=== PATIENT | female | born 1965 | race Caucasian/White ===

== ENCOUNTER 2020-01-11 11:29 | Emergency (ER) | payer OTHER ==
[~2020-01-11] VITALS: Ht 165.1 cm; Wt 107.5 kg
[2020-01-11] MEDS ORDERED: PROPRANOLOL HCL10 MG PO (12:04)
--- NOTE | 2020-01-11 12:14 | Emergency Department Note ---
History of Present Illnes History of Present Illness Chief Complaint: Genitourinary History of Present Illness This is a 54 year old female, the history of cirrhosis, hepatitis C, anxiety, portal vein thrombosis, and portal hypertension, who presents with a four-day history of progressively worsening burning on urination along with urinary frequency. She has not seen blood in the urine, but she has had a scant amount of blood on the tissue when wiping, after voiding. Patient denies any fever, chills, nausea, vomiting, abdominal pain, or vaginal discharge. Patient has had UTIs in the past, with last one being approximately 6 months ago. Historian: Patient Arrival Mode: Car Onset (how long ago): day(s) (4) Location: urinary tract Quality: burning/pain Radiation: Reports non-radiation Severity: moderate Onset quality: gradual Duration (how long): day(s) (4) Timing of current episode: constant Progression: worsening Chronicity: new Context: Denies recent illness, Denies trauma/injury, Denies new medications Relieving factors: none Exacerbating factors: none Associated symptoms: Denies chest pain, Denies cough, Denies fever/chills, Denies nausea/vomiting, Denies shortness of breath Treatments prior to arrival: none Past Medical/Family History Physician Review I have reviewed the patient's past medical and family history. Any updates have been documented here. Past Medical History Recent Fever: No Clinical Suspicion of Infectio: Yes New/Unexplained Change in Ment: No Past Medical History: Hepatitis C, Liver Disease, Anxiety, DVT/PE Other Medical History: Spleenomegally 2nd emily to cirrohsis Cirrohsis 2ndary ex etoh abuse (stopped drinking age 35) and Hepatitis C (now treated) Portal hypertension 2nd to cirrohsis Blood clots in Portal gustavo (measures 1.8cm) and SMV (Pt see's Dr Greta Zambrano in [place] for Hematology) EX-Etoh abuse Past Surgical History: (x4) Other Surgery: Left eye orbit rebuilt 2ndary to trauma Social History Smoking Cessation: Never Smoker Alcohol Use: None Any Illegal Drug Use: No TB Exposure/Symptoms: No Physically hurt or threatened: No Family History Family history of heart diseas: No Other Any Pre-Existing Lines (PICC,: No Is patient up to date on immun: No Review of Systems Review of Systems Constitutional: Denies chills, Denies fever, Denies weakness EENTM: Reports no symptoms Cardiovascular: Denies chest pain, Denies palpitations Respiratory: Denies cough, Denies dyspnea Gastrointestinal: Denies abdominal pain, Denies diarrhea, Denies nausea, Denies vomiting Genitourinary: Reports dysuria, Reports frequency; Denies discharge, Denies hematuria Musculoskeletal: Denies back pain, Denies neck pain Integumentary: Denies change in color, Denies rash Neurological: Denies headache, Denies weakness Psychological: Reports anxiety Review of other systems: All other systems negative Physical Exam Related Data Allergies: Coded Allergies: No Known Allergies (Unverified , 01/11/20) Triage Vital Signs Vital Signs Date Time Temp Pulse Resp B/P (MAP) Pulse Ox O2 Delivery O2 Flow Rate FiO2 01/11/20 11:38 98.4 57 18 119/79 100 Room Air Vital signs reviewed: Yes Physical Exam CONSTITUTIONAL Constitutional: Present well-developed, Present well-nourished; Absent distressed, Absent ill appearing HENT HENT: Present normocephalic, Present atraumatic, Present oropharynx clear/moist, Present nose normal; Absent rhinorrhea HENT L/R: Present left TM normal, Present right TM normal, Present left ext ear normal, Present right ext ear normal EYES Eyes: Reports PERRL, Reports conjunctivae normal NECK Neck: Present ROM normal; Absent cervical adenopathy PULMONARY Pulmonary: Present effort normal, Present breath sounds normal CARDIOVASCULAR Cardiovascular: Present regular rhythm, Present heart sounds normal, Present capillary refill normal, Present normal rate; Absent murmur GASTROINTESTINAL Abdominal: Present soft, Present nontender, Present bowel sounds normal; Absent tender, Absent guarding GENITOURINARY Genitourinary: Present exam deferred SKIN Skin: Present warm, Present dry; Absent rash MUSCULOSKELETAL Musculoskeletal: Present ROM normal; Absent tenderness NEUROLOGICAL Neurological: Present alert, Present oriented x 3, Present no gross motor or sensory deficits PSYCHOLOGICAL Psychological: Present mood/affect normal, Present judgement normal Results Laboratory Laboratory UA - blo - moderate, pro - 100 mg/dl, nit - positive; adolfo - small; Lab results reviewed: Yes Assessment & Plan Medical Decision Making MDM - Increase water intake, especially water. Recommend that you drink at least 8 bottles/water per day. - Follow-up with your PCP next week, to re-check your urine and blood work, due to the antibiotics. - Follow-up sooner, if your symptoms worsen. Assessment & Plan Final Impression: (1) Urinary tract infection (2) Dysuria Depart Disposition: HOME, SELF-CARE Last Vital Signs Date Time Temp Pulse Resp B/P (MAP) Pulse Ox O2 Delivery O2 Flow Rate FiO2 01/11/20 11:38 98.4 57 18 119/79 100 Room Air Home Meds Active Scripts Ciprofloxacin Hcl (CIPRO) 500 Mg Tablet, 500 MG PO BID for urinary tract infection for 7 Days, #14 TAB 0 Refills Prov:JANI NUNO MD 01/11/20 Phenazopyridine Hcl (PHENAZOPYRIDINE HCL) 100 Mg Tablet, 200 MG PO TID for urinary pain for 3 Days, #9 TAB 0 Refills Prov:JANI NUNO MD 01/11/20 Reported Medications Propranolol Hcl (PROPRANOLOL HCL) 10 Mg Tablet, 20 MG PO TID, TAB 01/11/20 JANI NUNO MD Jan 11, 2020 12:14
--- OUTSIDE RECORDS SUMMARY | 2020-01-11 12:34 | XMS REPORT | Clinical Summary ---
Author Author [facility] Organization [facility] Address Unknown Phone Unavailable Care Team Providers Care Emergency Room Clerk Name Role Phone PCP Unavailable Allergies Comments Active Allergy Reactions Severity Noted Date Morphine Nausea Only Medium 06/17/2009 Medications End Date Status Medication Sig Dispensed Refills Start Date Active lactulose (CEPHULAC, Take 1 Packet 90 Each 6 KRISTALOSE) 20 gram oral by mouth 3 3 packetIndications: times daily. Cirrhosis Active omeprazole (PRILOSEC) 20 Take 1 90 capsule 1 1 mg delayed release capsule by 3 capsuleIndications: mouth daily. Cirrhosis Active ergocalciferol (VITAMIN Take 1 16 capsule 1 D2) 50,000 unit capsule by 3 capsuleIndications: mouth weekly. Vitamin D deficiency Active ALPRAZolam (XANAX) 0.5 mg Take 0.5 mg 0 tablet by mouth 2 times daily. Active spironolactone Take 25 mg by 0 (ALDACTONE) 25 mg tablet mouth daily. Active promethazine (PHENERGAN) Take 25 mg by 0 25 mg tablet mouth every 6 hours as needed for Nausea or Vomiting. Active ONDANSETRON (ZOFRAN ODT Take by 0 OR) mouth. Active levothyroxine Take 25 mcg 0 (LEVOTHROID) 25 mcg by mouth tablet daily. Active PROPRANOLOL HCL Take by 0 (PROPRANOLOL OR) mouth. Active fluticasone (FLONASE) 50 Use 2 Sprays 16 g 0 mcg/actuation nasal in each 5 sprayIndications: nostril Bacterial sinusitis daily. Active albuterol (VENTOLIN Inhale 2 3 Month 0 HFA,PROVENTIL HFA,PROAIR Puffs by Supply 6 HFA) 90 mcg/actuation mouth 4 times inhalerIndications: Acute daily as bronchitis, unspecified needed for organism Wheezing or Shortness of Breath. Active cetirizine (ZYRTEC) 10 mg Take 1 tablet 30 tablet 0 tabletIndications: Acute by mouth 6 bronchitis, unspecified daily. organism Active Problems Problem Noted Date Vitamin D deficiency 01/30/2013 Second hand smoke exposure 01/26/2013 Pancytopenia 01/26/2013 Elevated AFP 01/26/2013 Anemia 10/27/2012 Positive DYLAN (antinuclear antibody) 10/27/2012 Stress at home 10/17/2012 Obesity 10/17/2012 Esophageal varices 04/20/2011 Insomnia 04/20/2011 Portosystemic encephalopathy 04/20/2011 Chronic headaches 04/20/2011 Portal hypertension 06/09/2010 Hypersplenism 06/09/2010 Cirrhosis; hep c ; splenomegaly - pancytopenia ;yuki l htn, esophageal 06/09/2010 varices ; AFP elevated Chronic Hepatitis- grade 4 stage 4 06/05/2009 Splenomegaly 06/05/2009 Depression/Anxiety 02/14/2009 Hepatitis C - h/of IV drugs in early 1989, as of 2012- no alcohol , no 09/17/2008 substance abuse ; ex-spouse with h/of h ep c and IV drug abuse Immunizations Name Administration Dates Next Due Influenza Vaccine 01/25/2015 (Deferred: Unava ilable-Patient to return for vaccine later - vaccine sent out b/c of storm warning), 01/26/2013 PPV 23 Pneumococcal 01/26/2013 Polysaccaride Tdap Tetanus, diphtheria, 01/26/2013 acellular pertussis Vaccine Twinrix-HEP A&b 03/11/2010, 11/04/2009, 09/09/200911/2009 Family History Medical History Relation Name Comments Cancer Father Diabetes Father Hypertension Father Arthritis Maternal Grandfather Pulmonary Maternal Grandfather Arthritis Maternal Grandmother Cancer Maternal Grandmother Stroke Maternal Grandmother Cancer Mother Heart Mother Arthritis Paternal Grandfather Hypertension Paternal Grandfather Arthritis Paternal Grandmother Hypertension Paternal Grandmother Relation Name Status Comments Brother Alive x5 Father Alive Maternal Grandfather Maternal Grandmother Mother Paternal Grandfather Paternal Grandmother Sister Alive x3 Social History Date Tobacco Use Types Packs/Day Years Used Never Smoker Smokeless Tobacco: Never Used Tobacco Cessation: Counseling Given: No Drinks/Week oz/Week Comments 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 Last Filed Vital Signs Not on file Plan of Treatment Health Maintenance Due Date Last Done Comments Breast Cancer Scrn 11/12/2009 11/12/2008 (Yearly) Cervical Cancer Scrn (3 08/01/2014 08/02/2011 Yrs) Colorectal Cancer Scrn 2017 Annual (FIT/FOBT) Age 50 to 75 Results Not on fileafter 01/10/2019 Insurance Type Payer Benefit Subscriber ID Effective Phone Address Plan / Dates Group [facility] xxxxxxxxx 2015-P [phone] [address] [address] [place] [address]
--- OUTSIDE RECORDS SUMMARY | 2020-01-11 12:34 | XMS REPORT | Clinical Summary ---
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 Active propranolol (INDERAL) 20 Take 20 mg by 0 04/27 MG tablet mouth. 8 Active spironolactone Take 25 mg by 0 (ALDACTONE) 25 MG tablet mouth. 8 Active cholecalciferol, vitamin Take 50,000 0 04/27 D3, 50,000 unit capsule Units by 8 mouth. Active promethazine (PHENERGAN) Take 25 mg by 0 25 MG tablet mouth every 6 (six) hours as needed for Nausea. Active ondansetron (ZOFRAN) 4 MG Take 4 mg by 0 tablet mouth 2 (two) times daily as needed for Nausea. Active albuterol HFA (VENTOLIN Inhale 1 puff 0 HFA) 90 mcg/actuation by mouth via inhaler inhaler every 6 (six) hours as needed for Wheezing. 08/09/2019 Discontinued NEXIUM 40 mg capsule daily . 0 8 08/09/2019 Discontinued propranolol (INDERAL) 20 Take 20 mg by 0 03/03 MG tablet mouth. 8 08/09/2019 Discontinued spironolactone Take 25 mg by 0 (ALDACTONE) 25 MG tablet mouth. 8 08/30/2019 Discontinued tretinoin (RETIN-A) 0.05 Apply 0 / /201 % cream sparingly to 8 areas of acne every night day for one week, then nightly if skin is not dry. Wear sunscreen. 08/30/2019 Discontinued clotrimazole (ALEVAZOL) 1 Apply 0 08/2 1/201 % Oint topically to 9 feet and between toes twice daily for 2-4 weeks Active Problems Problem Noted Date Abdominal pain, unspecified abdominal location 04/03 Nausea and vomiting, intractability of vomiting not s pecified, unspecified 04/03/2018 vomiting type Thrombocytopenia 04/03/2018 Chronic anticoagulation 04/03/2018 Cirrhosis of liver 05/10/2017 Last Assessment & Plan: Ms Chandra has a known diagnosis of cirr hosis, biopsy proven in 2008. She has had esophageal varices, unclear if banding was ever done. ? PSE. Review of records from [facility] reveal a normal EGD in 2008. Most recent EGD per patient was in 2012 which showe d small esophageal varices. We will do laboratory testing to exclud e other causes for chronic liver disease. Clinically, she appears early for liver transplantation but will await labs to calculate MELD score. If she does have HCC then she may need evaluation for liver transplantation. The plan was discussed with the patient and caregiver. Chronic hepatitis C without hepatic coma 05/10/2017 Last Assessment & Plan: HCV infection, s/p treatment with SOF/R BV and has achieved SVR. Screening for endocrine/metabolic/immunity disorders 05/10/2017 Last Assessment & Plan: Serological tests will be completed to determine the presence of immunity to hepatitis A and B. If found suscepti ble she will be referred to her primary care provider to consider the a dministration of the appropriate vaccines. Screening for malignant neoplasm 05/10/2017 Last Assessment & Plan: Cirrhosis, regardless of etiology, is a risk factor for hepatocellular carcinoma (HCC), with an annual inciden ce of 1.5-7%. We recommend surveillance for HCC with abdominal yasir ging and alphafetoprotein every 6 months. Imaging and serum AFP has been requested. Portal hypertension 05/10/2017 Last Assessment & Plan: She is overdue for EGD, advised to get it done through Dr Nunez and provide us a copy. If an EGD has been d one after 2012 then a copy of the procedure will suffice to make further recommendations. Hepatic encephalopathy 05/10/2017 Encounters Care Team Description Date Type Specialty Abbe Keenan MD Hall, Sophia Marie, NP Cirrhosis of liver without ascites, unsp ecified hepatic cirrhosis type (HCC) (Primary Dx); Screening for malignant neoplasm 01/07/2020 Audio - Hepatology Telemedicine Kayla Danielle MA 01/04/2020 Documentation Hepatology Jeanna Prajapati MD [address] [facility] Room Hoarseness 12/13/2019 Hospital Computed Tomography Encounter Jeanna Prajapati MD [address] [facility] Room Left-sided chest pain 12/13/2019 [facility] Computed Tomography Encounter Jeanna Prajapati MD [address] [facility] Room Abdominal pain, unspecified abdominal lo cation; Portal hypertension (HCC); NAFLD (nonalcoholic fatty liver disease); Portal vein thrombosis; Splenic sequestration 12/13/2019 Hospital Computed Tomography Encounter Jeanna Prajapati MD Phlebolithiasis (Primary Dx) 12/13/2019 Outside Orders Central Scheduling Jeanna Prajapati MD Hoarseness (Primary Dx); Left-sided chest pain 11/09/2019 Outside Orders Central Scheduling Abbe Keenan MD Gaikwad, Tanmayi A., [employer] OUT[employer] ENGINE MECHANIC Cirrhosis of liver without ascites, unsp ecified hepatic cirrhosis type (HCC) (Primary Dx) 10/17/2019 Audio - Hepatology Telemedicine Martha Castillo MA virtual video appt 10/16/2019 Telephone Hepatology Olga Domínguez NP Cirrhosis of liver without ascites, unsp ecified hepatic cirrhosis type (HCC) (Primary Dx); Screening for malignant neoplasm; Abnormal liver diagnostic imaging 10/11/2019 Orders Only Hepatology Kayla Danielle MA Appointment 09/28/2019 Telephone Hepatology Jeanna Prajapati MD Abdominal pain, unspecified abdominal lo cation (Primary Dx); Portal hypertension (HCC); NAFLD (nonalcoholic fatty liver disease); Portal vein thrombosis; Splenic sequestration 08/31/2019 Outside Orders Central Scheduling 08/09/2019 Hospital Pre-Admission Testi ng Encounter 08/09/2019 Travel Jeanna Prajapati MD Tendinopathy of left rotator cuff (Prima ry Dx) 01/10/2019 Outside Orders Central Scheduling Jeanna Prajapati MD 01/10/2019 Outside Orders Central Scheduling after 01/10/2019 Family History Medical History Relation Name Comments Diabetes Father Heart disease Mother Cancer Sister Unremarkable Sister Hyperlipidemia Sister Relation Name Status Comments Father Alive Mother Sister Alive Sister Alive Sister Alive Social History Date Tobacco Use Types Packs/Day Years Used Never Smoker Smokeless Tobacco: Never Used Alcohol Use Drinks/Week oz/Week Comments No Alcohol Habits Answer Date Recorded How often do you have a drink containing alcohol? Never 08/09/2019 How many drinks containing alcohol do you have on No t asked a typical day when you are drinking? How often do you have six or more drinks on one Not asked occasion? Sex Assigned at Date Recorded Not on file Industry Job Start Date Occupation Not on file Not on file Not on file Travel End Travel History Travel Start No recent travel history available. Last Filed Vital Signs Time Taken Vital Sign Reading - Blood Pressure - - Pulse - - Temperature - - Respiratory Rate - - Oxygen Saturation - - Inhaled Oxygen - Concentration 08/09/2019 1:47 PM CDT Weight 103.9 kg (229 lb) 08/09/2019 1:47 PM CDT Height 165.1 cm (5' 5") 08/09/2019 1:47 PM CDT Body Mass Index 38.11 Plan of Treatment Health Maintenance Due Date Last Done Comments COLON CANCER SCREENING 1967 COLONOSCOPY CERVICAL CANCER SCREENING 01/28/1988 PAP ONLY (Age 21-65) LIPID PANEL 01/28/2012 INFLUENZA VACCINE (#1) 2019 BREAST CANCER SCREENING 04/03/2020 04/03/2018 PNEUMOCOCCAL VACCINE 2-64 Completed 01/26/2013 YEARS AT RISK Procedures Comments Procedure Name Priority Date/Time Associated Diag nosis CT NECK SOFT TISSUE WITH Routine 12/13/2019 Hoar seness IV CONTRAST 10:[address] ABDOMEN/PELVIS WITH & STAT 12/13/2019 Abdom inal pain, WITHOUT IV CONTRAST 10:49 AM CDT unspecified abdom inal location Portal hypertension (HCC) NAFLD (nonalcoholic fatty liver disease) Portal vein thrombosis Splenic sequestration POCT-CREATININE Routine 12/13/2019 10:22 AM CDT after 01/10/2019 Results * CT neck soft tissue with IV contrast (12/13/2019 10:59 AM CDT) Specimen Narrative Performed At FINAL REPORT [facility] Examination:CT, SOFT TISSUE NECK, WITH IV CONTRAST History: Hoarseness; throat pain. Dysph agia. Comparison studies: None Technique: Axial images from the skull base to the thoracic inlet Coronal and sagittal reformatted images . Dose modulation, iterative reconstructi on, and/or weight based adjustment of the mA/kV was utilized to reduce the radiation dose to as low as reasonably achievable. Intravenous contrast: 75mL of Isovue 30 0. Findings: Soft tissues: No abnormalities. Aerodigestive tract: No abnormality. Lymph nodes: No radiographically significant adenopa thy. Vessels: Arteries and veins are patent. Thyroid gland: Normal in size and homogeneous. Submandibular glands: Normal in size and homogeneous. Parotid glands: Normal in size and homogeneous. Orbits: No abnormalities. Paranasal sinuses: Chronic right maxill emily sinusitis. Scattered inflammatory mucosal thickening of the bilateral ethmoid air cells. Mild inflammatory mucosal thickening of the bilateral inferior frontal and anterior bilateral sphenoid sinuses. 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 Temporal bones: No abnormalities. Skull base and facial bones:Intact. Cervical spine: No disc bulge or herniation or foramina l or canal stenosis. Visualized lung apices: No abnormalities. IMPRESSION: No abnormality of the pharynx or larynx . Signed: Ashley Eng MD Report Verified Date/Time: 0 10:30:10 Reading Location: [address] [id number] Procedure Note Interface, External Ris In - 12/14/2019 10:32 AM CDT FINAL REPORT Examination:CT, SOFT TISSUE NECK, WITH IV CONTRAST History: Hoarseness; throat pain. Dysphagia. Comparison studies: None Technique: Axial images from the skull base to the thoracic inlet Coronal and sagittal reformatted images. Dose modulation, iterative reconstruction, and/or weight based adjustment of the mA/kV was utilized to reduce the radiation dose to as low as reasonably achievable. Intravenous contrast: 75mL of Isovue 300. Findings: Soft tissues: No abnormalities. Aerodigestive tract: No abnormality. Lymph nodes: No radiographically significant adenopathy. Vessels: Arteries and veins are patent. Thyroid gland: Normal in size and homogeneous. Submandibular glands: Normal in size and homogeneous. Parotid glands: Normal in size and homogeneous. Orbits: No abnormalities. Paranasal sinuses: Chronic right maxillary sinusitis. Scattered inflammatory mucosal thickening of the bilateral ethmoid air cells. Mild inflammatory mucosal thickening of the bilateral inferior frontal and anterior bilateral sphenoid sinuses. 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 Temporal bones: No abnormalities. Skull base and facial bones: Intact. Cervical spine: No disc bulge or herniation or foraminal or canal stenosis. Visualized lung apices: No abnormalities. IMPRESSION: No abnormality of the pharynx or larynx. Signed: Ashley Eng MD Report Verified Date/Time: 12/14/2019 10:30:10 Reading Location: [facility] Reading Room [address] [place] [address] Performing Organization Address City/State/Zipcode Ph one Number [employer] RIS * CT abdomen/pelvis without & with IV contrast (12/13/2019 10:49 AM CDT) Specimen Narrative Performed At FINAL REPORT [facility] CT of the abdomen with and without cont rast, CT of chest and pelvis with contrast Clinical History:Abdominal pain, un specified abdominal location Technique: CT of the abdomen is perform ed without IV contrast, followed by CT of chest, abdomen and pe lvis performed with intravenous contrast administration and without oral contrast administration.This exam was perfor med according to our departmental dose optimization program which includes automated exposure control, adjustment of the mA and/or kV according to patient's size and/or use of iterative reconstructive technique. Comparison Film:None Discussion: There is no supraclavicular, axillary, mediastinal or hilar lymphadenopathy. Visualized thyroid gla nd is unremarkable. Heart is normal in size, no pericardial effusion . Periesophageal varices are noted. There is no mass or consolidation, no p leural effusion. The central airways are patent, no significant bron chiectasis, or bronchial wall thickening. Liver is cirrhotic. No suspicious liver mass is identified. The periumbilical vein is recanalized. No b iliary ductal dilatation, gallbladder is normal. There is nonoccl usive thrombus in the main portal vein and SMV, main portal vein m easures 1.8 cm in diameter. Spleen is markedly enlarged and measure s 21.6 cm sagittally. The pancreas, adrenal glands appear unremar kable. Kidneys demonstrate no hydronephrosis, mass or radiopaque ston e. No evidence of bowel obstruction, or ab normal bowel wall thickening. No pericecal inflammatory change. In the pelvis, the bladder, uterus and adnexa are unremarkable. There is a small umbilical hernia conta ining varices. No ascites. No adenopathy. Bony structures demonstrate early degenerative changes. No suspicious bony lesion is identified . Impression: Cirrhosis and splenomegaly. 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 Signed: Adrian Gamez MD Report Verified Date/Time: 0 11:32:42 Reading Location: [facility] C013X [employer] Reading Room Procedure Note Interface, External Ris In - 12/13/2019 3:[address] FINAL REPORT CT of the abdomen with and without contrast, CT of chest and pelvis with contrast Clinical History: Abdominal pain, unspecified abdominal location Technique: CT of the abdomen is performed without IV contrast, followed by CT of chest, abdomen and pelvis performed with intravenous contrast administration and without oral contrast administration. This exam was performed according to our departmental dose optimization program which includes automated exposure control, adjustment of the mA and/or kV according to patient's size and/or use of iterative reconstructive technique. Comparison Film: None Discussion: There is no supraclavicular, axillary, mediastinal or hilar lymphadenopathy. Visualized thyroid gland is unremarkable. Heart is normal in size, no pericardial effusion. Periesophageal varices are noted. There is no mass or consolidation, no pleural effusion. The central airways are patent, no significant bronchiectasis, or bronchial wall thickening. Liver is cirrhotic. No suspicious liver mass is identified. The periumbilical vein is recanalized. No biliary ductal dilatation, gallbladder is normal. There is nonocclusive thrombus in the main portal vein and SMV, main portal vein measures 1.8 cm in diameter. Spleen is markedly enlarged and measures 21.6 cm sagittally. The pancreas, adrenal glands appear unremarkable. Kidneys demonstrate no hydronephrosis, mass or radiopaque stone. No evidence of bowel obstruction, or abnormal bowel wall thickening. No pericecal inflammatory change. In the pelvis, the bladder, uterus and adnexa are unremarkable. There is a small umbilical hernia containing varices. No ascites. No adenopathy. Bony structures demonstrate early degenerative changes. No suspicious bony lesion is identified. Impression: Cirrhosis and splenomegaly. 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 Signed: Adrian Gamez MD Report Verified Date/Time: 12/13/2019 11:32:42 Reading Location: [facility] B1 C013X Ortho Consult Reading Room Performing Organization Address City/[facility]/Zipcode Ph one Number GE RIS * POC-Creatinine (12/13/2019 10:22 AM CDT) POC-Creatinine 0.6Comment: : TESTED AT [facility] 0.6 - 1.3 mg/dL [place] [id number] [place] [address]: [employer] Furnace Tender/Wash Crew Person ID = [id number] for CLARITA LIRIANO POC-EGFR 105 mL/min/1.73M2 [facility] Specimen Blood Performing Organization Address [facility] Ph one Number [facility] [address] [place] [address] [phone] after 01/10/2019 Insurance Payer Benefit Subscriber ID Type Phone Address Plan / Group BOSS MEDICAID MEDICAID xxxxxxxxx BOSS [id number]
--- OUTSIDE RECORDS SUMMARY | 2020-01-11 12:35 | XMS REPORT | Continuity of Care Document ---
Author Author [facility] t Organization [facility] Address [address] [place] [address] Phone Unavailable Care Team Providers Care Renal Dialysis Technician Name Role Phone Alo DESAI, Jeanna PCP Tita Keenan MD Attphys Sang SKI LIFT MECHANIC, Iliana Espinoza Attphys Kayla Danielle MA Attphys Unavailable Ro Barfield Attphys Talia Ely Attphys Patricia Alicea Attphys Unavailable Justo-Jo-Ann Diaz Attphys Unavailable Nakul Kincaid Attphys Unavailable Nakul Garduno Attphys Unavailable Jeanan Guillaume MD Attphys 1, [address] Room [facility] Attphys Unavailable JEANNA GUILLAUME Attphys Unavailable Taye Acosta Attphys Unavailable Renetta May Attphys Unavailable Brandy Spangler Attphys Martha Castillo MA Attphys Unavailable Justus Tripathi MD Attphys Connie Colon Attphys Unavailable Zoya Louis Attphys Rosalinda DESAI, Hemalatha Attphys Brittney Palmira Attphys Clarita Flores Attphys Unavailable Wells, Stephanie Attphys Unavailable Caraballo, Jennifer Attphys Unavailable Wevicki MedAdherence,, Jaleesa Attphys Unavailabl e Salas, G Paulina Attphys Unavailable Alo DESAI, Jeanna Attphys FELIPA CAROLE BACA Attphys Unavailable ILIANA BURDEN Attphys Unavailable Lico Ro Unavailable Payers Payer Name Policy Type Policy Number Effective Date Expiration Date Govind crum BOSS MEDICAIDMEDICAID [id number] xxxxxxxxx [facility] Problems Condition Name Condition Details Condition Category Status Onset Date Resolution Date Last Treatment Date Treating Clinician Comments Source ADJUSTMENT DISORDER, W/ MIXED ANXIETY AND DEPRESSED MOOD Condition Active 2020-01-03 00:00:00 2020-01-03 09:35:07 Ro Barfield [facility] 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 Condition Active 2019-01-11 00:00:00 2019-01-11 09:14:08 Ro Barfield [facility] SOCIAL ANXIETY DISORDER / SOCIAL PHOBIA Condition Active 2018-12-30 00:00:00 2018-12-30 10:14:40 Ro Barfield [facility] PTSD Condition Active 2018-12-30 00:00:00 2018-12-30 10:1 4:40 L[facility] Abdominal pain, unspecified abdominal location Abdomin al pain, unspecified abdominal location Disease Active 2018-04-03 00:00:00 [facility] Nausea and vomiting, intractability of v omiting not specified, unspecified vomiting type Nausea and vomiting, intractability of v omiting not specified, unspecified vomiting type Disease Active 2018-04-03 00:00:00 [facility] Thrombocytopenia Thrombocytopenia Disease Active 2018-04-03 00:00:00 [facility] Chronic anticoagulation Chronic anticoagulation Disease Active 2018-04-03 00:00:00 [facility] Cirrhosis of liver Cirrhosis of liver Disease Active 2017-05-10 00:00:0 0 Last Assessment & Plan: Ms Chandra has a known diagnosis of cirrhosis, biopsy proven in 2008. She has had esophageal varices, unclear if banding was ever done. ? PSE. Review of [facility] reveal a normal EGD in 2008. Most recent EGD per patient was in 2012 which showed small esophageal varices. We will do laboratory testing to exclude other causes for chronic liver disease. Clinically, she appears early for liver transplantation but will await labs to calculate MELD score. If she does have HCC then she may need evaluation for liver transplantation.The plan was discussed with the patient and caregiver. [facility] Chronic hepatitis C without hepatic coma Chronic hepat itis C without hepatic coma Disease Active 2017-05-10 00:00:00 Last Assessment & Plan: HCV infection, s/p treatment with SOF/RBV and has achieved SVR. [facility] Screening for malignant neoplasm Screening for malignant neoplas m Disease Active 2017-05-10 00:00:00 Last Ass essment & Plan: Cirrhosis, regardless of etiology, is a risk factor for hepatocellular carcinoma (HCC), with an annual incidence of 1.5-7%. We recommend surveillance for HCC with abdominal imaging and alphafetoprotein every 6 months. Imaging and serum AFP has been requested. [facility] Portal hypertension Portal hypertension Disease Active 2017-05-10 00:00 :00 Last Assessment & Plan: She is overdue f or EGD, advised to get it done through Dr Mora and provide us a copy. If an EGD has been done after 2012 then a copy of the procedure will suffice to make further recommendations. [facility] Hepatic encephalopathy Hepatic encephalopathy Disease Active 2017-05-10 00:00:00 [facility] Vitamin D deficiency Vitamin D deficiency Disease Active 00:00:00 [facility] Second hand smoke exposure Second hand smoke exposure Disease Active 2013-01-26 00:00:00 [facility] Pancytopenia Pancytopenia Disease Active 2013-01-26 00:00:00 [facility] Elevated AFP Elevated AFP Disease Active 2013-01-26 00:00:00 [facility] Anemia Anemia Disease Active 2012-10-27 00:00:00 [facility] Positive DYLAN (antinuclear antibody) Positive DYLAN (antinuclear an tibody) Disease Active 2012-10-27 00:00:00 Erin campbell [facility] Stress at home Stress at home Disease Active 2012-10-17 00:00:00 [facility] Obesity Obesity Disease Active 2012-10-17 00:00:00 [facility] Esophageal varices Esophageal varices Disease Active 2011-04-20 00:00:0 0 [facility] Insomnia Insomnia Disease Active 2011-04-20 00:00:00 [facility] 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 2011-04-20 00:00:00 [facility] ealth Chronic headaches Chronic headaches Disease Active 2011-04-20 00:00:00 [facility] Portal hypertension Portal hypertension Disease Active 2010-06-09 00:00 :00 [facility] Hypersplenism Hypersplenism Disease Active 2010-06-09 00:00:00 [facility] Cirrhosis; hep c ; splenomegaly - pancyt openia ;portal htn, esophageal varices ; AFP elevated Cirrhosis; hep c ; splenomegaly - pancyt openia ;portal htn, esophageal varices ; AFP elevated Disease Active 2010-06-09 00:00:00 [facility] Chronic Hepatitis- grade 4 stage 4 Chronic Hepatitis- grade 4 st age 4 Disease Active 2009-06-05 [facility] Splenomegaly Splenomegaly Disease Active 2009-06-05 00:00:00 [facility] Depression/Anxiety Depression/Anxiety Disease Active 2009-02-14 00:00:0 0 [facility] Hepatitis C - h/of IV drugs in early 0, as of 10/2012- no alcohol , no substance abuse ; ex-spouse with h/of hep c and IV drug abuse Hepatitis C - h/of IV drugs in early 1989, as of 10/2012- no alcohol , no substance abuse ; ex-spouse with h/of hep c and IV drug abuse Disease Active 200 12-09-15 00:00:00 [facility] Allergies, Adverse Reactions, Alerts Allergy Name Allergy Type Status Severity Reaction(s) Onset Date Inacti ve Date Treating Clinician Comments Source fentanyl DA Active SV 2018-11-29 00:00:00 [facility] Fentanyl Propensity to adverse reactions Active Itching 2018-11 00:00:00 [facility] No Known Allergies DA Active U 2018-07-24 00:00:00 [facility] No Known Allergies DA Active U 2018-05-22 00:00:00 [facility] No Known Allergies DA Active U 2017-06-02 00:00:00 [facility] Morphine Propensity to adverse reactions to drug Active Nausea Only 2009-06-17 00:00:00 [facility] Morphine Propensity to adverse reactions Active [facility] Family History Family Member Diagnosis Comments Start Date Stop Date Source Natural mother Heart disease [facility] Natural mother Cancer [facility] Natural mother Heart [facility] [place] Natural sister Cancer [facility] Natural sister Unremarkable [facility] Natural sister Hyperlipidemia [facility] Natural father Cancer [facility] [place] Natural father Diabetes [facility] [place] Natural father Hypertension [facility] Maternal grandfather Arthritis [facility] Maternal grandfather Pulmonary [facility] Maternal grandmother Arthritis [facility] Maternal grandmother Cancer [facility] Maternal grandmother Stroke [facility] Paternal grandfather Arthritis [facility] Paternal grandfather [facility] Paternal grandmother Arthritis [facility] Paternal grandmother Hypertension [facility] Social History Social Habit Start Date Stop Date Quantity Comments Source History SDOH Alcohol Std Drinks [facility] History SDOH Alcohol Binge [facility] Sex [facility] drug use, illicit 2020-01-03 09:08:31 2020-01-03 09:08:31 [facility] alcohol use 2020-01-03 09:08:31 2020-01-03 09:08:31 Never [facility] social history E&M 2020-01-03 09:08:31 2020-01-03 09:08:31 [place] [id number] children ( 19, 20, 29, 28 yo) from the marriage Not homeless. lives with her partner for 15 yrHighest education level: high school graduate. worked as MA, on SSD due to PTSD Sex at : Female. Gender of partner(s): Male. Sexually Active: Yes. [facility] social history reviewed E&M 2020-01-03 09:08:31 2020-01-03 09:08 :31 reviewed today [facility] tobacco use (cigarettes, cigar, chew, pipe) 2020-01-03 09:08 :31 2020-01-03 09:08:31 Currently [facility] time of call 2019-12-13 09:59:53 2019-12-13 09:59:53 12/13/2019 9:59 AM [facility] History SDOH Alcohol Frequency 2019-08-09 00:00:00 2019-08-09 00:00:0 0 1 [facility] Weight Management Counseling Provided 2019-03-15 09:43:21 2018-05-16 09:43:21 Follow Up Done [facility] smoking, advice to quit 2018-12-30 09:12:41 2018-12-30 09:12:41 Yes [facility] home/family situation, assessment 2018-12-30 09:12:41 2018-12-30 09:12:41 lives with her partner for 15 yr [facility] sex at 2018-12-30 09:12:41 2018-12-30 09:12:41 Female [facility] patient considered to be homeless 2018-12-30 09:12:41 2018-12-30 09:1 2:41 No [facility] family support 2018-12-30 09:12:41 2018-12-30 09:12:41 [place] [id number] children ( 19, 20, 29, 28 yo) from the marriage [facility] Alcohol intake 2015-12-11 00:00:00 2015-12-11 00:00:00 Current non-drinker of alcohol (finding) [facility] Alcohol Comment 2009-02-14 00:00:00 2009-02-14 00:00:00 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 Ordering Clinician Indication Dosage Frequency Signature (SIG) Comments Components Source (ALPRAZOLAM) 2 MG TABS 2019-12-14 00:00:00 Yes Ro Barfield 1{Tablet} 2xD 1 tab p.o. Twice a Day for anxiety [facility] (ALPRAZOLAM) 2 MG TABS 2019-12-14 00:00:00 2019-12-14 00:00:00 N o Ro Barfield 1{Tablet} 2xD 1 tab Twice a Day As Needed for anxiety [facility] (ALPRAZOLAM) 2 MG TABS 2019-12-11 00:00:00 2019-12-14 00:00:00 N o Ro Barfield 1{Tablet} 2xD 1 tab p.o. Twice a Day [facility] EFFEXOR XR (VENLAFAXINE HCL) 37.5 MG [id number] 2 00:00:00 2019-01-11 00:00:00 No Starr Lico 1 pill Every Morning [facility] (PRAZOSIN HCL) 2 MG CAPS 2018-12-30 00:00:00 2019-01-11 00:00:00 No Starr Lico 1 pill p.o. take at bedtime [facility] (ALPRAZOLAM) 2 MG TABS 2018-12-22 00:00:00 2019-12-11 00:00:00 N addison Barfield TAKE 1 TABLET BY MOUTH TWICE DAILY NEEDED #60, 30 d ays supply, Prescribed by JEANNA GUILLAUME, Filled 12/22/2018 [facility] clotrimazole (ALEVAZOL) 1 % Oint 2018-11-22 00:00:00 2019-08 18:57:57 No Apply topically to feet and between toes twice daily for 2-4 weeks [facility] VITAMIN D (ERGOCALCIFEROL) (ERGOCALCIFEROL) 1.25 MG (44856 U T) CAPS 2018-10-27 00:00:00 Yes TAKE 1 CAPSULE BY MOUTH ONCE EVERY MONTH #1, 28 days supply, Prescribed by JEANNA GUILLAUME, Filled 12/17/2018 [facility] (PROPRANOLOL HCL) 20 MG TABS 2018-08-17 00:00:00 Yes TAKE 1 TABLET BY MOUTH ONCE DAILY #30, 30 days supply, Prescribed by JOLEEN CHICAS, Filled 12/17/2018 [facility] propranolol (INDERAL) 20 MG tablet 2018-03-03 00:00:00 202 00:00:00 No 20mg Take 20 mg by mouth. [facility] spironolactone (ALDACTONE) 25 MG tablet 00:00:00 2019-08-09 00:00:00 No 25mg Take 25 mg by mouth. [facility] tretinoin (RETIN-A) 0.05 % cream 2017-10-20 00:00:00 2019-08 18:57:57 No Apply sparingly to a reas of acne every night day for one week, then nightly if skin is not dry. Wear sunscreen. [facility] promethazine (PHENERGAN) 25 MG tablet 2017-05-10 09:53:50 Y es 25mg Take 25 mg by mouth every 6 (six) hours as needed for Nausea. [facility] ondansetron (ZOFRAN) 4 MG tablet 2017-05-10 09:53:50 Yes 4mg Take 4 mg by mouth 2 (two) times daily as needed for Nausea. [facility] albuterol HFA (VENTOLIN HFA) 90 mcg/actuation inhaler 2017-05-10 09:53:50 Yes 1{puff} Inhale 1 puff b y mouth via inhaler every 6 (six) hours as needed for Wheezing. [facility] ALPRAZolam (XANAX) 0.5 MG tablet 2017-04-27 00:00:00 Yes 3 (three) times daily as needed . [facility] propranolol (INDERAL) 20 MG tablet 2017-04-27 00:00:00 Yes 20mg Take 20 mg by mouth. [facility] spironolactone (ALDACTONE) 25 MG tablet 2017-04-27 00:00:00 Yes 25mg Take 25 mg by mouth. [facility] cholecalciferol, vitamin D3, 50,000 unit capsule 2017-04-27 00:00:00 Yes [id number] Take 50,000 Units by mouth. [facility] NEXIUM 40 mg capsule 2017-04-26 00:00:00 2019-08-09 00:00:00 No QD daily . [facility] albuterol (VENTOLIN HFA,PROVENTIL HFA,PROAIR HFA) 90 mcg/act uation inhaler 2015-12-11 00:00:00 Yes Acute bronchitis, unspecified organism 2{puff} Inhale 2 Puffs by mouth 4 times daily as needed for Wheezing or Shortness of Breath. [facility] cetirizine (ZYRTEC) 10 mg tablet 2015-12-11 00:00:00 Yes Acute bronchitis, unspecified organism 10mg QD Take 1 tablet by mouth daily. [facility] ALPRAZolam (XANAX) 0.5 mg tablet 2015-01-25 13:36:17 Yes .5mg Q.5D Take 0.5 mg by mouth 2 times daily. [facility]th spironolactone (ALDACTONE) 25 mg tablet 2015-01-25 13:36:17 Yes 25mg QD Take 25 mg by mouth daily. [facility] promethazine (PHENERGAN) 25 mg tablet 2015-01-25 13:36:17 Y es 25mg Take 25 mg by mouth every 6 hours as needed for Nausea or Vomiting. [facility] ONDANSETRON (ZOFRAN ODT OR) 2015-01-25 13:36:17 Yes Take by mouth. [facility] levothyroxine (LEVOTHROID) 25 mcg tablet 2015-01-25 13:36:17 Yes 25ug QD Take 25 mcg by mouth daily. [facility] PROPRANOLOL HCL (PROPRANOLOL OR) 2015-01-25 13:36:17 Yes Take by mouth. [facility] fluticasone (FLONASE) 50 mcg/actuation nasal spray 2015-01 00:00:00 Yes Bacterial sinusitis 2{spray} QD Use 2 Sprays in each nostril d aily. [facility] ergocalciferol (VITAMIN D2) 50,000 unit capsule 2013-01-30 0 0:00:00 Yes Vitamin D deficiency [id number] Take 1 capsule by mouth weekly. [facility] lactulose (CEPHULAC, KRISTALOSE) 20 gram oral packet 2 00:00:00 Yes Cirrhosis 20g Take 1 Packet by mouth 3 times daily. [facility] omeprazole (PRILOSEC) 20 mg delayed release capsule 2012-04 00:00:00 Yes Cirrhosis 20mg QD Take 1 capsule by mouth daily. [facility] Immunizations Ordered Immunization Name Filled Immunization Name Date Status Comments Source Tdap Tetanus, diphtheria, acellular pertussis Vaccine 2013-01-26 00:00:00 Completed [facility] PPV 23 Pneumococcal Polysaccaride 2013-01-26 00:00:00 Comp leted [facility] Influenza Vaccine 2013-01-26 00:00:00 Completed [facility] Twinrix-HEP A&b 2010-03-11 00:00:00 Completed [facility] Twinrix-HEP A&b 2009-11-04 00:00:00 Completed [facility] Twinrix-HEP A&b 2009-09-09 00:00:00 Completed [facility] Vital Signs Vital Name Observation Time Observation Value Comments Source Body height 2019-08-09 13:47:00 165.1 cm [facility] Body weight Measured 2019-08-09 13:47:00 103.874 kg [facility] BMI 2019-08-09 13:47:00 38.11 kg/m2 [facility] blood pressure, diastolic 2019-06-07 10:02:49 95 mm[Hg] [facility] blood pressure, systolic 2019-06-07 10:02:49 138 mm[Hg] [facility] pulse rate 2019-06-07 10:02:49 65 /min [facility] weight E&M 2019-06-07 10:02:49 229.25 [lb_av] [facility] weight in kilograms E&M 2019-06-07 10:02:49 104.20 kg [facility] height in centimeters E&M 2019-06-07 10:02:49 165.10 cm [facility] blood pressure, diastolic 2019-04-13 10:10:29 68 mm[Hg] [facility] blood pressure, systolic 2019-04-13 10:10:29 136 mm[Hg] [facility] pulse rate 2019-04-13 10:10:29 63 /min [facility] weight E&M 2019-04-13 10:10:29 235.40 [lb_av] [facility] weight in kilograms E&M 2019-04-13 10:10:29 107 kg [facility] height in centimeters E&M 2019-04-13 10:10:29 165.10 cm [facility] blood pressure, diastolic 2019-03-15 09:43:21 83 mm[Hg] [facility] blood pressure, systolic 2019-03-15 09:43:21 138 mm[Hg] [facility] pulse rate 2019-03-15 09:43:21 61 /min [facility] weight E&M 2019-03-15 09:43:21 233.50 [lb_av] [facility] weight in kilograms E&M 2019-03-15 09:43:21 106.14 kg [facility] height in centimeters E&M 2019-03-15 09:43:21 165.10 cm [facility] blood pressure, diastolic 2019-02-08 08:17:29 82 mm[Hg] [facility] blood pressure, systolic 2019-02-08 08:17:29 133 mm[Hg] [facility] pulse rate 2019-02-08 08:17:29 70 /min [facility] weight E&M 2019-02-08 08:17:29 234.13 [lb_av] [facility] weight in kilograms E&M 2019-02-08 08:17:29 106.42 kg [facility] height in centimeters E&M 2019-02-08 08:17:29 165.10 cm [facility] blood pressure, diastolic 2019-01-11 08:17:01 81 mm[Hg] [facility] blood pressure, systolic 2019-01-11 08:17:01 136 mm[Hg] [facility] pulse rate 2019-01-11 08:17:01 58 /min [facility] weight E&M 2019-01-11 08:17:01 231.25 [lb_av] [facility] weight in kilograms E&M 2019-01-11 08:17:01 105.11 kg [facility] height in centimeters E&M 2019-01-11 08:17:01 165.10 cm [facility] blood pressure, diastolic 2018-12-30 09:12:41 83 mm[Hg] [facility] blood pressure, systolic 2018-12-30 09:12:41 124 mm[Hg] [facility] pulse rate 2018-12-30 09:12:41 64 /min [facility] height in centimeters E&M 2018-12-30 09:12:41 165.10 cm [facility] weight E&M 2018-12-30 09:12:41 231.20 [lb_av] [facility] weight in kilograms E&M 2018-12-30 09:12:41 105.09 kg [facility] Procedures Procedure Date / Time Performed Performing Clinician Sour e CT NECK SOFT TISSUE WITH IV CONTRAST 2019-12-13 10:59:00 Emely rosen [facility] CT ABDOMEN/PELVIS WITH & WITHOUT IV CONTRAST 2019-12-13 10:49:00 Alo [facility] POCT-CREATININE 2019-12-13 10:22:00 Alo, [facility] Urine Drug Screen - In House 2019-02-08 09:04:58 Lico[facility] Diagnostic evaluation with medical - [id number] 2018-12-30 10:03:46 Q jostin [facility] Plan of Care Planned Activity Planned Date Details Comments Source Future Scheduled Test 2020-04-03 00:00:00 Screening for yoon gnant neoplasm of breast (procedure) [code = 604876009] [facility] Future Scheduled Test 2019-12-04 00:00:00 INFLUENZA VACCINE (#1) [code = INFLUENZA VACCINE (#1)] [facility] Future Scheduled Test 2017 00:00:00 Screening for yoon gnant neoplasm of colon (procedure) [code = 698673405] [facility] Scheduled Test 2014-08-01 00:00:00 Screening for yoon gnant neoplasm of cervix (procedure) [code = 630760688] [facility] Scheduled Test 2012-01-28 00:00:00 Lipid panel (proce dure) [code = 35280436] [facility] Future Scheduled Test 2009-11-12 00:00:00 Breast Cancer Scrn (Yearly) [code = Breast Cancer Scrn (Yearly)] [facility] Scheduled Test 1988-01-28 00:00:00 Screening for yoon gnant neoplasm of cervix (procedure) [code = 934341977] [facility] Future Scheduled Test 1967 00:00:00 Screening for yoon gnant neoplasm of colon (procedure) [code = 337653027] [facility] Encounters Start Date/Time End Date/Time Encounter Type Admission Type [facility] Department Encounter ID Source 2019-11-09 08:23:38 Outpatient MHSE MHSE [id number] [facility] 2020-01-03 00:00:00 2020-01-03 00:00:00 Office Visit Ro Barfield [facility] Encounter/[id number] [facility] 2020-01-03 00:00:00 2020-01-03 00:00:00 Office Visit Becca Ely [facility] Encounter/[id number] [facility] 2019-12-17 00:00:00 2019-12-17 00:00:00 Office Visit Patricia Landa Maria Romero, Jose E Zuniga Flores, Carlos E [facility] Encounter/[id number] [facility] 2019-12-14 00:00:00 2019-12-14 00:00:00 Office Visit Ro Lujan Nancy Romero, Jose E [facility] Encounter/[id number] [facility] 2019-12-13 00:00:00 2019-12-13 00:00:00 Office Visit Ro Lujan Nancy Zuniga Flores, Carlos E [facility] Encounter/[id number] [facility] 2019-12-11 00:00:00 2019-12-11 00:00:00 Office Visit Ro Lujan Nancy Campbell, Mary N [facility] Encounter/[id number] [facility] 2019-11-30 00:00:00 2019-11-30 00:00:00 Office Visit Ro Barfield [facility] Encounter/[id number] [facility] 2019-11-05 00:00:00 2019-11-05 00:00:00 Office Visit Ro Lujan Marlin Romero, Jose E [facility] Encounter/[id number] [facility] 2019-11-02 00:00:00 2019-11-02 00:00:00 Office Visit Talia Ramirez Mary N [facility] Encounter/[id number] [facility] 2019-10-19 00:00:00 2019-10-19 00:00:00 Office Visit Ro Barfield [facility] Encounter/[id number] [facility] 2019-09-06 00:00:00 2019-09-06 00:00:00 Office Visit Lico, Ro [facility] Encounter/[id number] [facility] 2019-08-13 00:00:00 2019-08-13 00:00:00 Office Visit Flavio frankel, Patricia Morrow Mary N [id number] [facility]-08-[facility]:00:00 2019-08-09 00:00:00 Office Visit Ro Barfield [facility] Encounter/[id number] [facility] 2019-07-11 00:00:00 2019-07-11 00:00:00 Office Visit Lico, Ro [facility] Encounter/[id number] [facility] 2019-07-11 00:00:00 2019-07-11 00:00:00 Office Visit Ro Barfield [facility] Encounter/[id number] [facility] 2019-06-11 10:02:34 2019-06-11 11:11:41 Office Visit Brendan Gomez [facility] [id number] 2019-06-07 00:00:00 2019-06-07 00:00:00 Office Visit Ro Barfield [facility] Encounter/[id number] [facility] 2019-06-07 00:00:00 2019-06-07 00:00:00 Office Visit Ro Lujan Nancy Guerrero, Jennifer [facility] Encounter/[id number] [facility] 2019-05-11 11:06:39 2019-05-11 12:05:30 Office Visit Zoya Mcfadden [facility] [id number] 2019-05-09 13:23:34 2019-05-09 15:08:11 Office Visit Hemalatha Tellez [facility] [id number] 2019-04-13 00:00:00 2019-04-13 00:00:00 Office Visit Lico Ro [facility] Encounter/[id number] [facility] 2019-04-13 00:00:00 2019-04-13 00:00:00 Office Visit Ro Lujan Maritza [facility] Encounter/[id number] [facility] 2019-03-15 00:00:00 2019-03-15 00:00:00 Office Visit Ro Barfield [facility] Encounter/[id number] [facility] 2019-03-15 00:00:00 2019-03-15 00:00:00 Office Visit Ro Lujan Nancy [facility] Encounter/[id number] [facility] 2019-02-22 00:00:00 2019-02-22 00:00:00 Office Visit Patricia Landa, Clarita Wells, Stephanie Caraballo, Jennifer [facility] Encounter/[id number] [facility] 2019-02-21 00:00:00 2019-02-21 00:00:00 Office Visit Ro Lujan Nancy Wehmeyer [facility],, aJleesa [facility] Encounter/[id number] [facility] 2019-02-20 00:00:00 2019-02-20 00:00:00 Office Visit Ro Barfield [facility] Encounter/[id number] [facility] 2019-02-08 00:00:00 2019-02-08 00:00:00 Office Visit Ro Lujan Nancy [facility] Encounter/[id number] [facility] 2019-02-08 00:00:00 2019-02-08 00:00:00 Office Visit Ro Barfield [facility] Encounter/[id number] [facility] 2019-02-08 00:00:00 2019-02-08 00:00:00 Office Visit Ro Lujan Nancy [facility] Encounter/[id number] [facility] 2019-01-22 00:00:00 2019-01-22 00:00:00 Office Visit Ro Lujan Nancy Torres, Daniela G [facility] Encounter/[id number] [facility] 2019-01-11 00:00:00 2019-01-11 00:00:00 Office Visit Ro Barfield [facility] Encounter/[id number] [facility] 2019-01-11 00:00:00 2019-01-11 00:00:00 Office Visit Ro Barfield [facility] Encounter/[id number] [facility] 2019-01-11 00:00:00 2019-01-11 00:00:00 Office Visit Ro Barfield [facility] Encounter/[id number] [facility] 2019-01-11 00:00:00 2019-01-11 00:00:00 Office Visit Ro Lujan Nancy [facility] Encounter/[id number] [facility] 2018-12-30 00:00:00 2018-12-30 00:00:00 Office Visit Ro Barfield [facility] Encounter/[id number] [facility] 2018-12-30 00:00:00 2018-12-30 00:00:00 Office Visit Ro Lujan Maritza [facility] Encounter/[id number] [facility] 2018-12-22 09:07:16 2018-12-22 09:37:16 Office Visit Jeanna Ma [facility] [id number] 2018-11-22 09:47:06 2018-11-22 10:17:06 Office Visit Jeanna Ma [facility] [id number] 2018-11-06 13:50:59 2018-11-06 14:10:59 Office Visit Hemalatha Tellez [facility] [id number] 2018-10-27 14:49:26 2018-10-27 15:19:26 Office Visit Jeanna Ma [facility] [id number] 2018-07-12 00:00:00 2018-07-12 00:00:00 Office Visit Remedioscharles Jo-Ann Carranza [facility] Encounter/[id number] [facility] [employer] 2017-01-21 00:00:00 2017-01-21 00:00:00 Outpatient [facility] [id number] [facility] 2016-12-17 00:00:00 2016-12-17 00:00:00 Outpatient [facility] [id number] [facility] Results Test Description Test Time Test Comments Results Result Comments Source CT, SOFT TISSUE NECK, WITH IV CONTRAST 2019-12-14 10:30:00 R eferring: Dr. Joleen Chicas FINAL REPORT Exam ination:CT, SOFT TISSUE NECK, WITH IV CONTRAST History: Hoarseness; throat pain. Dysphagia.Comparison studies: None Technique: Axial images from the skull base to the thoracic inletCoronal and sagittal reformatted images.Dose modulation, iterative reconstruction, and/or weight based adjustment of the mA/kV was utilized to reduce the radiation dose to as low as reasonably achievable. Intravenous contrast: 75mL of Isovue 300. Findings: Soft tissues:No abnormalities. Aerodigestive tract: No abnormality. Lymph nodes:No radiographically significant adenopathy. Vessels: Arteries and veins are patent. Thyroid gland: Normal in size and homogeneous. Submandibular glands:Normal in size and homogeneous. Parotid glands:Normal in size and homogeneous. Orbits: No abnormalities.Paranasal sinuses: Chronic right maxillary sinusitis. Scattered inflammatory mucosal thickening of the bilateral ethmoid air cells. Mild inflammatory mucosal thickening of the bilateral inferior frontal and anterior bilateral sphenoid sinuses. 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 Cervical spine: No disc bulge or herniation or foraminal or canal stenosis. Visualized lung apices:No abnormalities. IMPRESSION: No abnormality of the pharynx or larynx. Signed: Ashley Eng Verified Date/Time: 12/14/2019 10:30:10 Reading Location: [employer] Reading Room [address] [place] [address] neck soft tissue with IV contrast 2019-12-14 10:30:00 Interface, External Ris In - 12/14/2019 10:32 AM CDTFINAL REPORT Examination:CT, SOFT TISSUE NECK, WITH IV CONTRAST History: Hoarseness; throat pain. Dysphagia.Comparison studies: None Technique: Axial images from the skull base to the thoracic inletCoronal and sagittal reformatted images.Dose modulation, iterative reconstruction, and/or weight based adjustment of the mA/kV was utilized to reduce the radiation dose to as low as reasonably achievable. Intravenous contrast: 75mL of Isovue 300. Findings: Soft tissues:No abnormalities. Aerodigestive tract: No abnormality. Lymph nodes:No radiographically significant adenopathy. Vessels: Arteries and veins are patent. Thyroid gland: Normal in size and homogeneous. Submandibular glands:Normal in size and homogeneous. Parotid glands:Normal in size and homogeneous. Orbits: No abnormalities.Paranasal sinuses: Chronic right maxillary sinusitis. Scattered inflammatory mucosal thickening of the bilateral ethmoid air cells. Mild inflamm atory mucosal thickening of the bilateral inferior frontal and anterior bilateral sphenoid sinuses. 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 Cervical spine: No disc bulge or herniation or foraminal or canal stenosis. Visualized lung apices:No abnormalities. IMPRESSION: No abnormality of the pharynx or larynx. Signed: Ashley Eng Verified Date/Time: 12/14/2019 10:30:10 Reading Location: [employer] Reading Room [facility] B0.[address] [facility] [address], ABDOMEN 2019-12-13 11:32:00 Referring: Dr. Joleen gonzales FINAL REPORT CT of the abdomen with [...] portal vein and SMV. Signed: Adrian Gamez Verified Date/Time: 12/13/2019 11:32:42 Reading Location: [address] Ortho Consult Reading Room abdomen/pelvis without & with IV contrast 2019-12-13 11:32:00 Interface, External Ris In - 12/13/2019 3:[address] of the abdomen with and without contrast, CT of chest and pelvis with contrast Clinical History: Abdominal pain, unspecified abdominal location Technique: CT of the abdomen is performed without IV contrast, followed by CT of chest, abdomen and pelvis performed with intravenous contrast administration and witho ut oral contrast administration. This exam was performed [...] effusion. The central airways are patent, no significa nt bronchiectasis, or bronchial wall thickening. Liver is [...] portal vein and SMV. Signed: Adrian Gamez MDR[employer] Verified Date/Time: 12/13/2019 11:32:42 Reading Location: [facility] B1 [id number] Ortho Consult Reading Room [facility] POC-Creatinine 2019-12-13 10:39:00 Test Item POC-Creatinine (test code = 1859) 0.6 mg/dL 0.6-1.3 : TESTED AT [address] [address]: Photographic Reproduction Technician/Core Filer ID = [id number] for CLARITA LIRIANO POC-EGFR (test code = 1860) 105 mL/min/1.73M2 [id number] 10:39:00* Test Item Value Reference Range Interpretation Comments POC-CREATININE (CONI) (test code = 1859) 0.6 mg/dL 0.6-1.3 : TESTED AT [facility] [address] [facility] [address], [place] [address]: Photographic Reproduction Technician/Core Filer ID = [id number] for CLARITA LIRIANO POC-EGFR (CONI) (test code = 1860) 105 mL/min/1.73M2 CBC W/AUTO [id number] 16:08:00* Test Item Value Reference Range Interpretation Comments WHITE BLOOD CELL (test code = WBC) 2.3 K/mm3 4.5-12.5 L RED BLOOD CELL (test code = RBC) 4.21 mill/mm3 3.7-5.2 N HEMOGLOBIN (test code = HGB) 14.2 gram/dL 11.5-15.5 N HEMATOCRIT (test code = HCT) 40.0 % 36.0-46.0 N MEAN CELL VOLUME (test code = MCV) 95.0 fL 80-98 N MEAN CELL HGB (test code = MCH) 33.7 picogram 27.0-33.0 H MEAN CELL HGB CONCETRATION (test code = MCHC) 35.5 gram/dL 33.0-36. 0 N RED CELL DISTRIBUTION WIDTH (test code = RDW) 12.9 % 11.6-16. 2 N RED CELL DISTRIBUTION WIDTH SD (test code = RDW-SD) 44.4 fL 37 .0-51.0 N PLATELET COUNT (test code = PLT) 46 K/mm3 150-450 LL MEAN PLATELET VOLUME (test code = MPV) 11.3 fL 6.7-11.0 H NEUTROPHIL % (test code = NT%) 55.4 % 39.0-69.0 N IMMATURE GRANULOCYTE % (test code = IG%) 0.4 % 0.0-5.0 N LYMPHOCYTE % (test code = LY%) 31.2 % 25.0-55.0 N MONOCYTE % (test code = MO%) 7.8 % 0.0-10.0 N EOSINOPHIL % (test code = EO%) 3.9 % 0.0-5.0 N BASOPHIL % (test code = BA%) 1.3 % 0.0-1.0 H NUCLEATED RBC % (test code = NRBC%) 0.0 % 0-0 N NEUTROPHIL # (test code = NT#) 1.28 K/mm3 1.8-7.7 L IMMATURE GRANULOCYTE # (test code = IG#) 0.01 x10 3/uL 0-0.03 N LYMPHOCYTE # (test code = LY#) 0.72 K/mm3 1.0-5.0 L MONOCYTE # (test code = MO#) 0.18 K/mm3 0-0.8 N EOSINOPHIL # (test code = EO#) 0.09 K/mm3 0.0-0.5 N BASOPHIL # (test code = BA#) 0.03 K/mm3 0.0-0.2 N NUCLEATED RBC # (test code = NRBC#) 0.00 K/mm3 0.0-0.1 N MANUAL DIFF REQUIRED (test code = MDIFF) NO, ONLY SCAN NEEDED DIFFERENTIAL [id number] 16:08:00* Test Item Value Reference Range Interpretation Comments STAIN ACCEPTABILITY (test code = STN ACCEPTABLE) STAIN ACCEPTABLE MORPHOLOGY COMMENT (test code = MOC) NORMAL PLATELET ESTIMATE (test code = PLTEST) DECREASED PLATELET MORPHOLOGY (test code = PLTMORPH) NORMAL CBC W/AUTO [id number] 14:56:00* Test Item Value Reference Range Interpretation Comments WHITE BLOOD CELL (test code = WBC) 2.3 K/mm3 4.5-12.5 L RED BLOOD CELL (test code = RBC) 4.21 mill/mm3 3.7-5.2 N HEMOGLOBIN (test code = HGB) 14.2 gram/dL 11.5-15.5 N HEMATOCRIT (test code = HCT) 40.0 % 36.0-46.0 N MEAN CELL VOLUME (test code = MCV) 95.0 fL 80-98 N MEAN CELL HGB (test code = MCH) 33.7 picogram 27.0-33.0 H MEAN CELL HGB CONCETRATION (test code = MCHC) 35.5 gram/dL 33.0-36. 0 N RED CELL DISTRIBUTION WIDTH (test code = RDW) 12.9 % 11.6-16. 2 N RED CELL DISTRIBUTION WIDTH SD (test code = RDW-SD) 44.4 fL 37 .0-51.0 N PLATELET COUNT (test code = PLT) 46 K/mm3 150-450 LL MEAN PLATELET VOLUME (test code = MPV) 11.3 fL 6.7-11.0 H NEUTROPHIL % (test code = NT%) 55.4 % 39.0-69.0 N IMMATURE GRANULOCYTE % (test code = IG%) 0.4 % 0.0-5.0 N LYMPHOCYTE % (test code = LY%) 31.2 % 25.0-55.0 N MONOCYTE % (test code = MO%) 7.8 % 0.0-10.0 N EOSINOPHIL % (test code = EO%) 3.9 % 0.0-5.0 N BASOPHIL % (test code = BA%) 1.3 % 0.0-1.0 H NUCLEATED RBC % (test code = NRBC%) 0.0 % 0-0 N NEUTROPHIL # (test code = NT#) 1.28 K/mm3 1.8-7.7 L IMMATURE GRANULOCYTE # (test code = IG#) 0.01 x10 3/uL 0-0.03 N LYMPHOCYTE # (test code = LY#) 0.72 K/mm3 1.0-5.0 L MONOCYTE # (test code = MO#) 0.18 K/mm3 0-0.8 N EOSINOPHIL # (test code = EO#) 0.09 K/mm3 0.0-0.5 N BASOPHIL # (test code = BA#) 0.03 K/mm3 0.0-0.2 N NUCLEATED RBC # (test code = NRBC#) 0.00 K/mm3 0.0-0.1 N MANUAL DIFF REQUIRED (test code = MDIFF) NO, ONLY SCAN NEEDED DIFFERENTIAL [id number] 14:56:00* Test Item Value Reference Range Interpretation Comments STAIN ACCEPTABILITY (test code = STN ACCEPTABLE) MORPHOLOGY COMMENT (test code = MOC) PLATELET ESTIMATE (test code = PLTEST) PLATELET MORPHOLOGY (test code = PLTMORPH) CBC W/AUTO [id number] 14:53:00* Test Item Value Reference Range Interpretation Comments WHITE BLOOD CELL (test code = WBC) 2.3 K/mm3 4.5-12.5 L RED BLOOD CELL (test code = RBC) 4.21 mill/mm3 3.7-5.2 N HEMOGLOBIN (test code = HGB) 14.2 gram/dL 11.5-15.5 N HEMATOCRIT (test code = HCT) 40.0 % 36.0-46.0 N MEAN CELL VOLUME (test code = MCV) 95.0 fL 80-98 N MEAN CELL HGB (test code = MCH) 33.7 picogram 27.0-33.0 H MEAN CELL HGB CONCETRATION (test code = MCHC) 35.5 gram/dL 33.0-36. 0 N RED CELL DISTRIBUTION WIDTH (test code = RDW) 12.9 % 11.6-16. 2 N RED CELL DISTRIBUTION WIDTH SD (test code = RDW-SD) 44.4 fL 37 .0-51.0 N PLATELET COUNT (test code = PLT) 46 K/mm3 150-450 LL MEAN PLATELET VOLUME (test code = MPV) 11.3 fL 6.7-11.0 H NEUTROPHIL % (test code = NT%) 55.4 % 39.0-69.0 N IMMATURE GRANULOCYTE % (test code = IG%) 0.4 % 0.0-5.0 N LYMPHOCYTE % (test code = LY%) 31.2 % 25.0-55.0 N MONOCYTE % (test code = MO%) 7.8 % 0.0-10.0 N EOSINOPHIL % (test code = EO%) 3.9 % 0.0-5.0 N BASOPHIL % (test code = BA%) 1.3 % 0.0-1.0 H NUCLEATED RBC % (test code = NRBC%) 0.0 % 0-0 N NEUTROPHIL # (test code = NT#) 1.28 K/mm3 1.8-7.7 L IMMATURE GRANULOCYTE # (test code = IG#) 0.01 x10 3/uL 0-0.03 N LYMPHOCYTE # (test code = LY#) 0.72 K/mm3 1.0-5.0 L MONOCYTE # (test code = MO#) 0.18 K/mm3 0-0.8 N EOSINOPHIL # (test code = EO#) 0.09 K/mm3 0.0-0.5 N BASOPHIL # (test code = BA#) 0.03 K/mm3 0.0-0.2 N NUCLEATED RBC # (test code = NRBC#) 0.00 K/mm3 0.0-0.1 N MANUAL DIFF REQUIRED (test code = MDIFF) NO, ONLY SCAN NEEDED DIFFERENTIAL [id number] 14:53:00* Test Item Value Reference Range Interpretation Comments STAIN ACCEPTABILITY (test code = STN ACCEPTABLE) CABOT RINGS (test code = CAB) MORPHOLOGY COMMENT (test code = MOC) PLATELET ESTIMATE (test code = PLTEST) PLATELET MORPHOLOGY (test code = PLTMORPH) CBC W/AUTO [id number] 14:53:00* Test Item Value Reference Range Interpretation Comments WHITE BLOOD CELL (test code = WBC) 2.3 K/mm3 4.5-12.5 L RED BLOOD CELL (test code = RBC) 4.21 mill/mm3 3.7-5.2 N HEMOGLOBIN (test code = HGB) 14.2 gram/dL 11.5-15.5 N HEMATOCRIT (test code = HCT) 40.0 % 36.0-46.0 N MEAN CELL VOLUME (test code = MCV) 95.0 fL 80-98 N MEAN CELL HGB (test code = MCH) 33.7 picogram 27.0-33.0 H MEAN CELL HGB CONCETRATION (test code = MCHC) 35.5 gram/dL 33.0-36. 0 N RED CELL DISTRIBUTION WIDTH (test code = RDW) 12.9 % 11.6-16. 2 N RED CELL DISTRIBUTION WIDTH SD (test code = RDW-SD) 44.4 fL 37 .0-51.0 N PLATELET COUNT (test code = PLT) 46 K/mm3 150-450 LL MEAN PLATELET VOLUME (test code = MPV) 11.3 fL 6.7-11.0 H NEUTROPHIL % (test code = NT%) 55.4 % 39.0-69.0 N IMMATURE GRANULOCYTE % (test code = IG%) 0.4 % 0.0-5.0 N LYMPHOCYTE % (test code = LY%) 31.2 % 25.0-55.0 N MONOCYTE % (test code = MO%) 7.8 % 0.0-10.0 N EOSINOPHIL % (test code = EO%) 3.9 % 0.0-5.0 N BASOPHIL % (test code = BA%) 1.3 % 0.0-1.0 H NUCLEATED RBC % (test code = NRBC%) 0.0 % 0-0 N NEUTROPHIL # (test code = NT#) 1.28 K/mm3 1.8-7.7 L IMMATURE GRANULOCYTE # (test code = IG#) 0.01 x10 3/uL 0-0.03 N LYMPHOCYTE # (test code = LY#) 0.72 K/mm3 1.0-5.0 L MONOCYTE # (test code = MO#) 0.18 K/mm3 0-0.8 N EOSINOPHIL # (test code = EO#) 0.09 K/mm3 0.0-0.5 N BASOPHIL # (test code = BA#) 0.03 K/mm3 0.0-0.2 N NUCLEATED RBC # (test code = NRBC#) 0.00 K/mm3 0.0-0.1 N MANUAL DIFF REQUIRED (test code = MDIFF) NO, ONLY SCAN NEEDED DIFFERENTIAL [id number] 14:53:00* Test Item Value Reference Range Interpretation Comments STAIN ACCEPTABILITY (test code = STN ACCEPTABLE) MORPHOLOGY COMMENT (test code = MOC) PLATELET ESTIMATE (test code = PLTEST) PLATELET MORPHOLOGY (test code = PLTMORPH) CBC W/AUTO [id number] 14:53:00* Test Item Value Reference Range Interpretation Comments WHITE BLOOD CELL (test code = WBC) 2.3 K/mm3 4.5-12.5 L RED BLOOD CELL (test code = RBC) 4.21 mill/mm3 3.7-5.2 N HEMOGLOBIN (test code = HGB) 14.2 gram/dL 11.5-15.5 N HEMATOCRIT (test code = HCT) 40.0 % 36.0-46.0 N MEAN CELL VOLUME (test code = MCV) 95.0 fL 80-98 N MEAN CELL HGB (test code = MCH) 33.7 picogram 27.0-33.0 H MEAN CELL HGB CONCETRATION (test code = MCHC) 35.5 gram/dL 33.0-36. 0 N RED CELL DISTRIBUTION WIDTH (test code = RDW) 12.9 % 11.6-16. 2 N RED CELL DISTRIBUTION WIDTH SD (test code = RDW-SD) 44.4 fL 37 .0-51.0 N PLATELET COUNT (test code = PLT) 46 K/mm3 150-450 LL MEAN PLATELET VOLUME (test code = MPV) 11.3 fL 6.7-11.0 H NEUTROPHIL % (test code = NT%) 55.4 % 39.0-69.0 N IMMATURE GRANULOCYTE % (test code = IG%) 0.4 % 0.0-5.0 N LYMPHOCYTE % (test code = LY%) 31.2 % 25.0-55.0 N MONOCYTE % (test code = MO%) 7.8 % 0.0-10.0 N EOSINOPHIL % (test code = EO%) 3.9 % 0.0-5.0 N BASOPHIL % (test code = BA%) 1.3 % 0.0-1.0 H NUCLEATED RBC % (test code = NRBC%) 0.0 % 0-0 N NEUTROPHIL # (test code = NT#) 1.28 K/mm3 1.8-7.7 L IMMATURE GRANULOCYTE # (test code = IG#) 0.01 x10 3/uL 0-0.03 N LYMPHOCYTE # (test code = LY#) 0.72 K/mm3 1.0-5.0 L MONOCYTE # (test code = MO#) 0.18 K/mm3 0-0.8 N EOSINOPHIL # (test code = EO#) 0.09 K/mm3 0.0-0.5 N BASOPHIL # (test code = BA#) 0.03 K/mm3 0.0-0.2 N NUCLEATED RBC # (test code = NRBC#) 0.00 K/mm3 0.0-0.1 N MANUAL DIFF REQUIRED (test code = MDIFF) NO, ONLY SCAN NEEDED DIFFERENTIAL [id number] 14:53:00* Test Item Value Reference Range Interpretation Comments STAIN ACCEPTABILITY (test code = STN ACCEPTABLE) CABOT RINGS (test code = CAB) MORPHOLOGY COMMENT (test code = MOC) PLATELET ESTIMATE (test code = PLTEST) PLATELET MORPHOLOGY (test code = PLTMORPH) BASIC METABOLIC [id number] 13:53:00* Test Item Value Reference Range Interpretation Comments SODIUM (test code = NA) 139 mmol/L 136-145 N POTASSIUM (test code = K) 3.8 mmol/L 3.5-5.1 N CHLORIDE (test code = CL) 108.0 mmol/L 98-107 H CARBON DIOXIDE (test code = CO2) 26.0 mmol/L 21-32 N ANION GAP (test code = GAP) 8.8 10-20 L GLUCOSE (test code = GLU) 83 mg/dL 74-106 N BLOOD UREA NITROGEN (test code = BUN) 14 mg/dL 7-18 N GLOMERULAR FILTRATION RATE (test code = GFR) > 60 mL/min >=60 Estimated GFR by using Modified MDRD formula.Chronic kidney disease is defined as either kidney damageor GFR <60 mL/min/1.73 m2 for >3 months. CREATININE (test code = CREAT) 0.60 mg/dL 0.55-1.02 N Note change in reference range due to change in reagent. BUN/CREATININE RATIO (test code = BUN/CREA) 23.3 10-20 H CALCIUM (test code = CA) 9.0 mg/dL 8.5-10.1 N PROTHROMBIN [id number] 13:50:00* Test Item Value Reference Range Interpretation Comments PROTHROMBIN TIME PATIENT (test code = PTP) 13.2 seconds 9.0-14.0 N INTERNATIONAL NORMAL RATIO (test code = INR) 1.1 0.8-1.2 N The therapeutic range for oral anticoagulant therapy formost indications is an international normalized ratio (INR)of between 2.0 and 3.0. The recommended therapeutic INRrange for various clinical situations is listed below: Clinical Situation INR range Pulmonary e mbolism treatment (2.0-3.0)Venous thrombosis treatmentVenous thrombosis prophylaxis (high risk surgery)Prevention of systemic embolism from: Acute myocardial infarction Valvular heart disease Atrial fibrillation Mechanical prosthetic heart valves (2.5-3.5) IS PATIENT ON ANTICOAGULANTS? N- US ABDOMEN [id number] 15:54:00 Name: CASI CHANDRA [facility] : 1965 Age/S: 54 / F [address] [facility] Unit #: [id number] Loc: [facility] [address] Phys: Jared Mora MD Acct: [id number] Di s Date: Status: REG CLI PHONE #: [phone] Exam Date: 08/17/2019 1315 FAX #: Reason: ABD PAIN EXAMS: CPT CODE: [id number] US ABDOMEN CO MPLETE [id number] REASON FOR EXAM: ABD PAIN EXAM ORDER DATE: 08/17/2019 12:36 PM Orderin g: Evangelist Mora MD Attending:Evangelist Mora MD Location:[facility] PROCEDURE: - US ABDOMEN COMPLETE FINDINGS: The liver is mildly echogenic and nodular in contour. There is no evidence of focal mass identified. The pancreas is obscured by bowel gas. The right kidney measures 11 x 5.6 cm. The left kidney cameron sures 11.1 x 3.7 cm. There is no evidence of hydronephrosis. There is no evidence of nephrolithiasis. There is no evidence of renal mass. The splee n measures 21.7 cm. The gallbladder is unremarkable without evidence of gall stone. No evidence of gallbladder wall thickening or elysia cholecystic fluid. The common bile duct measures 0.3 cm. Th ere is no evidence of ascites. The aorta and IVC are within normal limits. IMPRESSION: Cirrhosis of the liver and portal hypertension. Se marie splenomegaly. Sluggish flow to the portal vein cannot exclude hepatofugal flow Electronically Signed by Mati Madera on 2019 at 1554 Reported and signed by: Arnaldo Madera M.D. CC: Evangelist Mora MD Technologist: BRIANNA CHAUDHARI RT(R),RDMS [facility] [place] Date/Time: 08/17/2019 (1554) t.[email or web address] Orig Print D/T: S: 08/17/2019 (0554) Probe: PAGE 1 Signed Report tricyclic antidrepressants, [id number] 09:20:45* Test Item Value Reference Range Interpretation Comments tricyclic antidrepressants, urine (test code = 7393) Negative [facility] Healthpropoxyphene screen, [id number] 09:20:45* Test Item Value Reference Range Interpretation Comments propoxyphene screen, urine (test code = 67221) Negative [facility], [id number] 09:20:45* Test Item Value Reference Range Interpretation Comments phencyclidine screen, urine (test code = 3936-2) Negative [facility] HealthOxycodone urine [id number] 09:20:45* Test Item Value Reference Range Interpretation Comments Oxycodone urine screening (test code = 912195) Negative [facility] Healthopiates, urine, [id number] 09:20:45* Test Item Value Reference Range Interpretation Comments opiates, urine, semiquantitative (test code = 3879-4) Negative [facility], [id number] 09:20:45* Test Item Value Reference Range Interpretation Comments morphine drug screen, urine (test code = 68791) Negative [facility] HealthEcstasy (MDMA) Screen, [id number] 09:20:45* Test Item Value Reference Range Interpretation Comments Ecstasy (MDMA) Screen, urine (test code = 64283) Negative [facility] Healthmethamphetamine screen, [id number] 09:20:45* Test Item Value Reference Range Interpretation Comments methamphetamine screen, urine (test code = 71279) Negative [facility]Methadone screen, [id number] 09:20:45* Test Item Value Reference Range Interpretation Comments Methadone screen, urine (test code = 57769-3) Negative [facility]cannabinoid screen, [id number] 09:20:45* Test Item Value Reference Range Interpretation Comments cannabinoid screen, urine (test code = 3426-4) Positive [facility] Healthcocaine, [id number] 09:20:45* Test Item Value Reference Range Interpretation Comments cocaine, urine (test code = 3292) Negative [facility]odiazepine screen, [id number] 09:20:45* Test Item Value Reference Range Interpretation Comments benzodiazepine screen, urine (test code = 3390-2) Positive [facility]barbiturates screen, [id number] 09:20:45* Test Item Value Reference Range Interpretation Comments barbiturates screen, urine (test code = 2460) Negative [facility] Healthamphetamine screen, [id number] 09:20:45* Test Item Value Reference Range Interpretation Comments amphetamine screen, urine (test code = 3349-8) Negative [facility]repress[facility], [id number] 08:17:01* Test Item Value Reference Range Interpretation Comments tricyclic antidrepressants, urine (test code = 7393) Negative [facility]prop[facility]hene screen, [id number] 08:17:01* Test Item Value Reference Range Interpretation Comments propoxyphene screen, urine (test code = 59797) Negative [facility]phencyclidine screen, [id number] 08:17:01* Test Item Value Reference Range Interpretation Comments phencyclidine screen, urine (test code = 3936-2) Negative [facility] HealthOxycodone urine [id number] 08:17:01* Test Item Value Reference Range Interpretation Comments Oxycodone urine screening (test code = 994998) Negative [facility] Healthopiates, urine, [id number] 08:17:01* Test Item Value Reference Range Interpretation Comments opiates, urine, semiquantitative (test code = 3879-4) Negative [facility]morphine drug screen, [id number] 08:17:01* Test Item Value Reference Range Interpretation Comments morphine drug screen, urine (test code = 35550) Negative [facility] HealthEcstasy (MDMA) Screen, [id number] 08:17:01* Test Item Value Reference Range Interpretation Comments Ecstasy (MDMA) Screen, urine (test code = 75787) Negative [facility] Healthmethamphetamine screen, [id number] 08:17:01* Test Item Value Reference Range Interpretation Comments methamphetamine screen, urine (test code = 77710) [facility], [id number] 08:17:01* Test Item Value Reference Range Interpretation Comments Methadone screen, urine (test code = 32903-1) Negative [facility]cannabinoid screen, [id number] 08:17:01* Test Item Value Reference Range Interpretation Comments cannabinoid screen, urine (test code = 3426-4) Positive [facility] Healthcocaine, [id number] 08:17:01* Test Item Value Reference Range Interpretation Comments cocaine, urine (test code = 3292) Negative [facility]benzodiazepine screen, [id number] 08:17:01* Test Item Value Reference Range Interpretation Comments benzodiazepine screen, urine (test code = 3390-2) Positive [facility] Healthbarbiturates screen, [id number] 08:17:01* Test Item Value Reference Range Interpretation Comments barbiturates screen, urine (test code = 2460) Negative [facility] Healthamphetamine screen, [id number] 08:17:01* Test Item Value Reference Range Interpretation Comments amphetamine screen, urine (test code = 3349-8) Negative [facility] HealthCBC W/MANUAL [id number] 10:48:00* Test Item Value Reference Range Interpretation Comments WHITE BLOOD CELL (test code = WBC) 1.6 K/mm3 4.5-12.5 L RESULT VERIFIED BY REPEAT ANALYSISHas "Path Review" been performed on patient's currentadmission? NOIf yes, please insert path review specimen here NO If not, please order "Path Review" for the followingcriteria:1/ WBC count over 40,000/mm3 or below 2,000/mm32/ Platelet counts over 1,000,000/mm3, or below 10,000/mm3, or with abnormal morphology.3/ Abnormal red cell morphology or inclusions which are severe (> 3+) , widespread, or difficult to classify.4/ Abnormal white blood cell morphology: Blasts present in peripheral blood of any patient as a new finding. Abnormal cells suspected of being blasts. Patients with large numbers of immature cells in peripheral blood. Unusual cells or cells not easily classified in peripheral blood.5/ Any smear in which the technologist is uncertain of the classification or the disease. RED BLOOD CELL (test code = RBC) 3.87 mill/mm3 3.7-5.2 N HEMOGLOBIN (test code = HGB) 13.2 gram/dL 11.5-15.5 N HEMATOCRIT (test code = HCT) 38.9 % 36.0-46.0 N MEAN CELL VOLUME (test code = MCV) 100.5 fL 80-98 H MEAN CELL HGB (test code = MCH) 34.1 picogram 27.0-33.0 H MEAN CELL HGB CONCETRATION (test code = MCHC) 33.9 gram/dL 33.0-36. 0 N RED CELL DISTRIBUTION WIDTH (test code = RDW) 13.5 % 11.6-16. 2 N RED CELL DISTRIBUTION WIDTH SD (test code = RDW-SD) 49.7 fL 37 .0-51.0 N PLATELET COUNT (test code = PLT) 31 K/mm3 150-450 LL Results called to [id number] by V.LAB. 12/01/18 1742Critical results verified and read back by Nurse? Y MEAN PLATELET VOLUME (test code = MPV) 10.3 fL 6.7-11.0 N IMMATURE GRANULOCYTE % (test code = IG%) 0.6 % 0.0-5.0 N NUCLEATED RBC % (test code = NRBC%) 0.0 % 0-0 N NEUTROPHIL # (test code = NT#) 0.94 K/mm3 1.8-7.7 L IMMATURE GRANULOCYTE # (test code = IG#) 0.01 x10 3/uL 0-0.03 N LYMPHOCYTE # (test code = LY#) 0.47 K/mm3 1.0-5.0 L MONOCYTE # (test code = MO#) 0.11 K/mm3 0-0.8 N EOSINOPHIL # (test code = EO#) 0.04 K/mm3 0.0-0.5 N BASOPHIL # (test code = BA#) 0.01 K/mm3 0.0-0.2 N NUCLEATED RBC # (test code = NRBC#) 0.00 K/mm3 0.0-0.1 N MANUAL DIFF REQUIRED (test code = MDIFF) YES STAIN ACCEPTABILITY (test code = STN ACCEPTABLE) STAIN ACCEPTABLE TOTAL CELLS COUNTED (test code = TCC) 115 #CELLS SEGMENTED NEUTROPHILS (test code = SEG) 65.2 % 39-69 N BAND NEUTROPHIL (test code = BAND) 0 % 0-10 N LYMPHOCYTE (test code = LYMPH) 22.6 % 25-55 L REACTIVE LYMPH (test code = RELYMPH) 0 % MONOCYTE (test code = MON) 7.0 % 0-10 N EOSINOPHIL (test code = EOS) 3.5 % 0.0-5.0 N BASOPHIL (test code = BASO) 1.7 % 0-1.0 H METAMYELOCYTE (test code = META) 0 % 0-0 N MYELOCYTE (test code = MYELO) 0 % 0.0-0.0 N PROMYELOCYTE (test code = PROM) 0 % 0-0 N POIKILOCYTOSIS (test code = POIK) 1+ ANISOCYTOSIS (test code = ANISO) 1+ ELLIPTOCYTES (test code = ELL) 1+ PLATELET ESTIMATE (test code = PLTEST) DECREASED PLATELET MORPHOLOGY (test code = PLTMORPH) NORMAL IMMATURE FORMS (test code = IMMAT) 0 % 0-0 N FAMILY MEMBER DOES NOT WANT THE PATIENT TO BE STUCK ARTUR [id number] AWARE V.LAB. 11/30/18 0827 PATHOLOGISTS [id number] 10:48:00* Test Item Value Reference Range Interpretation Comments PATHOLOGISTS FINDINGS (test code = PATH) COMMENTS PATH NOTES Reviewed by Dr Viviana Darby 12/06/2018Leukopenia. Thrombocytopenia.SLIDE REVIEWED BY PATHOLOGIST FAMILY MEMBER DOES NOT WANT THE PATIENT TO BE STUCK ARTUR [id number] AWARE V.LAB 11/30/18 0827 CBC W/MANUAL [id number] 22:25:00* Test Item Value Reference Range Interpretation Comments WHITE BLOOD CELL (test code = WBC) 1.6 K/mm3 4.5-12.5 L RESULT VERIFIED BY REPEAT ANALYSISHas "Path Review" been performed on patient's currentadmission? NOIf yes, please insert path review specimen here NO If not, please order "Path Review" for the followingcriteria:1/ WBC count over 40,000/mm3 or below 2,000/mm32/ Platelet counts over 1,000,000/mm3, or below 10,000/mm3, or with abnormal morphology.3/ Abnormal red cell morphology or inclusions which are severe (> 3+) , widespread, or difficult to classify.4/ Abnormal white blood cell morphology: Blasts present in peripheral blood of any patient as a new finding. Abnormal cells suspected of being blasts. Patients with large numbers of immature cells in peripheral blood. Unusual cells or cells not easily classified in peripheral blood.5/ Any smear in which the technologist is uncertain of the classification or the disease. RED BLOOD CELL (test code = RBC) 3.87 mill/mm3 3.7-5.2 N HEMOGLOBIN (test code = HGB) 13.2 gram/dL 11.5-15.5 N HEMATOCRIT (test code = HCT) 38.9 % 36.0-46.0 N MEAN CELL VOLUME (test code = MCV) 100.5 fL 80-98 H MEAN CELL HGB (test code = MCH) 34.1 picogram 27.0-33.0 H MEAN CELL HGB CONCETRATION (test code = MCHC) 33.9 gram/dL 33.0-36. 0 N RED CELL DISTRIBUTION WIDTH (test code = RDW) 13.5 % 11.6-16. 2 N RED CELL DISTRIBUTION WIDTH SD (test code = RDW-SD) 49.7 fL 37 .0-51.0 N PLATELET COUNT (test code = PLT) 31 K/mm3 150-450 LL Results called to [id number] by [facility] MedicalLAB.LL 12/01/18 1742Critical results verified and read back by Nurse? Y MEAN PLATELET VOLUME (test code = MPV) 10.3 fL 6.7-11.0 N IMMATURE GRANULOCYTE % (test code = IG%) 0.6 % 0.0-5.0 N NUCLEATED RBC % (test code = NRBC%) 0.0 % 0-0 N NEUTROPHIL # (test code = NT#) 0.94 K/mm3 1.8-7.7 L IMMATURE GRANULOCYTE # (test code = IG#) 0.01 x10 3/uL 0-0.03 N LYMPHOCYTE # (test code = LY#) 0.47 K/mm3 1.0-5.0 L MONOCYTE # (test code = MO#) 0.11 K/mm3 0-0.8 N EOSINOPHIL # (test code = EO#) 0.04 K/mm3 0.0-0.5 N BASOPHIL # (test code = BA#) 0.01 K/mm3 0.0-0.2 N NUCLEATED RBC # (test code = NRBC#) 0.00 K/mm3 0.0-0.1 N MANUAL DIFF REQUIRED (test code = MDIFF) YES STAIN ACCEPTABILITY (test code = STN ACCEPTABLE) STAIN ACCEPTABLE TOTAL CELLS COUNTED (test code = TCC) 115 #CELLS SEGMENTED NEUTROPHILS (test code = SEG) 65.2 % 39-69 N BAND NEUTROPHIL (test code = BAND) 0 % 0-10 N LYMPHOCYTE (test code = LYMPH) 22.6 % 25-55 L REACTIVE LYMPH (test code = RELYMPH) 0 % MONOCYTE (test code = MON) 7.0 % 0-10 N EOSINOPHIL (test code = EOS) 3.5 % 0.0-5.0 N BASOPHIL (test code = BASO) 1.7 % 0-1.0 H METAMYELOCYTE (test code = META) 0 % 0-0 N MYELOCYTE (test code = MYELO) 0 % 0.0-0.0 N PROMYELOCYTE (test code = PROM) 0 % 0-0 N POIKILOCYTOSIS (test code = POIK) 1+ ANISOCYTOSIS (test code = ANISO) 1+ ELLIPTOCYTES (test code = ELL) 1+ PLATELET ESTIMATE (test code = PLTEST) DECREASED PLATELET MORPHOLOGY (test code = PLTMORPH) NORMAL IMMATURE FORMS (test code = IMMAT) 0 % 0-0 N FAMILY MEMBER DOES NOT WANT THE PATIENT TO BE STUCK ARTUR [id number] AWARE V.LAB. 11/30/18 0827 PATHOLOGISTS [id number] 22:25:00* Test Item Value Reference Range Interpretation Comments PATHOLOGISTS FINDINGS (test code = PATH) PATH NOTES FAMILY MEMBER DOES NOT WANT THE PATIENT TO BE STUCK ARTUR [id number] AWARE V.LAB. 11/30/18 0827 PROTHROMBIN [id number] 17:59:00* Test Item Value Reference Range Interpretation Comments PROTHROMBIN TIME PATIENT (test code = PTP) 13.8 seconds 9.0-14.0 N INTERNATIONAL NORMAL RATIO (test code = INR) 1.2 0.8-1.2 N The therapeutic range for oral anticoagulant therapy formost indications is an international normalized ratio (INR)of between 2.0 and 3.0. The recommended therapeutic INRrange for various clinical situations is listed below: Clinical Situation INR range Pulmonary e mbolism treatment (2.0-3.0)Venous thrombosis treatmentVenous thrombosis prophylaxis (high risk surgery)Prevention of systemic embolism from: Acute myocardial infarction Valvular heart disease Atrial fibrillation Mechanical prosthetic heart valves (2.5-3.5) FAMILY MEMBER DOES NOT WANT PATIENT TO BE STUCK RN [id number] CRISTA Murray 11/03IS PATIENT ON ANTICOAGULANTS? NTHROMBOPLASTIN TIME [id number] 17:59:00* Test Item Value Reference Range Interpretation Comments THROMBOPLASTIN TIME PARTIAL (test code = PTT) 31.2 seconds 25.0-36. 5 N FAMILY MEMBER DOES NOT WANT PATIENT TO BE STUCK ARTUR [id number] CRISTA Murray 11/03IS PATIENT ON ANTICOAGULANTS? NCBC W/MANUAL [id number] 17:44:00* Test Item Value Reference Range Interpretation Comments WHITE BLOOD CELL (test code = WBC) 1.6 K/mm3 4.5-12.5 L RESULT VERIFIED BY REPEAT ANALYSISHas "Path Review" been performed on patient's currentadmission? NOIf yes, please insert path review specimen here NO If not, please order "Path Review" for the followingcriteria:1/ WBC count over 40,000/mm3 or below 2,000/mm32/ Platelet counts over 1,000,000/mm3, or below 10,000/mm3, or with abnormal morphology.3/ Abnormal red cell morphology or inclusions which are severe (> 3+) , widespread, or difficult to classify.4/ Abnormal white blood cell morphology: Blasts present in peripheral blood of any patient as a new finding. Abnormal cells suspected of being blasts. Patients with large numbers of immature cells in peripheral blood. Unusual cells or cells not easily classified in peripheral blood.5/ Any smear in which the technologist is uncertain of the classification or the disease. RED BLOOD CELL (test code = RBC) 3.87 mill/mm3 3.7-5.2 N HEMOGLOBIN (test code = HGB) 13.2 gram/dL 11.5-15.5 N HEMATOCRIT (test code = HCT) 38.9 % 36.0-46.0 N MEAN CELL VOLUME (test code = MCV) 100.5 fL 80-98 H MEAN CELL HGB (test code = MCH) 34.1 picogram 27.0-33.0 H MEAN CELL HGB CONCETRATION (test code = MCHC) 33.9 gram/dL 33.0-36. 0 N RED CELL DISTRIBUTION WIDTH (test code = RDW) 13.5 % 11.6-16. 2 N RED CELL DISTRIBUTION WIDTH SD (test code = RDW-SD) 49.7 fL 37 .0-51.0 N PLATELET COUNT (test code = PLT) 31 K/mm3 150-450 LL Results called to [id number] by V.LAB. 12/01/18 1742Critical results verified and read back by Nurse? Y MEAN PLATELET VOLUME (test code = MPV) 10.3 fL 6.7-11.0 N IMMATURE GRANULOCYTE % (test code = IG%) 0.6 % 0.0-5.0 N NUCLEATED RBC % (test code = NRBC%) 0.0 % 0-0 N NEUTROPHIL # (test code = NT#) 0.94 K/mm3 1.8-7.7 L IMMATURE GRANULOCYTE # (test code = IG#) 0.01 x10 3/uL 0-0.03 N LYMPHOCYTE # (test code = LY#) 0.47 K/mm3 1.0-5.0 L MONOCYTE # (test code = MO#) 0.11 K/mm3 0-0.8 N EOSINOPHIL # (test code = EO#) 0.04 K/mm3 0.0-0.5 N BASOPHIL # (test code = BA#) 0.01 K/mm3 0.0-0.2 N NUCLEATED RBC # (test code = NRBC#) 0.00 K/mm3 0.0-0.1 N MANUAL DIFF REQUIRED (test code = MDIFF) YES STAIN ACCEPTABILITY (test code = STN ACCEPTABLE) TOTAL CELLS COUNTED (test code = TCC) #CELLS SEGMENTED NEUTROPHILS (test code = SEG) % 39-69 LYMPHOCYTE (test code = LYMPH) % 25-55 MONOCYTE (test code = MON) % 0-10 EOSINOPHIL (test code = EOS) % 0.0-5.0 CABOT RINGS (test code = CAB) MORPHOLOGY COMMENT (test code = MOC) PLATELET ESTIMATE (test code = PLTEST) PLATELET MORPHOLOGY (test code = PLTMORPH) FAMILY MEMBER DOES NOT WANT THE PATIENT TO BE STUCK ARTUR [id number] AWARE V.LAB. 11/30/18 0827 CBC W/MANUAL [id number] 17:44:00* Test Item Value Reference Range Interpretation Comments WHITE BLOOD CELL (test code = WBC) 1.6 K/mm3 4.5-12.5 L RESULT VERIFIED BY REPEAT ANALYSISHas "Path Review" been performed on patient's currentadmission? NOIf yes, please insert path review specimen here NO If not, please order "Path Review" for the followingcriteria:1/ WBC count over 40,000/mm3 or below 2,000/mm32/ Platelet counts over 1,000,000/mm3, or below 10,000/mm3, or with abnormal morphology.3/ Abnormal red cell morphology or inclusions which are severe (> 3+) , widespread, or difficult to classify.4/ Abnormal white blood cell morphology: Blasts present in peripheral blood of any patient as a new finding. Abnormal cells suspected of being blasts. Patients with large numbers of immature cells in peripheral blood. Unusual cells or cells not easily classified in peripheral blood.5/ Any smear in which the technologist is uncertain of the classification or the disease. RED BLOOD CELL (test code = RBC) 3.87 mill/mm3 3.7-5.2 N HEMOGLOBIN (test code = HGB) 13.2 gram/dL 11.5-15.5 N HEMATOCRIT (test code = HCT) 38.9 % 36.0-46.0 N MEAN CELL VOLUME (test code = MCV) 100.5 fL 80-98 H MEAN CELL HGB (test code = MCH) 34.1 picogram 27.0-33.0 H MEAN CELL HGB CONCETRATION (test code = MCHC) 33.9 gram/dL 33.0-36. 0 N RED CELL DISTRIBUTION WIDTH (test code = RDW) 13.5 % 11.6-16. 2 N RED CELL DISTRIBUTION WIDTH SD (test code = RDW-SD) 49.7 fL 37 .0-51.0 N PLATELET COUNT (test code = PLT) 31 K/mm3 150-450 LL Results called to [id number] by [facility].MARIANELA 12/01/18 1742Critical results verified and read back by Nurse? Y MEAN PLATELET VOLUME (test code = MPV) 10.3 fL 6.7-11.0 N IMMATURE GRANULOCYTE % (test code = IG%) 0.6 % 0.0-5.0 N NUCLEATED RBC % (test code = NRBC%) 0.0 % 0-0 N NEUTROPHIL # (test code = NT#) 0.94 K/mm3 1.8-7.7 L IMMATURE GRANULOCYTE # (test code = IG#) 0.01 x10 3/uL 0-0.03 N LYMPHOCYTE # (test code = LY#) 0.47 K/mm3 1.0-5.0 L MONOCYTE # (test code = MO#) 0.11 K/mm3 0-0.8 N EOSINOPHIL # (test code = EO#) 0.04 K/mm3 0.0-0.5 N BASOPHIL # (test code = BA#) 0.01 K/mm3 0.0-0.2 N NUCLEATED RBC # (test code = NRBC#) 0.00 K/mm3 0.0-0.1 N MANUAL DIFF REQUIRED (test code = MDIFF) YES STAIN ACCEPTABILITY (test code = STN ACCEPTABLE) TOTAL CELLS COUNTED (test code = TCC) #CELLS SEGMENTED NEUTROPHILS (test code = SEG) % 39-69 LYMPHOCYTE (test code = LYMPH) % 25-55 MONOCYTE (test code = MON) % 0-10 EOSINOPHIL (test code = EOS) % 0.0-5.0 CABOT RINGS (test code = CAB) MORPHOLOGY COMMENT (test code = MOC) PLATELET ESTIMATE (test code = PLTEST) PLATELET MORPHOLOGY (test code = PLTMORPH) FAMILY MEMBER DOES NOT WANT THE PATIENT TO BE STUCK RN [id number] AWARE V.LAB. 11/30/18 0827 CBC W/MANUAL [id number] 17:44:00* Test Item Value Reference Range Interpretation Comments WHITE BLOOD CELL (test code = WBC) 1.6 K/mm3 4.5-12.5 L RESULT VERIFIED BY REPEAT ANALYSISHas "Path Review" been performed on patient's currentadmission? NOIf yes, please insert path review specimen here NO If not, please order "Path Review" for the followingcriteria:1/ WBC count over 40,000/mm3 or below 2,000/mm32/ Platelet counts over 1,000,000/mm3, or below 10,000/mm3, or with abnormal morphology.3/ Abnormal red cell morphology or inclusions which are severe (> 3+) , widespread, or difficult to classify.4/ Abnormal white blood cell morphology: Blasts present in peripheral blood of any patient as a new finding. Abnormal cells suspected of being blasts. Patients with large numbers of immature cells in peripheral blood. Unusual cells or cells not easily classified in peripheral blood.5/ Any smear in which the technologist is uncertain of the classification or the disease. RED BLOOD CELL (test code = RBC) 3.87 mill/mm3 3.7-5.2 N HEMOGLOBIN (test code = HGB) 13.2 gram/dL 11.5-15.5 N HEMATOCRIT (test code = HCT) 38.9 % 36.0-46.0 N MEAN CELL VOLUME (test code = MCV) 100.5 fL 80-98 H MEAN CELL HGB (test code = MCH) 34.1 picogram 27.0-33.0 H MEAN CELL HGB CONCETRATION (test code = MCHC) 33.9 gram/dL 33.0-36. 0 N RED CELL DISTRIBUTION WIDTH (test code = RDW) 13.5 % 11.6-16. 2 N RED CELL DISTRIBUTION WIDTH SD (test code = RDW-SD) 49.7 fL 37 .0-51.0 N PLATELET COUNT (test code = PLT) 31 K/mm3 150-450 LL Results called to [id number] by V.LAB. 12/01/18 1742Critical results verified and read back by Nurse? Y MEAN PLATELET VOLUME (test code = MPV) 10.3 fL 6.7-11.0 N IMMATURE GRANULOCYTE % (test code = IG%) 0.6 % 0.0-5.0 N NUCLEATED RBC % (test code = NRBC%) 0.0 % 0-0 N NEUTROPHIL # (test code = NT#) 0.94 K/mm3 1.8-7.7 L IMMATURE GRANULOCYTE # (test code = IG#) 0.01 x10 3/uL 0-0.03 N LYMPHOCYTE # (test code = LY#) 0.47 K/mm3 1.0-5.0 L MONOCYTE # (test code = MO#) 0.11 K/mm3 0-0.8 N EOSINOPHIL # (test code = EO#) 0.04 K/mm3 0.0-0.5 N BASOPHIL # (test code = BA#) 0.01 K/mm3 0.0-0.2 N NUCLEATED RBC # (test code = NRBC#) 0.00 K/mm3 0.0-0.1 N MANUAL DIFF REQUIRED (test code = MDIFF) YES STAIN ACCEPTABILITY (test code = STN ACCEPTABLE) TOTAL CELLS COUNTED (test code = TCC) #CELLS SEGMENTED NEUTROPHILS (test code = SEG) % 39-69 LYMPHOCYTE (test code = LYMPH) % 25-55 MONOCYTE (test code = MON) % 0-10 EOSINOPHIL (test code = EOS) % 0.0-5.0 MORPHOLOGY COMMENT (test code = MOC) PLATELET ESTIMATE (test code = PLTEST) PLATELET MORPHOLOGY (test code = PLTMORPH) FAMILY MEMBER DOES NOT WANT THE PATIENT TO BE STUCK ARTUR [id number] AWARE V.LAB. 11/30/18 0827 CBC W/MANUAL [id number] 17:44:00* Test Item Value Reference Range Interpretation Comments WHITE BLOOD CELL (test code = WBC) 1.6 K/mm3 4.5-12.5 L RESULT VERIFIED BY REPEAT ANALYSISHas "Path Review" been performed on patient's currentadmission? NOIf yes, please insert path review specimen here NO If not, please order "Path Review" for the followingcriteria:1/ WBC count over 40,000/mm3 or below 2,000/mm32/ Platelet counts over 1,000,000/mm3, or below 10,000/mm3, or with abnormal morphology.3/ Abnormal red cell morphology or inclusions which are severe (> 3+) , widespread, or difficult to classify.4/ Abnormal white blood cell morphology: Blasts present in peripheral blood of any patient as a new finding. Abnormal cells suspected of being blasts. Patients with large numbers of immature cells in peripheral blood. Unusual cells or cells not easily classified in peripheral blood.5/ Any smear in which the technologist is uncertain of the classification or the disease. RED BLOOD CELL (test code = RBC) 3.87 mill/mm3 3.7-5.2 N HEMOGLOBIN (test code = HGB) 13.2 gram/dL 11.5-15.5 N HEMATOCRIT (test code = HCT) 38.9 % 36.0-46.0 N MEAN CELL VOLUME (test code = MCV) 100.5 fL 80-98 H MEAN CELL HGB (test code = MCH) 34.1 picogram 27.0-33.0 H MEAN CELL HGB CONCETRATION (test code = MCHC) 33.9 gram/dL 33.0-36. 0 N RED CELL DISTRIBUTION WIDTH (test code = RDW) 13.5 % 11.6-16. 2 N RED CELL DISTRIBUTION WIDTH SD (test code = RDW-SD) 49.7 fL 37 .0-51.0 N PLATELET COUNT (test code = PLT) 31 K/mm3 150-450 LL Results called to [id number] by VMalachiLABMalachi 12/01/18 1742Critical results verified and read back by Nurse? Y MEAN PLATELET VOLUME (test code = MPV) 10.3 fL 6.7-11.0 N IMMATURE GRANULOCYTE % (test code = IG%) 0.6 % 0.0-5.0 N NUCLEATED RBC % (test code = NRBC%) 0.0 % 0-0 N NEUTROPHIL # (test code = NT#) 0.94 K/mm3 1.8-7.7 L IMMATURE GRANULOCYTE # (test code = IG#) 0.01 x10 3/uL 0-0.03 N LYMPHOCYTE # (test code = LY#) 0.47 K/mm3 1.0-5.0 L MONOCYTE # (test code = MO#) 0.11 K/mm3 0-0.8 N EOSINOPHIL # (test code = EO#) 0.04 K/mm3 0.0-0.5 N BASOPHIL # (test code = BA#) 0.01 K/mm3 0.0-0.2 N NUCLEATED RBC # (test code = NRBC#) 0.00 K/mm3 0.0-0.1 N MANUAL DIFF REQUIRED (test code = MDIFF) YES STAIN ACCEPTABILITY (test code = STN ACCEPTABLE) TOTAL CELLS COUNTED (test code = TCC) #CELLS SEGMENTED NEUTROPHILS (test code = SEG) % 39-69 LYMPHOCYTE (test code = LYMPH) % 25-55 MONOCYTE (test code = MON) % 0-10 MORPHOLOGY COMMENT (test code = MOC) PLATELET ESTIMATE (test code = PLTEST) PLATELET MORPHOLOGY (test code = PLTMORPH) FAMILY MEMBER DOES NOT WANT THE PATIENT TO BE STUCK RN [id number] AWARE 11/30/18 0827 CBC W/MANUAL [id number] 17:44:00* Test Item Value Reference Range Interpretation Comments WHITE BLOOD CELL (test code = WBC) 1.6 K/mm3 4.5-12.5 L RESULT VERIFIED BY REPEAT ANALYSISHas "Path Review" been performed on patient's currentadmission? NOIf yes, please insert path review specimen here NO If not, please order "Path Review" for the followingcriteria:1/ WBC count over 40,000/mm3 or below 2,000/mm32/ Platelet counts over 1,000,000/mm3, or below 10,000/mm3, or with abnormal morphology.3/ Abnormal red cell morphology or inclusions which are severe (> 3+) , widespread, or difficult to classify.4/ Abnormal white blood cell morphology: Blasts present in peripheral blood of any patient as a new finding. Abnormal cells suspected of being blasts. Patients with large numbers of immature cells in peripheral blood. Unusual cells or cells not easily classified in peripheral blood.5/ Any smear in which the technologist is uncertain of the classification or the disease. RED BLOOD CELL (test code = RBC) 3.87 mill/mm3 3.7-5.2 N HEMOGLOBIN (test code = HGB) 13.2 gram/dL 11.5-15.5 N HEMATOCRIT (test code = HCT) 38.9 % 36.0-46.0 N MEAN CELL VOLUME (test code = MCV) 100.5 fL 80-98 H MEAN CELL HGB (test code = MCH) 34.1 picogram 27.0-33.0 H MEAN CELL HGB CONCETRATION (test code = MCHC) 33.9 gram/dL 33.0-36. 0 N RED CELL DISTRIBUTION WIDTH (test code = RDW) 13.5 % 11.6-16. 2 N RED CELL DISTRIBUTION WIDTH SD (test code = RDW-SD) 49.7 fL 37 .0-51.0 N PLATELET COUNT (test code = PLT) 31 K/mm3 150-450 LL Results called to [id number] by [facility]. 12/01/18 1742Critical results verified and read back by Nurse? Y MEAN PLATELET VOLUME (test code = MPV) 10.3 fL 6.7-11.0 N IMMATURE GRANULOCYTE % (test code = IG%) 0.6 % 0.0-5.0 N NUCLEATED RBC % (test code = NRBC%) 0.0 % 0-0 N NEUTROPHIL # (test code = NT#) 0.94 K/mm3 1.8-7.7 L IMMATURE GRANULOCYTE # (test code = IG#) 0.01 x10 3/uL 0-0.03 N LYMPHOCYTE # (test code = LY#) 0.47 K/mm3 1.0-5.0 L MONOCYTE # (test code = MO#) 0.11 K/mm3 0-0.8 N EOSINOPHIL # (test code = EO#) 0.04 K/mm3 0.0-0.5 N BASOPHIL # (test code = BA#) 0.01 K/mm3 0.0-0.2 N NUCLEATED RBC # (test code = NRBC#) 0.00 K/mm3 0.0-0.1 N MANUAL DIFF REQUIRED (test code = MDIFF) YES STAIN ACCEPTABILITY (test code = STN ACCEPTABLE) TOTAL CELLS COUNTED (test code = TCC) #CELLS SEGMENTED NEUTROPHILS (test code = SEG) % 39-69 LYMPHOCYTE (test code = LYMPH) % 25-55 MONOCYTE (test code = MON) % 0-10 EOSINOPHIL (test code = EOS) % 0.0-5.0 CABOT RINGS (test code = CAB) MORPHOLOGY COMMENT (test code = MOC) PLATELET ESTIMATE (test code = PLTEST) PLATELET MORPHOLOGY (test code = PLTMORPH) FAMILY [facility]BER DOES NOT WANT THE PATIENT TO BE STUCK ARTUR [id number] AWARE [facility]. 11/30/18 0827 COMPREHENSIVE METABOLIC [id number] 17:19:00* Test Item Value Reference Range Interpretation Comments SODIUM (test code = NA) 143 mmol/L 136-145 N POTASSIUM (test code = K) 4.2 mmol/L 3.5-5.1 N CHLORIDE (test code = CL) 108.0 mmol/L 98-107 H CARBON DIOXIDE (test code = CO2) 28.0 mmol/L 21-32 N ANION GAP (test code = GAP) 11.2 10-20 N GLUCOSE (test code = GLU) 102 mg/dL 74-106 N BLOOD UREA NITROGEN (test code = BUN) 12 mg/dL 7-18 N GLOMERULAR FILTRATION RATE (test code = GFR) > 60 mL/min >=60 Estimated GFR by using Modified MDRD formula.Chronic kidney disease is defined as either kidney damageor GFR <60 mL/min/1.73 m2 for >3 months. CREATININE (test code = CREAT) 0.60 mg/dL 0.55-1.02 N Note change in reference range due to change in reagent. BUN/CREATININE RATIO (test code = BUN/CREA) 20.1 10-20 H TOTAL PROTEIN (test code = PROT) 7.4 gram/dL 6.4-8.2 N ALBUMIN (test code = ALB) 3.3 g/dL 3.4-5.0 L GLOBULIN (test code = GLOB) 4.1 gram/dL 2.7-4.2 N ALBUMIN/GLOBULIN RATIO (test code = A/G) 0.8 0.75-1.50 N CALCIUM (test code = CA) 8.4 mg/dL 8.5-10.1 L BILIRUBIN TOTAL (test code = BILT) 1.50 mg/dL 0.0-1.0 H SGOT/AST (test code = AST) 37 IUnit/L 15-37 N SGPT/ALT (test code = ALT) 28 IUnit/L 12-78 N ALKALINE PHOSPHATASE TOTAL (test code = ALKP) 88 IUnit/L 45-117 N Note change in reference range due to change in reagent. FAMILY MEMEBER DOES NOT WANT THE PATIENT TO BE STUCK ARTUR [id number] AWARE V.LAB. 11/30/18824COMMENTS TO DATA KEYER: COLLECT 3 HOURS AFTER PREVIOUS [id number] 17:19:00* Test Item Value Reference Range Interpretation Comments MAGNESIUM (test code = MAG) 1.7 mg/dL 1.8-2.4 L FAMILY MEMEBER DOES NOT WANT THE PATIENT TO BE STUCK ARTUR [id number] AWARE V.LAB. 11/30/18824COMMENTS TO DATA KEYER: COLLECT 3 HOURS AFTER PREVIOUS SAMPLEVITAMIN [id number] 17:19:00* Test Item Value Reference Range Interpretation Comments VITAMIN B12 (test code = VITB12) 623 pg/mL 193-986 N FAMILY MEMEBER DOES NOT WANT THE PATIENT TO BE STUCK ARTUR [id number] AWARE V.LAB. 11/30/18824COMMENTS TO DATA KEYER: COLLECT 3 HOURS AFTER PREVIOUS SAMPLETHYROID STIMULATING [id number] 17:19:00* Test Item Value Reference Range Interpretation Comments THYROID STIMULATING HORMONE (test code = TSH) 0.562 uIU/mL 0.36-3.7 4 N TSH REFERENCE RANGES: EUTHYROID: 0.35 - 4.3 mIU/mL HYPO : > 5.5 mIU/mL HYPER : < 0.35 mIU/mL FAMILY MEMEBER DOES NOT WANT THE PATIENT TO BE STUCK ARTUR [id number] AWARE RomeoLAB 11/30/1825COMMENTS TO DATA KEYER: COLLECT 3 HOURS AFTER PREVIOUS [id number] 17:19:00* Test Item Value Reference Range Interpretation Comments TROPONIN-I (test code = TROPI) <0.015 ng/mL 0-0.045 N FAMILY MEMEBER DOES NOT WANT THE PATIENT TO BE STUCK ARTUR CLINE AWARE 11/30/1825COMMENTS TO DATA KEYER: COLLECT 3 HOURS AFTER PREVIOUS [id number] 16:54:00* Test Item Value Reference Range Interpretation Comments TROPONIN-I (test code = TROPI) <0.015 ng/mL 0-0.045 N FAMILY MEMBER DOES NOT WANT PATIENT TO BE STUCK ARTUR CLINE AWARE 11/0328COMMENTS TO DATA KEYER: COLLECT 3 HOURS AFTER PREVIOUS SAMPLECOMPREHENSIVE METABOLIC [id number] 16:43:00* Test Item Value Reference Range Interpretation Comments SODIUM (test code = NA) 143 mmol/L 136-145 N POTASSIUM (test code = K) 4.2 mmol/L 3.5-5.1 N CHLORIDE (test code = CL) 108.0 mmol/L 98-107 H CARBON DIOXIDE (test code = CO2) mmol/L 21-32 ANION GAP (test code = GAP) 10-20 GLUCOSE (test code = GLU) mg/dL 74-106 BLOOD UREA NITROGEN (test code = BUN) mg/dL 7-18 GLOMERULAR FILTRATION RATE (test code = GFR) mL/min >=60 CREATININE (test code = CREAT) mg/dL 0.55-1.02 BUN/CREATININE RATIO (test code = BUN/CREA) 10-20 TOTAL PROTEIN (test code = PROT) gram/dL 6.4-8.2 ALBUMIN (test code = ALB) g/dL 3.4-5.0 GLOBULIN (test code = GLOB) gram/dL 2.7-4.2 ALBUMIN/GLOBULIN RATIO (test code = A/G) 0.75-1.50 CALCIUM (test code = CA) mg/dL 8.5-10.1 BILIRUBIN TOTAL (test code = BILT) mg/dL 0.0-1.0 SGOT/AST (test code = AST) IUnit/L 15-37 SGPT/ALT (test code = ALT) IUnit/L 12-78 ALKALINE PHOSPHATASE TOTAL (test code = ALKP) IUnit/L 45-117 FAMILY MEMEBER DOES NOT WANT THE PATIENT TO BE STUCK ARTUR [id number] AWARE V.LAB. 11/30/18824COMMENTS TO DATA KEYER: COLLECT 3 HOURS AFTER PREVIOUS [id number] 16:43:00* Test Item Value Reference Range Interpretation Comments MAGNESIUM (test code = MAG) mg/dL 1.8-2.4 FAMILY MEMEBER DOES NOT WANT THE PATIENT TO BE STUCK ARTUR CLINE AWARE V.LAB. 11/30/18824COMMENTS TO DATA KEYER: COLLECT 3 HOURS AFTER PREVIOUS SAMPLEVITAMIN [id number] 16:43:00* Test Item Value Reference Range Interpretation Comments VITAMIN B12 (test code = VITB12) pg/mL 193-986 FAMILY MEMEBER DOES NOT WANT THE PATIENT TO BE STUCK ARTUR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 Interpretation Comments LIPASE (test code = LIP) 184 U/L 73.0-393.0 N [id number] 20:21:00* Test Item Value Reference Range Interpretation Comments TROPONIN-I (test code = TROPI) <0.015 ng/mL 0-0.045 N [id number] 20:21:00* Test Item Value Reference Range Interpretation Comments ALCOHOL (test code = ALC) 4 mg/dL 0.0-3.0 H -- INTERPRETIVE DATA NOTE: POSITIVE SCREENING RESULTS SHOULD BE CONSIDERED PRESUMPTIVE.WHEN COLLECTED FOR MEDICAL PURPOSES ONLY. SPECIMEN WILL NOTBE COLLECTED BY CHAIN OF CUSTODY.IF A CONFIRMATION OF POSITIVE RESULTS IS DESIRED, ACONFIRMATION TEST MUST BE REQUESTED BY THE PHYSICIAN AT ANADDITIONAL CHARGE TO THE PATIENT. BASIC METABOLIC [id number] 20:14:00* Test Item Value Reference Range Interpretation Comments SODIUM (test code = NA) 139 mmol/L 136-145 N POTASSIUM (test code = K) 4.6 mmol/L 3.5-5.1 N CHLORIDE (test code = CL) 113.0 mmol/L 98-107 H CARBON DIOXIDE (test code = CO2) mmol/L 21-32 ANION GAP (test code = GAP) 10-20 GLUCOSE (test code = GLU) mg/dL 74-106 BLOOD UREA NITROGEN (test code = BUN) mg/dL 7-18 GLOMERULAR FILTRATION RATE (test code = GFR) mL/min >=60 CREATININE (test code = CREAT) mg/dL 0.55-1.02 BUN/CREATININE RATIO (test code = BUN/CREA) 10-20 CALCIUM (test code = CA) mg/dL 8.5-10.1 HEPATIC FUNCTION [id number] 20:14:00* Test Item Value Reference Range Interpretation Comments TOTAL PROTEIN (test code = PROT) gram/dL 6.4-8.2 ALBUMIN (test code = ALB) g/dL 3.4-5.0 GLOBULIN (test code = GLOB) gram/dL 2.7-4.2 ALBUMIN/GLOBULIN RATIO (test code = A/G) 0.75-1.50 BILIRUBIN TOTAL (test code = BILT) mg/dL 0.0-1.0 BILIRUBIN DIRECT (test code = BILD) mg/dL 0.0-0.20 SGOT/AST (test code = AST) IUnit/L 15-37 SGPT/ALT (test code = ALT) IUnit/L 12-78 ALKALINE PHOSPHATASE TOTAL (test code = ALKP) IUnit/L 45-117 [id number] 20:14:00* Test Item Value Reference Range Interpretation Comments LIPASE (test code = LIP) U/L 73.0-393.0 [id number] 20:14:00* Test Item Value Reference Range Interpretation Comments TROPONIN-I (test code = TROPI) ng/mL 0-0.045 [id number] 20:14:00* Test Item Value Reference Range Interpretation Comments ALCOHOL (test code = ALC) mg/dL 0-3 PROTHROMBIN [id number] 20:13:00* Test Item Value Reference Range Interpretation Comments PROTHROMBIN TIME PATIENT (test code = PTP) 13.2 seconds 9.0-14.0 N INTERNATIONAL NORMAL RATIO (test code = INR) 1.1 0.8-1.2 N The therapeutic range for oral anticoagulant therapy formost indications is an international normalized ratio (INR)of between 2.0 and 3.0. The recommended therapeutic INRrange for various clinical situations is listed below: Clinical Situation INR range Pulmonary e mbolism treatment (2.0-3.0)Venous thrombosis treatmentVenous thrombosis prophylaxis (high risk surgery)Prevention of systemic embolism from: Acute myocardial infarction Valvular heart disease Atrial fibrillation Mechanical prosthetic heart valves (2.5-3.5) IS PATIENT ON ANTICOAGULANTS? NTHROMBOPLASTIN TIME [id number] 20:13:00* Test Item Value Reference Range Interpretation Comments THROMBOPLASTIN TIME PARTIAL (test code = PTT) 27.4 seconds 25.0-36. 5 N IS PATIENT ON ANTICOAGULANTS? NCBC W/O [id number] 20:10:00* Test Item Value Reference Range Interpretation Comments WHITE BLOOD CELL (test code = WBC) 2.0 K/mm3 4.5-12.5 L RED BLOOD CELL (test code = RBC) 4.16 mill/mm3 3.7-5.2 N HEMOGLOBIN (test code = HGB) 14.0 gram/dL 11.5-15.5 N HEMATOCRIT (test code = HCT) 41.0 % 36.0-46.0 N MEAN CELL VOLUME (test code = MCV) 98.6 fL 80-98 H MEAN CELL HGB (test code = MCH) 33.7 picogram 27.0-33.0 H MEAN CELL HGB CONCETRATION (test code = MCHC) 34.1 gram/dL 33.0-36. 0 N RED CELL DISTRIBUTION WIDTH (test code = RDW) 13.4 % 11.6-16. 2 N PLATELET COUNT (test code = PLT) 35 K/mm3 150-450 LL Results called to DR AGUIRRE by V.LAB.LT 11/29/18 2010Critical results verified and read back by Nurse? Y MEAN PLATELET VOLUME (test code = MPV) 9.5 fL 6.7-11.0 N BASIC METABOLIC [id number] 15:57:00* Test Item Value Reference Range Interpretation Comments SODIUM (test code = NA) 141 mmol/L 136-145 N POTASSIUM (test code = K) 4.2 mmol/L 3.5-5.1 N CHLORIDE (test code = CL) 113.0 mmol/L 98-107 H CARBON DIOXIDE (test code = CO2) 25.0 mmol/L 21-32 N ANION GAP (test code = GAP) 7.2 10-20 L GLUCOSE (test code = GLU) 86 mg/dL 74-106 N BLOOD UREA NITROGEN (test code = BUN) 12 mg/dL 7-18 N GLOMERULAR FILTRATION RATE (test code = GFR) > 60 mL/min >=60 Estimated GFR by using Modified MDRD formula.Chronic kidney disease is defined as either kidney damageor GFR <60 mL/min/1.73 m2 for >3 months. CREATININE (test code = CREAT) 0.50 mg/dL 0.55-1.02 L Note change in reference range due to change in reagent. BUN/CREATININE RATIO (test code = BUN/CREA) 22.6 10-20 H CALCIUM (test code = CA) 8.5 mg/dL 8.5-10.1 N [id number] 15:57:00* Test Item Value Reference Range Interpretation Comments TROPONIN-I (test code = TROPI) <0.015 ng/mL 0-0.045 N HEPATIC FUNCTION [id number] 15:37:00* Test Item Value Reference Range Interpretation Comments TOTAL PROTEIN (test code = PROT) 7.1 gram/dL 6.4-8.2 N ALBUMIN (test code = ALB) 3.3 g/dL 3.4-5.0 L GLOBULIN (test code = GLOB) 3.8 gram/dL 2.7-4.2 N ALBUMIN/GLOBULIN RATIO (test code = A/G) 0.9 0.75-1.50 N BILIRUBIN TOTAL (test code = BILT) 1.30 mg/dL 0.0-1.0 H BILIRUBIN DIRECT (test code = BILD) 0.33 mg/dL 0.0-0.20 H SGOT/AST (test code = AST) 42 IUnit/L 15-37 H SGPT/ALT (test code = ALT) 25 IUnit/L 12-78 N ALKALINE PHOSPHATASE TOTAL (test code = ALKP) 95 IUnit/L 45-117 N Note change in reference range due to change in reagent. [id number] 15:37:00* Test Item Value Reference Range Interpretation Comments LIPASE (test code = LIP) 187 U/L 73.0-393.0 N BASIC METABOLIC [id number] 15:37:00* Test Item Value Reference Range Interpretation Comments SODIUM (test code = NA) 141 mmol/L 136-145 N POTASSIUM (test code = K) 4.2 mmol/L 3.5-5.1 N CHLORIDE (test code = CL) 113.0 mmol/L 98-107 H CARBON DIOXIDE (test code = CO2) mmol/L 21-32 ANION GAP (test code = GAP) 10-20 GLUCOSE (test code = GLU) mg/dL 74-106 BLOOD UREA NITROGEN (test code = BUN) mg/dL 7-18 GLOMERULAR FILTRATION RATE (test code = GFR) mL/min >=60 CREATININE (test code = CREAT) mg/dL 0.55-1.02 BUN/CREATININE RATIO (test code = BUN/CREA) 10-20 CALCIUM (test code = CA) mg/dL 8.5-10.1 [id number] 15:37:00* Test Item Value Reference Range Interpretation Comments TROPONIN-I (test code = TROPI) ng/mL 0-0.045 - XR CHEST 1 [id number] 11:44:00 FAX: Serafin Mayorga DO [place]: St: REG Name: Govind WILSONCASI QUINN [facility] : [birth year] Age/S: 53/F [address] [facility] Unit #: [id number] Loc: [place] [address] Phys: Serafin Mayorga DO Acct: [id number] Dis Date: Status: REG ER PHONE #: [phone] Exam Date: 11/29/2018 1130 FAX #: [phone] Reason: Shortness of Breath EXAMS: CPT CODE: [id number] XR CHEST 1 V 36836 REASON FOR EXAM: Shortness of Breath Exam Order Date: 11/29/2018 10:37 AM Ordering M.D.: Serafin Mayorga DO PROCEDURE: - XR CHEST 1 V COMPARISON: Frontal chest x-ray June 02, 2017 FINDINGS: The lungs are clear. There is no pleural effusion or pneumothorax. Pulmon emily vascularity is within normal limits. Cardiomediastinal silhoue tte is normal in size for technique. The mediastinal contours are within n ormal limits. Musculoskeletal structures are within normal limits. The visualized upper abdomen is within normal limits. IMPRESSION: No acute cardiopulmonary process. E lectronically Signed by Jose Pineda MD on 11/29/2018 at 1144 Reported and signed by: Jose Pineda MD CC: Serafin Mayorga DO Technologist: EKATERINA RAI RT(R) Trnscrd Date/Time/By: 11/29/2018 (1144) : By: [email or web address] Orig Print D/T: S: 11/29/2018 (9317) PAGE 1 Signed Report ALPHA FETOPROTEIN (AFP), TUMOR [id number] 13:42:00* Test Item Value Reference Range Interpretation Comments ALPHA-FETOPROTEIN (BEAKER) (test code = 1094) 3.7 ng/mL <10.0 HEPATIC FUNCTION [id number] 13:15:00* Test Item Value Reference Range Interpretation Comments TOTAL PROTEIN (BEAKER) (test code = 770) 7.6 gm/dL 6.0-8.3 ALBUMIN (BEAKER) (test code = 1145) 3.8 g/dL 3.5-5.0 BILIRUBIN TOTAL (BEAKER) (test code = 377) 1.1 mg/dL 0.2-1.2 BILIRUBIN DIRECT (BEAKER) (test code = 706) 0.7 mg/dL 0.1-0.5 H ALKALINE PHOSPHATASE (BEAKER) (test code = 346) 109 U/L 40-150 AST (SGOT) (BEAKER) (test code = 353) 35 U/L 5-34 H ALT (SGPT) (BEAKER) (test code = 347) 22 U/L 6-55 BASIC METABOLIC [id number] 13:15:00* Test Item Value Reference Range Interpretation Comments SODIUM (BEAKER) (test code = 381) 139 meq/L 136-145 POTASSIUM (BEAKER) (test code = 379) 4.0 meq/L 3.5-5.1 CHLORIDE (BEAKER) (test code = 382) 110 meq/L 98-107 H CO2 (BEAKER) (test code = 355) 22 meq/L 22-29 BLOOD UREA NITROGEN (BEAKER) (test code = 354) 16 mg/dL 7-21 CREATININE (BEAKER) (test code = 358) 0.64 mg/dL 0.57-1.25 GLUCOSE RANDOM (BEAKER) (test code = 652) 81 mg/dL 70-105 CALCIUM (BEAKER) (test code = 697) 9.0 mg/dL 8.4-10.2 EGFR (BEAKER) (test code = 1092) 98 mL/min/1.73 sq m ESTIMATED GFR IS NOT ACCURATE CREATININE CLEARANCE IN PREDICTING GLOMERULAR FILTRATION RATE. ESTIMATED GFR IS NOT APPLICABLE FOR DIALYSIS PATIENTS. PROTHROMBIN TIME/[id number] 12:52:00* Test Item Value Reference Range Interpretation Comments PROTIME (BEAKER) (test code = 759) 14.6 seconds 11.9-14.2 H INR (BEAKER) (test code = 370) 1.2 <=5.9 Effective 08/30/2018: PT Reference Range ChangeNew: 11.9-14.2 Previous: 11.7-14. 7RECOMMENDED COUMADIN/WARFARIN INR THERAPY RANGESSTANDARD DOSE: 2.0-3.0 Include s: PROPHYLAXIS for venous thrombosis, systemic embolization; TREATMENT for venou s thrombosis and/or pulmonary embolus.HIGH RISK: Target INR is 2.5-3.5 for patie nts wiht mechanical heart valves.CBC W/PLT COUNT & AUTO [id number] 12:48:00* Test Item Value Reference Range Interpretation Comments WHITE BLOOD CELL COUNT (BEAKER) (test code = 775) 2.2 K/ L 3.5- 10.5 L RED BLOOD CELL COUNT (BEAKER) (test code = 761) 3.92 M/ L 3.93-5 .22 L HEMOGLOBIN (BEAKER) (test code = 410) 13.3 GM/DL 11.2-15.7 HEMATOCRIT (BEAKER) (test code = 411) 38.1 % 34.1-44.9 MEAN CORPUSCULAR VOLUME (BEAKER) (test code = 753) 97.2 fL 79. 4-94.8 H MEAN CORPUSCULAR HEMOGLOBIN (BEAKER) (test code = 751) 33.9 pg 25.6-32.2 H MEAN CORPUSCULAR HEMOGLOBIN CONC (BEAKER) (test code = 752) 34.9 GM/DL 32.2-35.5 RED CELL DISTRIBUTION WIDTH (BEAKER) (test code = 412) 13.4 % 11.7-14.4 PLATELET COUNT (BEAKER) (test code = 756) 40 K/CU MM 150-450 L MEAN PLATELET VOLUME (BEAKER) (test code = 754) 11.2 fL 9.4-12 .3 NUCLEATED RED BLOOD CELLS (BEAKER) (test code = 413) 0 /100 WBC 0 -0 NEUTROPHILS RELATIVE PERCENT (BEAKER) (test code = 429) 54 % LYMPHOCYTES RELATIVE PERCENT (BEAKER) (test code = 430) 32 % MONOCYTES RELATIVE PERCENT (BEAKER) (test code = 431) 8 % EOSINOPHILS RELATIVE PERCENT (BEAKER) (test code = 432) 6 % BASOPHILS RELATIVE PERCENT (BEAKER) (test code = 437) 1 % NEUTROPHILS ABSOLUTE COUNT (BEAKER) (test code = 670) 1.20 K/ L 1.56-6.13 L LYMPHOCYTES ABSOLUTE COUNT (BEAKER) (test code = 414) 0.70 K/ L 1.18-3.74 L MONOCYTES ABSOLUTE COUNT (BEAKER) (test code = 415) 0.17 K/ L 0. 24-0.36 L EOSINOPHILS ABSOLUTE COUNT (BEAKER) (test code = 416) 0.13 K/ L 0.04-0.36 BASOPHILS ABSOLUTE COUNT (BEAKER) (test code = 417) 0.02 K/ L 0. 01-0.08 IMMATURE GRANULOCYTES-RELATIVE PERCENT (BEAKER) (test code = 2801) 0 % 0-1 GASTRIC,[id number] 13:13:00 RUN DATE: 10/26/18 [facility] - Lab PAGE 1 RUN TIME: 1313 Specimen Inqui ry RUN USER: INTERFACE PATIENT: CASI CHANDRA ACCT #: [id number] LOC: [facility] U #: [id number] AGE/SX: 53/F ROOM: RE10/25/18[facility] DR: Evangelist Mora : 69 BED: DIS: STATUS: [facility] TLOC: SPEC #: [id number] RECD: 10/25/18 STATUS: PATRICIA [facility] #: [id number] IVA: 10/25/[address] [facility] [address]: Evangelist Mora MD ENTERED: 10/25/18 SP TYPE: GASTRIC BX OTHR DR: No [facility] Physician ORDERED: GROSS COPIES TO: Evangelist Mora MD [address], [address] [place] [address] No Primary Care Physicia n Use by ED only for patient without primary care physician ED USE ONLY-Pt .w/o primary MD PROCEDURES: GROSS (10/26/18) TISSUES: ANTRUM - CO LD BX CLINICAL HISTORY COLLECTION DATE: 10/25/2018 GASTROPARESI S POST-OP DIAGNOSIS: GASTROPARESIS FINAL DIAGNOSIS Stomach, antrum, biopsy: CHRONIC INACTIVE GASTRITIS, MINIMAL TO MILD NO DIAGNOSTIC HELICOBACTER IDENTIFIED NO ULCERATION, INTESTINAL METAPLASIA, DYSPLASIA OR MALIGNANCY IDENTIFIED FA/sm D 53750, 95742 MACROSCOPIC The specimen is received in formalin, labeled with the patient's name, identified as "antrum bx", and consists of two mcfadden biopsy tissue measur ing 0.4 and 0.25 cm. An H E and a Giemsa stain will be prepared. CONTINUED ON NEXT PAGE RUN DATE: [facility] PAGE 2 RUN TIME: 1313 Specimen Inquiry RUN US ER: INTERFACE -------- ----SPEC #: [id number] PATIENT: CASI CHANDRA #[id number] (Continued) MACROSCOPIC (Continued) GR OSS PERFORMED AT [facility] TS [address] [facility] [address] [phone] MICRO SCOPIC Sections of antral mucosa shows minimal to mild focal expansion of mejias lizzie propria by chronic inflammatory cells. Giemsa stain with appropriate cont rol shows no diagnostic helicobacter. No intestinal metaplasia, dysplasia or malignancy is identified. PERFORMING SITE Diagnosis performed at: [facility] [address] [facility], [place] [address] ------ ------ Signed SIGNATURE ON FILE Eric Almaguer MD 10/26/18 1313 END OF REPORT CBC W/MANUAL [id number] 18:55:00* Test Item Value Reference Range Interpretation Comments WHITE BLOOD CELL (test code = WBC) 1.9 K/mm3 4.5-12.5 L Has "Path Review" been performed on patient's currentadmission?If yes, please insert path review specimen here NONE If not, please order "Path Review" for the followingcriteria:1/ WBC count over 40,000/mm3 or below 2,000/mm32/ Platelet counts over 1,000,000/mm3, or below 10,000/mm3, or with abnormal morphology.3/ Abnormal red cell morphology or inclusions which are severe (> 3+) , widespread, or difficult to classify.4/ Abnormal white blood cell morphology: Blasts present in peripheral blood of any patient as a new finding. Abnormal cells suspected of being blasts. Patients with large numbers of immature cells in peripheral blood. Unusual cells or cells not easily classified in peripheral blood.5/ Any smear in which the technologist is uncertain of the classification or the disease. RED BLOOD CELL (test code = RBC) 4.04 mill/mm3 3.7-5.2 N HEMOGLOBIN (test code = HGB) 13.8 gram/dL 11.5-15.5 N HEMATOCRIT (test code = HCT) 40.3 % 36.0-46.0 N MEAN CELL VOLUME (test code = MCV) 99.8 fL 80-98 H MEAN CELL HGB (test code = MCH) 34.2 picogram 27.0-33.0 H MEAN CELL HGB CONCETRATION (test code = MCHC) 34.2 gram/dL 33.0-36. 0 N RED CELL DISTRIBUTION WIDTH (test code = RDW) 13.3 % 11.6-16. 2 N RED CELL DISTRIBUTION WIDTH SD (test code = RDW-SD) 49.2 fL 37 .0-51.0 N PLATELET COUNT (test code = PLT) 43 K/mm3 150-450 LL Results called to [id number] by WALTER 10/23/18 1043Critical results verified and read back by Nurse? Y MEAN PLATELET VOLUME (test code = MPV) 10.2 fL 6.7-11.0 N IMMATURE GRANULOCYTE % (test code = IG%) 0.5 % 0.0-5.0 N NUCLEATED RBC % (test code = NRBC%) 0.0 % 0-0 N NEUTROPHIL # (test code = NT#) 1.04 K/mm3 1.8-7.7 L IMMATURE GRANULOCYTE # (test code = IG#) 0.01 x10 3/uL 0-0.03 N LYMPHOCYTE # (test code = LY#) 0.61 K/mm3 1.0-5.0 L MONOCYTE # (test code = MO#) 0.13 K/mm3 0-0.8 N EOSINOPHIL # (test code = EO#) 0.09 K/mm3 0.0-0.5 N BASOPHIL # (test code = BA#) 0.02 K/mm3 0.0-0.2 N NUCLEATED RBC # (test code = NRBC#) 0.00 K/mm3 0.0-0.1 N MANUAL DIFF REQUIRED (test code = MDIFF) YES STAIN ACCEPTABILITY (test code = STN ACCEPTABLE) STAIN ACCEPTABLE TOTAL CELLS COUNTED (test code = TCC) 114 #CELLS SEGMENTED NEUTROPHILS (test code = SEG) 67.8 % 39-69 N BAND NEUTROPHIL (test code = BAND) 0 % 0-10 N LYMPHOCYTE (test code = LYMPH) 20.5 % 25-55 L REACTIVE LYMPH (test code = RELYMPH) 0 % MONOCYTE (test code = MON) 3.6 % 0-10 N EOSINOPHIL (test code = EOS) 4.5 % 0.0-5.0 N BASOPHIL (test code = BASO) 3.6 % 0-1.0 H METAMYELOCYTE (test code = META) 0 % 0-0 N MYELOCYTE (test code = MYELO) 0 % 0.0-0.0 N PROMYELOCYTE (test code = PROM) 0 % 0-0 N ANISOCYTOSIS (test code = ANISO) 1+ MACROCYTOSIS (test code = MACR) 1+ PLATELET ESTIMATE (test code = PLTEST) DECREASED PLATELET MORPHOLOGY (test code = PLTMORPH) NORMAL IMMATURE FORMS (test code = IMMAT) 0 % 0-0 N PATHOLOGISTS [id number] 18:55:00* Test Item Value Reference Range Interpretation Comments PATHOLOGISTS FINDINGS (test code = PATH) PATH NOTES LEUKOPENIA WITH PREDOMINANCE OF LYMPHOCYTES AND MILD TOXICGRANULATION. THROMBOCYTOPENIA. LISSET MCDERMOTT M.D.10/23/18 CBC W/MANUAL [id number] 13:41:00* Test Item Value Reference Range Interpretation Comments WHITE BLOOD CELL (test code = WBC) 1.9 K/mm3 4.5-12.5 L Has "Path Review" been performed on patient's currentadmission?If yes, please insert path review specimen here NONE If not, please order "Path Review" for the followingcriteria:1/ WBC count over 40,000/mm3 or below 2,000/mm32/ Platelet counts over 1,000,000/mm3, or below 10,000/mm3, or with abnormal morphology.3/ Abnormal red cell morphology or inclusions which are severe (> 3+) , widespread, or difficult to classify.4/ Abnormal white blood cell morphology: Blasts present in peripheral blood of any patient as a new finding. Abnormal cells suspected of being blasts. Patients with large numbers of immature cells in peripheral blood. Unusual cells or cells not easily classified in peripheral blood.5/ Any smear in which the technologist is uncertain of the classification or the disease. RED BLOOD CELL (test code = RBC) 4.04 mill/mm3 3.7-5.2 N HEMOGLOBIN (test code = HGB) 13.8 gram/dL 11.5-15.5 N HEMATOCRIT (test code = HCT) 40.3 % 36.0-46.0 N MEAN CELL VOLUME (test code = MCV) 99.8 fL 80-98 H MEAN CELL HGB (test code = MCH) 34.2 picogram 27.0-33.0 H MEAN CELL HGB CONCETRATION (test code = MCHC) 34.2 gram/dL 33.0-36. 0 N RED CELL DISTRIBUTION WIDTH (test code = RDW) 13.3 % 11.6-16. 2 N RED CELL DISTRIBUTION WIDTH SD (test code = RDW-SD) 49.2 fL 37 .0-51.0 N PLATELET COUNT (test code = PLT) 43 K/mm3 150-450 LL Results called to [id number] by WALTER 10/23/18 [id number] results verified and read back by Nurse? Y MEAN PLATELET VOLUME (test code = MPV) 10.2 fL 6.7-11.0 N IMMATURE GRANULOCYTE % (test code = IG%) 0.5 % 0.0-5.0 N NUCLEATED RBC % (test code = NRBC%) 0.0 % 0-0 N NEUTROPHIL # (test code = NT#) 1.04 K/mm3 1.8-7.7 L IMMATURE GRANULOCYTE # (test code = IG#) 0.01 x10 3/uL 0-0.03 N LYMPHOCYTE # (test code = LY#) 0.61 K/mm3 1.0-5.0 L MONOCYTE # (test code = MO#) 0.13 K/mm3 0-0.8 N EOSINOPHIL # (test code = EO#) 0.09 K/mm3 0.0-0.5 N BASOPHIL # (test code = BA#) 0.02 K/mm3 0.0-0.2 N NUCLEATED RBC # (test code = NRBC#) 0.00 K/mm3 0.0-0.1 N MANUAL DIFF REQUIRED (test code = MDIFF) YES STAIN ACCEPTABILITY (test code = STN ACCEPTABLE) STAIN ACCEPTABLE TOTAL CELLS COUNTED (test code = TCC) 114 #CELLS SEGMENTED NEUTROPHILS (test code = SEG) 67.8 % 39-69 N BAND NEUTROPHIL (test code = BAND) 0 % 0-10 N LYMPHOCYTE (test code = LYMPH) 20.5 % 25-55 L REACTIVE LYMPH (test code = RELYMPH) 0 % MONOCYTE (test code = MON) 3.6 % 0-10 N EOSINOPHIL (test code = EOS) 4.5 % 0.0-5.0 N BASOPHIL (test code = BASO) 3.6 % 0-1.0 H METAMYELOCYTE (test code = META) 0 % 0-0 N MYELOCYTE (test code = MYELO) 0 % 0.0-0.0 N PROMYELOCYTE (test code = PROM) 0 % 0-0 N ANISOCYTOSIS (test code = ANISO) 1+ MACROCYTOSIS (test code = MACR) 1+ PLATELET ESTIMATE (test code = PLTEST) DECREASED PLATELET MORPHOLOGY (test code = PLTMORPH) NORMAL IMMATURE FORMS (test code = IMMAT) 0 % 0-0 N PATHOLOGISTS [id number] 13:41:00* Test Item Value Reference Range Interpretation Comments PATHOLOGISTS FINDINGS (test code = PATH) PATH NOTES CBC W/MANUAL [id number] 13:37:00* Test Item Value Reference Range Interpretation Comments WHITE BLOOD CELL (test code = WBC) 1.9 K/mm3 4.5-12.5 L Has "Path Review" been performed on patient's currentadmission?If yes, please insert path review specimen here NONE If not, please order "Path Review" for the followingcriteria:1/ WBC count over 40,000/mm3 or below 2,000/mm32/ Platelet counts over 1,000,000/mm3, or below 10,000/mm3, or with abnormal morphology.3/ Abnormal red cell morphology or inclusions which are severe (> 3+) , widespread, or difficult to classify.4/ Abnormal white blood cell morphology: Blasts present in peripheral blood of any patient as a new finding. Abnormal cells suspected of being blasts. Patients with large numbers of immature cells in peripheral blood. Unusual cells or cells not easily classified in peripheral blood.5/ Any smear in which the technologist is uncertain of the classification or the disease. RED BLOOD CELL (test code = RBC) 4.04 mill/mm3 3.7-5.2 N HEMOGLOBIN (test code = HGB) 13.8 gram/dL 11.5-15.5 N HEMATOCRIT (test code = HCT) 40.3 % 36.0-46.0 N MEAN CELL VOLUME (test code = MCV) 99.8 fL 80-98 H MEAN CELL HGB (test code = MCH) 34.2 picogram 27.0-33.0 H MEAN CELL HGB CONCETRATION (test code = MCHC) 34.2 gram/dL 33.0-36. 0 N RED CELL DISTRIBUTION WIDTH (test code = RDW) 13.3 % 11.6-16. 2 N RED CELL DISTRIBUTION WIDTH SD (test code = RDW-SD) 49.2 fL 37 .0-51.0 N PLATELET COUNT (test code = PLT) 43 K/mm3 150-450 LL Results called to [id number] by WALTER 10/23/18 1043Critical results verified and read back by Nurse? Y MEAN PLATELET VOLUME (test code = MPV) 10.2 fL 6.7-11.0 N IMMATURE GRANULOCYTE % (test code = IG%) 0.5 % 0.0-5.0 N NUCLEATED RBC % (test code = NRBC%) 0.0 % 0-0 N NEUTROPHIL # (test code = NT#) 1.04 K/mm3 1.8-7.7 L IMMATURE GRANULOCYTE # (test code = IG#) 0.01 x10 3/uL 0-0.03 N LYMPHOCYTE # (test code = LY#) 0.61 K/mm3 1.0-5.0 L MONOCYTE # (test code = MO#) 0.13 K/mm3 0-0.8 N EOSINOPHIL # (test code = EO#) 0.09 K/mm3 0.0-0.5 N BASOPHIL # (test code = BA#) 0.02 K/mm3 0.0-0.2 N NUCLEATED RBC # (test code = NRBC#) 0.00 K/mm3 0.0-0.1 N MANUAL DIFF REQUIRED (test code = MDIFF) YES STAIN ACCEPTABILITY (test code = STN ACCEPTABLE) STAIN ACCEPTABLE TOTAL CELLS COUNTED (test code = TCC) 114 #CELLS SEGMENTED NEUTROPHILS (test code = SEG) 67.8 % 39-69 N BAND NEUTROPHIL (test code = BAND) 0 % 0-10 N LYMPHOCYTE (test code = LYMPH) 20.5 % 25-55 L REACTIVE LYMPH (test code = RELYMPH) 0 % MONOCYTE (test code = MON) 3.6 % 0-10 N EOSINOPHIL (test code = EOS) 4.5 % 0.0-5.0 N BASOPHIL (test code = BASO) 3.6 % 0-1.0 H METAMYELOCYTE (test code = META) 0 % 0-0 N MYELOCYTE (test code = MYELO) 0 % 0.0-0.0 N PROMYELOCYTE (test code = PROM) 0 % 0-0 N ANISOCYTOSIS (test code = ANISO) 1+ MACROCYTOSIS (test code = MACR) 1+ PLATELET ESTIMATE (test code = PLTEST) DECREASED PLATELET MORPHOLOGY (test code = PLTMORPH) NORMAL IMMATURE FORMS (test code = IMMAT) 0 % 0-0 N BASIC METABOLIC [id number] 11:33:00* Test Item Value Reference Range Interpretation Comments SODIUM (test code = NA) 142 mmol/L 136-145 N POTASSIUM (test code = K) 4.1 mmol/L 3.5-5.1 N CHLORIDE (test code = CL) 110.0 mmol/L 98-107 H CARBON DIOXIDE (test code = CO2) 27.0 mmol/L 21-32 N ANION GAP (test code = GAP) 9.1 10-20 L GLUCOSE (test code = GLU) 90 mg/dL 74-106 N BLOOD UREA NITROGEN (test code = BUN) 12 mg/dL 7-18 N GLOMERULAR FILTRATION RATE (test code = GFR) > 60 mL/min >=60 Estimated GFR by using Modified MDRD formula.Chronic kidney disease is defined as either kidney damageor GFR <60 mL/min/1.73 m2 for >3 months. CREATININE (test code = CREAT) 0.70 mg/dL 0.55-1.02 N Note change in reference range due to change in reagent. BUN/CREATININE RATIO (test code = BUN/CREA) 18.2 10-20 N CALCIUM (test code = CA) 8.9 mg/dL 8.5-10.1 N HEPATIC FUNCTION [id number] 11:33:00* Test Item Value Reference Range Interpretation Comments TOTAL PROTEIN (test code = PROT) 7.5 gram/dL 6.4-8.2 N ALBUMIN (test code = ALB) 3.6 g/dL 3.4-5.0 N GLOBULIN (test code = GLOB) 3.9 gram/dL 2.7-4.2 N ALBUMIN/GLOBULIN RATIO (test code = A/G) 0.9 0.75-1.50 N BILIRUBIN TOTAL (test code = BILT) 1.30 mg/dL 0.0-1.0 H BILIRUBIN DIRECT (test code = BILD) 0.52 mg/dL 0.0-0.20 H SGOT/AST (test code = AST) 40 IUnit/L 15-37 H SGPT/ALT (test code = ALT) 35 IUnit/L 12-78 N ALKALINE PHOSPHATASE TOTAL (test code = ALKP) 103 IUnit/L 45-117 N Note change in reference range due to change in reagent. BASIC METABOLIC [id number] 11:03:00* Test Item Value Reference Range Interpretation Comments SODIUM (test code = NA) 142 mmol/L 136-145 N POTASSIUM (test code = K) 4.1 mmol/L 3.5-5.1 N CHLORIDE (test code = CL) 110.0 mmol/L 98-107 H CARBON DIOXIDE (test code = CO2) mmol/L 21-32 ANION GAP (test code = GAP) 10-20 GLUCOSE (test code = GLU) mg/dL 74-106 BLOOD UREA NITROGEN (test code = BUN) mg/dL 7-18 GLOMERULAR FILTRATION RATE (test code = GFR) mL/min >=60 CREATININE (test code = CREAT) mg/dL 0.55-1.02 BUN/CREATININE RATIO (test code = BUN/CREA) 10-20 CALCIUM (test code = CA) mg/dL 8.5-10.1 HEPATIC FUNCTION [id number] 11:03:00* Test Item Value Reference Range Interpretation Comments TOTAL PROTEIN (test code = PROT) gram/dL 6.4-8.2 ALBUMIN (test code = ALB) g/dL 3.4-5.0 GLOBULIN (test code = GLOB) gram/dL 2.7-4.2 ALBUMIN/GLOBULIN RATIO (test code = A/G) 0.75-1.50 BILIRUBIN TOTAL (test code = BILT) mg/dL 0.0-1.0 BILIRUBIN DIRECT (test code = BILD) mg/dL 0.0-0.20 SGOT/AST (test code = AST) IUnit/L 15-37 SGPT/ALT (test code = ALT) IUnit/L 12-78 ALKALINE PHOSPHATASE TOTAL (test code = ALKP) IUnit/L 45-117 CBC W/MANUAL [id number] 10:45:00* Test Item Value Reference Range Interpretation Comments WHITE BLOOD CELL (test code = WBC) 1.9 K/mm3 4.5-12.5 L Has "Path Review" been performed on patient's currentadmission?If yes, please insert path review specimen here NONE If not, please order "Path Review" for the followingcriteria:1/ WBC count over 40,000/mm3 or below 2,000/mm32/ Platelet counts over 1,000,000/mm3, or below 10,000/mm3, or with abnormal morphology.3/ Abnormal red cell morphology or inclusions which are severe (> 3+) , widespread, or difficult to classify.4/ Abnormal white blood cell morphology: Blasts present in peripheral blood of any patient as a new finding. Abnormal cells suspected of being blasts. Patients with large numbers of immature cells in peripheral blood. Unusual cells or cells not easily classified in peripheral blood.5/ Any smear in which the technologist is uncertain of the classification or the disease. RED BLOOD CELL (test code = RBC) 4.04 mill/mm3 3.7-5.2 N HEMOGLOBIN (test code = HGB) 13.8 gram/dL 11.5-15.5 N HEMATOCRIT (test code = HCT) 40.3 % 36.0-46.0 N MEAN CELL VOLUME (test code = MCV) 99.8 fL 80-98 H MEAN CELL HGB (test code = MCH) 34.2 picogram 27.0-33.0 H MEAN CELL HGB CONCETRATION (test code = MCHC) 34.2 gram/dL 33.0-36. 0 N RED CELL DISTRIBUTION WIDTH (test code = RDW) 13.3 % 11.6-16. 2 N RED CELL DISTRIBUTION WIDTH SD (test code = RDW-SD) 49.2 fL 37 .0-51.0 N PLATELET COUNT (test code = PLT) 43 K/mm3 150-450 LL Results called to [id number] by RomeoLABMalachiCA 10/23/18 1043Critical results verified and read back by Nurse? Y MEAN PLATELET VOLUME (test code = MPV) 10.2 fL 6.7-11.0 N IMMATURE GRANULOCYTE % (test code = IG%) 0.5 % 0.0-5.0 N NUCLEATED RBC % (test code = NRBC%) 0.0 % 0-0 N NEUTROPHIL # (test code = NT#) 1.04 K/mm3 1.8-7.7 L IMMATURE GRANULOCYTE # (test code = IG#) 0.01 x10 3/uL 0-0.03 N LYMPHOCYTE # (test code = LY#) 0.61 K/mm3 1.0-5.0 L MONOCYTE # (test code = MO#) 0.13 K/mm3 0-0.8 N EOSINOPHIL # (test code = EO#) 0.09 K/mm3 0.0-0.5 N BASOPHIL # (test code = BA#) 0.02 K/mm3 0.0-0.2 N NUCLEATED RBC # (test code = NRBC#) 0.00 K/mm3 0.0-0.1 N MANUAL DIFF REQUIRED (test code = MDIFF) YES STAIN ACCEPTABILITY (test code = STN ACCEPTABLE) TOTAL CELLS COUNTED (test code = TCC) #CELLS SEGMENTED NEUTROPHILS (test code = SEG) % 39-69 LYMPHOCYTE (test code = LYMPH) % 25-55 MONOCYTE (test code = MON) % 0-10 EOSINOPHIL (test code = EOS) % 0.0-5.0 CABOT RINGS (test code = CAB) MORPHOLOGY COMMENT (test code = MOC) PLATELET ESTIMATE (test code = PLTEST) PLATELET MORPHOLOGY (test code = PLTMORPH) CBC W/MANUAL [id number] 10:45:00* Test Item Value Reference Range Interpretation Comments WHITE BLOOD CELL (test code = WBC) 1.9 K/mm3 4.5-12.5 L Has "Path Review" been performed on patient's currentadmission?If yes, please insert path review specimen here NONE If not, please order "Path Review" for the followingcriteria:1/ WBC count over 40,000/mm3 or below 2,000/mm32/ Platelet counts over 1,000,000/mm3, or below 10,000/mm3, or with abnormal morphology.3/ Abnormal red cell morphology or inclusions which are severe (> 3+) , widespread, or difficult to classify.4/ Abnormal white blood cell morphology: Blasts present in peripheral blood of any patient as a new finding. Abnormal cells suspected of being blasts. Patients with large numbers of immature cells in peripheral blood. Unusual cells or cells not easily classified in peripheral blood.5/ Any smear in which the technologist is uncertain of the classification or the disease. RED BLOOD CELL (test code = RBC) 4.04 mill/mm3 3.7-5.2 N HEMOGLOBIN (test code = HGB) 13.8 gram/dL 11.5-15.5 N HEMATOCRIT (test code = HCT) 40.3 % 36.0-46.0 N MEAN CELL VOLUME (test code = MCV) 99.8 fL 80-98 H MEAN CELL HGB (test code = MCH) 34.2 picogram 27.0-33.0 H MEAN CELL HGB CONCETRATION (test code = MCHC) 34.2 gram/dL 33.0-36. 0 N RED CELL DISTRIBUTION WIDTH (test code = RDW) 13.3 % 11.6-16. 2 N RED CELL DISTRIBUTION WIDTH SD (test code = RDW-SD) 49.2 fL 37 .0-51.0 N PLATELET COUNT (test code = PLT) 43 K/mm3 150-450 LL Results called to [id number] by WLATER 10/23/18 1043Critical results verified and read back by Nurse? Y MEAN PLATELET VOLUME (test code = MPV) 10.2 fL 6.7-11.0 N IMMATURE GRANULOCYTE % (test code = IG%) 0.5 % 0.0-5.0 N NUCLEATED RBC % (test code = NRBC%) 0.0 % 0-0 N NEUTROPHIL # (test code = NT#) 1.04 K/mm3 1.8-7.7 L IMMATURE GRANULOCYTE # (test code = IG#) 0.01 x10 3/uL 0-0.03 N LYMPHOCYTE # (test code = LY#) 0.61 K/mm3 1.0-5.0 L MONOCYTE # (test code = MO#) 0.13 K/mm3 0-0.8 N EOSINOPHIL # (test code = EO#) 0.09 K/mm3 0.0-0.5 N BASOPHIL # (test code = BA#) 0.02 K/mm3 0.0-0.2 N NUCLEATED RBC # (test code = NRBC#) 0.00 K/mm3 0.0-0.1 N MANUAL DIFF REQUIRED (test code = MDIFF) YES STAIN ACCEPTABILITY (test code = STN ACCEPTABLE) TOTAL CELLS COUNTED (test code = TCC) #CELLS SEGMENTED NEUTROPHILS (test code = SEG) % 39-69 LYMPHOCYTE (test code = LYMPH) % 25-55 MONOCYTE (test code = MON) % 0-10 EOSINOPHIL (test code = EOS) % 0.0-5.0 CABOT RINGS (test code = CAB) MORPHOLOGY COMMENT (test code = MOC) PLATELET ESTIMATE (test code = PLTEST) PLATELET MORPHOLOGY (test code = PLTMORPH) CBC W/MANUAL [id number] 10:45:00* Test Item Value Reference Range Interpretation Comments WHITE BLOOD CELL (test code = WBC) 1.9 K/mm3 4.5-12.5 L Has "Path Review" been performed on patient's currentadmission?If yes, please insert path review specimen here NONE If not, please order "Path Review" for the followingcriteria:1/ WBC count over 40,000/mm3 or below 2,000/mm32/ Platelet counts over 1,000,000/mm3, or below 10,000/mm3, or with abnormal morphology.3/ Abnormal red cell morphology or inclusions which are severe (> 3+) , widespread, or difficult to classify.4/ Abnormal white blood cell morphology: Blasts present in peripheral blood of any patient as a new finding. Abnormal cells suspected of being blasts. Patients with large numbers of immature cells in peripheral blood. Unusual cells or cells not easily classified in peripheral blood.5/ Any smear in which the technologist is uncertain of the classification or the disease. RED BLOOD CELL (test code = RBC) 4.04 mill/mm3 3.7-5.2 N HEMOGLOBIN (test code = HGB) 13.8 gram/dL 11.5-15.5 N HEMATOCRIT (test code = HCT) 40.3 % 36.0-46.0 N MEAN CELL VOLUME (test code = MCV) 99.8 fL 80-98 H MEAN CELL HGB (test code = MCH) 34.2 picogram 27.0-33.0 H MEAN CELL HGB CONCETRATION (test code = MCHC) 34.2 gram/dL 33.0-36. 0 N RED CELL DISTRIBUTION WIDTH (test code = RDW) 13.3 % 11.6-16. 2 N RED CELL DISTRIBUTION WIDTH SD (test code = RDW-SD) 49.2 fL 37 .0-51.0 N PLATELET COUNT (test code = PLT) 43 K/mm3 150-450 LL Results called to [id number] by [email or web address] 10/23/18 1043Critical results verified and read back by Nurse? Y MEAN PLATELET VOLUME (test code = MPV) 10.2 fL 6.7-11.0 N IMMATURE GRANULOCYTE % (test code = IG%) 0.5 % 0.0-5.0 N NUCLEATED RBC % (test code = NRBC%) 0.0 % 0-0 N NEUTROPHIL # (test code = NT#) 1.04 K/mm3 1.8-7.7 L IMMATURE GRANULOCYTE # (test code = IG#) 0.01 x10 3/uL 0-0.03 N LYMPHOCYTE # (test code = LY#) 0.61 K/mm3 1.0-5.0 L MONOCYTE # (test code = MO#) 0.13 K/mm3 0-0.8 N EOSINOPHIL # (test code = EO#) 0.09 K/mm3 0.0-0.5 N BASOPHIL # (test code = BA#) 0.02 K/mm3 0.0-0.2 N NUCLEATED RBC # (test code = NRBC#) 0.00 K/mm3 0.0-0.1 N MANUAL DIFF REQUIRED (test code = MDIFF) YES STAIN ACCEPTABILITY (test code = STN ACCEPTABLE) TOTAL CELLS COUNTED (test code = TCC) #CELLS SEGMENTED NEUTROPHILS (test code = SEG) % 39-69 LYMPHOCYTE (test code = LYMPH) % 25-55 MONOCYTE (test code = MON) % 0-10 EOSINOPHIL (test code = EOS) % 0.0-5.0 MORPHOLOGY COMMENT (test code = MOC) PLATELET ESTIMATE (test code = PLTEST) PLATELET MORPHOLOGY (test code = PLTMORPH) CBC W/MANUAL [id number] 10:45:00* Test Item Value Reference Range Interpretation Comments WHITE BLOOD CELL (test code = WBC) 1.9 K/mm3 4.5-12.5 L Has "Path Review" been performed on patient's currentadmission?If yes, please insert path review specimen here NONE If not, please order "Path Review" for the followingcriteria:1/ WBC count over 40,000/mm3 or below 2,000/mm32/ Platelet counts over 1,000,000/mm3, or below 10,000/mm3, or with abnormal morphology.3/ Abnormal red cell morphology or inclusions which are severe (> 3+) , widespread, or difficult to classify.4/ Abnormal white blood cell morphology: Blasts present in peripheral blood of any patient as a new finding. Abnormal cells suspected of being blasts. Patients with large numbers of immature cells in peripheral blood. Unusual cells or cells not easily classified in peripheral blood.5/ Any smear in which the technologist is uncertain of the classification or the disease. RED BLOOD CELL (test code = RBC) 4.04 mill/mm3 3.7-5.2 N HEMOGLOBIN (test code = HGB) 13.8 gram/dL 11.5-15.5 N HEMATOCRIT (test code = HCT) 40.3 % 36.0-46.0 N MEAN CELL VOLUME (test code = MCV) 99.8 fL 80-98 H MEAN CELL HGB (test code = MCH) 34.2 picogram 27.0-33.0 H MEAN CELL HGB CONCETRATION (test code = MCHC) 34.2 gram/dL 33.0-36. 0 N RED CELL DISTRIBUTION WIDTH (test code = RDW) 13.3 % 11.6-16. 2 N RED CELL DISTRIBUTION WIDTH SD (test code = RDW-SD) 49.2 fL 37 .0-51.0 N PLATELET COUNT (test code = PLT) 43 K/mm3 150-450 LL Results called to [id number] by WALTER 10/23/18 1043Critical results verified and read back by Nurse? Y MEAN PLATELET VOLUME (test code = MPV) 10.2 fL 6.7-11.0 N IMMATURE GRANULOCYTE % (test code = IG%) 0.5 % 0.0-5.0 N NUCLEATED RBC % (test code = NRBC%) 0.0 % 0-0 N NEUTROPHIL # (test code = NT#) 1.04 K/mm3 1.8-7.7 L IMMATURE GRANULOCYTE # (test code = IG#) 0.01 x10 3/uL 0-0.03 N LYMPHOCYTE # (test code = LY#) 0.61 K/mm3 1.0-5.0 L MONOCYTE # (test code = MO#) 0.13 K/mm3 0-0.8 N EOSINOPHIL # (test code = EO#) 0.09 K/mm3 0.0-0.5 N BASOPHIL # (test code = BA#) 0.02 K/mm3 0.0-0.2 N NUCLEATED RBC # (test code = NRBC#) 0.00 K/mm3 0.0-0.1 N MANUAL DIFF REQUIRED (test code = MDIFF) YES STAIN ACCEPTABILITY (test code = STN ACCEPTABLE) TOTAL CELLS COUNTED (test code = TCC) #CELLS SEGMENTED NEUTROPHILS (test code = SEG) % 39-69 LYMPHOCYTE (test code = LYMPH) % 25-55 MONOCYTE (test code = MON) % 0-10 MORPHOLOGY COMMENT (test code = MOC) PLATELET ESTIMATE (test code = PLTEST) PLATELET MORPHOLOGY (test code = PLTMORPH) CBC W/MANUAL [id number] 10:45:00* Test Item Value Reference Range Interpretation Comments WHITE BLOOD CELL (test code = WBC) 1.9 K/mm3 4.5-12.5 L Has "Path Review" been performed on patient's currentadmission?If yes, please insert path review specimen here NONE If not, please order "Path Review" for the followingcriteria:1/ WBC count over 40,000/mm3 or below 2,000/mm32/ Platelet counts over 1,000,000/mm3, or below 10,000/mm3, or with abnormal morphology.3/ Abnormal red cell morphology or inclusions which are severe (> 3+) , widespread, or difficult to classify.4/ Abnormal white blood cell morphology: Blasts present in peripheral blood of any patient as a new finding. Abnormal cells suspected of being blasts. Patients with large numbers of immature cells in peripheral blood. Unusual cells or cells not easily classified in peripheral blood.5/ Any smear in which the technologist is uncertain of the classification or the disease. RED BLOOD CELL (test code = RBC) 4.04 mill/mm3 3.7-5.2 N HEMOGLOBIN (test code = HGB) 13.8 gram/dL 11.5-15.5 N HEMATOCRIT (test code = HCT) 40.3 % 36.0-46.0 N MEAN CELL VOLUME (test code = MCV) 99.8 fL 80-98 H MEAN CELL HGB (test code = MCH) 34.2 picogram 27.0-33.0 H MEAN CELL HGB CONCETRATION (test code = MCHC) 34.2 gram/dL 33.0-36. 0 N RED CELL DISTRIBUTION WIDTH (test code = RDW) 13.3 % 11.6-16. 2 N RED CELL DISTRIBUTION WIDTH SD (test code = RDW-SD) 49.2 fL 37 .0-51.0 N PLATELET COUNT (test code = PLT) 43 K/mm3 150-450 LL Results called to [id number] by WALTER 10/23/18 1043Critical results verified and read back by Nurse? Y MEAN PLATELET VOLUME (test code = MPV) 10.2 fL 6.7-11.0 N IMMATURE GRANULOCYTE % (test code = IG%) 0.5 % 0.0-5.0 N NUCLEATED RBC % (test code = NRBC%) 0.0 % 0-0 N NEUTROPHIL # (test code = NT#) 1.04 K/mm3 1.8-7.7 L IMMATURE GRANULOCYTE # (test code = IG#) 0.01 x10 3/uL 0-0.03 N LYMPHOCYTE # (test code = LY#) 0.61 K/mm3 1.0-5.0 L MONOCYTE # (test code = MO#) 0.13 K/mm3 0-0.8 N EOSINOPHIL # (test code = EO#) 0.09 K/mm3 0.0-0.5 N BASOPHIL # (test code = BA#) 0.02 K/mm3 0.0-0.2 N NUCLEATED RBC # (test code = NRBC#) 0.00 K/mm3 0.0-0.1 N MANUAL DIFF REQUIRED (test code = MDIFF) YES STAIN ACCEPTABILITY (test code = STN ACCEPTABLE) TOTAL CELLS COUNTED (test code = TCC) #CELLS SEGMENTED NEUTROPHILS (test code = SEG) % 39-69 LYMPHOCYTE (test code = LYMPH) % 25-55 MONOCYTE (test code = MON) % 0-10 EOSINOPHIL (test code = EOS) % 0.0-5.0 CABOT RINGS (test code = CAB) MORPHOLOGY COMMENT (test code = MOC) PLATELET ESTIMATE (test code = PLTEST) PLATELET MORPHOLOGY (test code = PLTMORPH) PROTHROMBIN [id number] 10:37:00* Test Item Value Reference Range Interpretation Comments PROTHROMBIN TIME PATIENT (test code = PTP) 13.7 seconds 9.0-14.0 N INTERNATIONAL NORMAL RATIO (test code = INR) 1.2 0.8-1.2 N The therapeutic range for oral anticoagulant therapy formost indications is an international normalized ratio (INR)of between 2.0 and 3.0. The recommended therapeutic INRrange for various clinical situations is listed below: Clinical Situation INR range Pulmonary e mbolism treatment (2.0-3.0)Venous thrombosis treatmentVenous thrombosis prophylaxis (high risk surgery)Prevention of systemic embolism from: Acute myocardial infarction Valvular heart disease Atrial fibrillation Mechanical prosthetic heart valves (2.5-3.5) IS PATIENT ON ANTICOAGULANTS? NTHROMBOPLASTIN TIME [id number] 10:37:00* Test Item Value Reference Range Interpretation Comments THROMBOPLASTIN TIME PARTIAL (test code = PTT) 34.0 seconds 25.0-36. 5 N IS PATIENT ON ANTICOAGULANTS? NCBC W/AUTO [id number] 16:41:00* Test Item Value Reference Range Interpretation Comments WHITE BLOOD CELL (test code = WBC) 2.6 K/mm3 4.5-12.5 L RED BLOOD CELL (test code = RBC) 4.28 mill/mm3 3.7-5.2 N HEMOGLOBIN (test code = HGB) 13.8 gram/dL 11.5-15.5 N HEMATOCRIT (test code = HCT) 42.6 % 36.0-46.0 N MEAN CELL VOLUME (test code = MCV) 99.5 fL 80-98 H MEAN CELL HGB (test code = MCH) 32.2 picogram 27.0-33.0 N MEAN CELL HGB CONCETRATION (test code = MCHC) 32.4 gram/dL 33.0-36. 0 L RED CELL DISTRIBUTION WIDTH (test code = RDW) 13.5 % 11.6-16. 2 N RED CELL DISTRIBUTION WIDTH SD (test code = RDW-SD) 49.2 fL 37 .0-51.0 N PLATELET COUNT (test code = PLT) 46 K/mm3 150-450 LL Results called to ENRIQUE (DR. MORA'S OFFICE)by TANGELA 06/21/18 1641Critical results verified and read back by Nurse? Y MEAN PLATELET VOLUME (test code = MPV) 10.4 fL 6.7-11.0 N NEUTROPHIL % (test code = NT%) 58.7 % 39.0-69.0 N IMMATURE GRANULOCYTE % (test code = IG%) 0.0 % 0.0-5.0 N LYMPHOCYTE % (test code = LY%) 28.8 % 25.0-55.0 N MONOCYTE % (test code = MO%) 7.0 % 0.0-10.0 N EOSINOPHIL % (test code = EO%) 4.7 % 0.0-5.0 N BASOPHIL % (test code = BA%) 0.8 % 0.0-1.0 N NUCLEATED RBC % (test code = NRBC%) 0.0 % 0-0 N NEUTROPHIL # (test code = NT#) 1.51 K/mm3 1.8-7.7 L IMMATURE GRANULOCYTE # (test code = IG#) 0.00 x10 3/uL 0-0.03 N LYMPHOCYTE # (test code = LY#) 0.74 K/mm3 1.0-5.0 L MONOCYTE # (test code = MO#) 0.18 K/mm3 0-0.8 N EOSINOPHIL # (test code = EO#) 0.12 K/mm3 0.0-0.5 N BASOPHIL # (test code = BA#) 0.02 K/mm3 0.0-0.2 N NUCLEATED RBC # (test code = NRBC#) 0.00 K/mm3 0.0-0.1 N HEPATIC FUNCTION [id number] 15:13:00* Test Item Value Reference Range Interpretation Comments TOTAL PROTEIN (test code = PROT) 8.2 gram/dL 6.4-8.2 N ALBUMIN (test code = ALB) 3.7 g/dL 3.4-5.0 N GLOBULIN (test code = GLOB) 4.5 gram/dL 2.7-4.2 H ALBUMIN/GLOBULIN RATIO (test code = A/G) 0.8 0.75-1.50 N BILIRUBIN TOTAL (test code = BILT) 1.40 mg/dL 0.0-1.0 H BILIRUBIN DIRECT (test code = BILD) 0.51 mg/dL 0.0-0.20 H SGOT/AST (test code = AST) 39 IUnit/L 15-37 H SGPT/ALT (test code = ALT) 28 IUnit/L 12-78 N ALKALINE PHOSPHATASE TOTAL (test code = ALKP) 100 IUnit/L 45-117 N Note change in reference range due to change in reagent. BASIC METABOLIC [id number] 15:01:00* Test Item Value Reference Range Interpretation Comments SODIUM (test code = NA) 141 mmol/L 136-145 N POTASSIUM (test code = K) 4.5 mmol/L 3.5-5.1 N CHLORIDE (test code = CL) 111.0 mmol/L 98-107 H CARBON DIOXIDE (test code = CO2) 26.0 mmol/L 21-32 N ANION GAP (test code = GAP) 8.5 10-20 L GLUCOSE (test code = GLU) 82 mg/dL 74-106 N BLOOD UREA NITROGEN (test code = BUN) 15 mg/dL 7-18 N GLOMERULAR FILTRATION RATE (test code = GFR) > 60 mL/min >=60 Estimated GFR by using Modified MDRD formula.Chronic kidney disease is defined as either kidney damageor GFR <60 mL/min/1.73 m2 for >3 months. CREATININE (test code = CREAT) 0.60 mg/dL 0.55-1.02 N Note change in reference range due to change in reagent. BUN/CREATININE RATIO (test code = BUN/CREA) 23.8 10-20 H CALCIUM (test code = CA) 8.8 mg/dL 8.5-10.1 N PROTHROMBIN [id number] 14:30:00* Test Item Value Reference Range Interpretation Comments PROTHROMBIN TIME PATIENT (test code = PTP) 13.6 seconds 9.0-14.0 N INTERNATIONAL NORMAL RATIO (test code = INR) 1.2 0.8-1.2 N The therapeutic range for oral anticoagulant therapy formost indications is an international normalized ratio (INR)of between 2.0 and 3.0. The recommended therapeutic INRrange for various clinical situations is listed below: Clinical Situation INR range Pulmonary e mbolism treatment (2.0-3.0)Venous thrombosis treatmentVenous thrombosis prophylaxis (high risk surgery)Prevention of systemic embolism from: Acute myocardial infarction Valvular heart disease Atrial fibrillation Mechanical prosthetic heart valves (2.5-3.5) IS PATIENT ON ANTICOAGULANTS? ADELAIDA ANTICOAGULANTS ELIQUESTHROMBOPLASTIN TIME [id number] 14:30:00* Test Item Value Reference Range Interpretation Comments THROMBOPLASTIN TIME PARTIAL (test code = PTT) 35.6 seconds 25.0-36. 5 N IS PATIENT ON ANTICOAGULANTS? ADELAIDA ANTICOAGULANTS KVNG,FRANCISCO 2018-05-26 15:55:00 RUN DATE: 05/26/18 [facility] PAGE 1 RUN TIME: 1555 Specimen Inqui ry RUN USER: INTERFACE PATIENT: CASI CHANDRA ACCT #: [id number] LOC: BOY U #: [id number] AGE/SX: 53/F ROOM: RE05/24/18GENE DR: Evangelist Mora : 69 BED: DIS: STATUS: ARCELIA WASHBURN TLOC: SPEC #: [id number] RECD: 05/24/18 STATUS: PATRICIA MEJÍA #: [id number] IVA: 05/24/[address] [facility] [address]: Evangelist Mora MD ENTERED: 05/24/18 SP TYPE: GASTRIC BX ALAN DR: ORDERED: GROSS PROCEDURES: GROSS (05/26/18-132) TISSUES: ANTRUM - COLD BX CLINICAL HISTORY COLLECTION DATE: 05/24/18 REBANDING VARICES FINAL DIAGNOSIS Antrum, biopsy: REACTIVE GASTROPATHY WITH REACTIVE REGENERATIVE EPITHELIAL CHANGES AND PATCHY MILD CHRONIC INFLAMMATION NO INTESTINAL METAPLASIA SEEN NEGATIVE FOR HELICOBACTER PYLORI NEGATIVE FOR MALIGNANCY DMW/ D [id number], [id number] MACROSCOPIC The specimen is received in formalin, label ed with the patient's name, identified as "antrum bx". It consists of mcfadden bio psy tissue measuring 0.4 cm in aggregate. An H E and a Giemsa stain will be p repared. GROSS PERFORMED AT [facility] [address] [place] [address] (P)[phone] CONTINUED ON NEXT PAGE RUN DATE: 05/26/18 [facility] PAGE 2 RUN TIME: 1555 Specimen Inquiry RUN USER: INTERFACE SPEC #: [id number] PATIENT: CASI CHANDRA #[id number] (Continued) MICROSCOPIC MICROSCOPIC PERFORMED AT [facility] All of the stains, including any controls performed, joellen enriquez. [facility] [address] [place] [address] (P)[phone] PERFORMING SITE Diagnosis performed at: [facility] [address] [place] [address] Signed SIGNATURE ON FILE Viviana Darby MD 05/26/18 1555 END OF REPORT CBC W/MANUAL DIFF 2018-05-22 14:49:00* Test Item Value Reference Range Interpretation Comments WHITE BLOOD CELL (test code = WBC) 1.5 K/mm3 4.5-12.5 L Has "Path Review" been performed on patient's currentadmission?If yes, please insert path review specimen here If not, please order "Path Review" for the followingcriteria:1/ WBC count over 40,000/mm3 or below 2,000/mm32/ Platelet counts over 1,000,000/mm3, or below 10,000/mm3, or with abnormal morphology.3/ Abnormal red cell morphology or inclusions which are severe (> 3+) , widespread, or d ifficult to classify.4/ Abnormal white blood cell morphology: Blasts present in peripheral blood of any patient as a new finding. Abnormal cells suspected of being blasts. Patients with large numbers of immature cells in peripheral blood. Unusual cells or cells not easily classified in peripheral blood.5/ Any smear in which the technologist is uncertain of the classification or the disease. RED BLOOD CELL (test code = RBC) 3.89 mill/mm3 3.7-5.2 N HEMOGLOBIN (test code = HGB) 13.1 gram/dL 11.5-15.5 N HEMATOCRIT (test code = HCT) 38.5 % 36.0-46.0 N MEAN CELL VOLUME (test code = MCV) 99.0 fL 80-98 H MEAN CELL HGB (test code = MCH) 33.7 picogram 27.0-33.0 H MEAN CELL HGB CONCETRATION (test code = MCHC) 34.0 gram/dL 33.0-36. 0 N RED CELL DISTRIBUTION WIDTH (test code = RDW) 13.3 % 11.6-16. 2 N RED CELL DISTRIBUTION WIDTH SD (test code = RDW-SD) 48.6 fL 37 .0-51.0 N PLATELET COUNT (test code = PLT) 39 K/mm3 150-450 LL Results called to CEDRIC by MARYANN 05/22/18 1414Critical results verified and read back by Nurse? Y MEAN PLATELET VOLUME (test code = MPV) 10.0 fL 6.7-11.0 N IMMATURE GRANULOCYTE % (test code = IG%) 0.7 % 0.0-5.0 N NUCLEATED RBC % (test code = NRBC%) 0.0 % 0-0 N NEUTROPHIL # (test code = NT#) 0.91 K/mm3 1.8-7.7 L IMMATURE GRANULOCYTE # (test code = IG#) 0.01 x10 3/uL 0-0.03 N LYMPHOCYTE # (test code = LY#) 0.45 K/mm3 1.0-5.0 L MONOCYTE # (test code = MO#) 0.08 K/mm3 0-0.8 N EOSINOPHIL # (test code = EO#) 0.06 K/mm3 0.0-0.5 N BASOPHIL # (test code = BA#) 0.01 K/mm3 0.0-0.2 N NUCLEATED RBC # (test code = NRBC#) 0.00 K/mm3 0.0-0.1 N MANUAL DIFF REQUIRED (test code = MDIFF) YES STAIN ACCEPTABILITY (test code = STN ACCEPTABLE) STAIN ACCEPTABLE TOTAL CELLS COUNTED (test code = TCC) 115 #CELLS SEGMENTED NEUTROPHILS (test code = SEG) 62.6 % 39-69 N BAND NEUTROPHIL (test code = BAND) 0 % 0-10 N LYMPHOCYTE (test code = LYMPH) 22.3 % 25-55 L REACTIVE LYMPH (test code = RELYMPH) 1.7 % MONOCYTE (test code = MON) 4.5 % 0-10 N EOSINOPHIL (test code = EOS) 4.9 % 0.0-5.0 N BASOPHIL (test code = BASO) 2.0 % 0-1.0 H METAMYELOCYTE (test code = META) 0 % 0-0 N MYELOCYTE (test code = MYELO) 0 % 0.0-0.0 N PROMYELOCYTE (test code = PROM) 0 % 0-0 N ELLIPTOCYTES (test code = ELL) 1+ PLATELET ESTIMATE (test code = PLTEST) DECREASED PLATELET MORPHOLOGY (test code = PLTMORPH) NORMAL IMMATURE FORMS (test code = IMMAT) 0 % CBC W/MANUAL [id number] 14:15:00* Test Item Value Reference Range Interpretation Comments WHITE BLOOD CELL (test code = WBC) 1.5 K/mm3 4.5-12.5 L Has "Path Review" been performed on patient's currentadmission?If yes, please insert path review specimen here If not, please order "Path Review" for the followingcriteria:1/ WBC count over 40,000/mm3 or below 2,000/mm32/ Platelet counts over 1,000,000/mm3, or below 10,000/mm3, or with abnormal morphology.3/ Abnormal red cell morphology or inclusions which are severe (> 3+) , widespread, or d ifficult to classify.4/ Abnormal white blood cell morphology: Blasts present in peripheral blood of any patient as a new finding. Abnormal cells suspected of being blasts. Patients with large numbers of immature cells in peripheral blood. Unusual cells or cells not easily classified in peripheral blood.5/ Any smear in which the technologist is uncertain of the classification or the disease. RED BLOOD CELL (test code = RBC) 3.89 mill/mm3 3.7-5.2 N HEMOGLOBIN (test code = HGB) 13.1 gram/dL 11.5-15.5 N HEMATOCRIT (test code = HCT) 38.5 % 36.0-46.0 N MEAN CELL VOLUME (test code = MCV) 99.0 fL 80-98 H MEAN CELL HGB (test code = MCH) 33.7 picogram 27.0-33.0 H MEAN CELL HGB CONCETRATION (test code = MCHC) 34.0 gram/dL 33.0-36. 0 N RED CELL DISTRIBUTION WIDTH (test code = RDW) 13.3 % 11.6-16. 2 N RED CELL DISTRIBUTION WIDTH SD (test code = RDW-SD) 48.6 fL 37 .0-51.0 N PLATELET COUNT (test code = PLT) 39 K/mm3 150-450 LL Results called to CEDRIC by MARYANN 05/22/18 1414Critical results verified and read back by Nurse? Y MEAN PLATELET VOLUME (test code = MPV) 10.0 fL 6.7-11.0 N IMMATURE GRANULOCYTE % (test code = IG%) 0.7 % 0.0-5.0 N NUCLEATED RBC % (test code = NRBC%) 0.0 % 0-0 N NEUTROPHIL # (test code = NT#) 0.91 K/mm3 1.8-7.7 L IMMATURE GRANULOCYTE # (test code = IG#) 0.01 x10 3/uL 0-0.03 N LYMPHOCYTE # (test code = LY#) 0.45 K/mm3 1.0-5.0 L MONOCYTE # (test code = MO#) 0.08 K/mm3 0-0.8 N EOSINOPHIL # (test code = EO#) 0.06 K/mm3 0.0-0.5 N BASOPHIL # (test code = BA#) 0.01 K/mm3 0.0-0.2 N NUCLEATED RBC # (test code = NRBC#) 0.00 K/mm3 0.0-0.1 N MANUAL DIFF REQUIRED (test code = MDIFF) YES STAIN ACCEPTABILITY (test code = STN ACCEPTABLE) TOTAL CELLS COUNTED (test code = TCC) #CELLS SEGMENTED NEUTROPHILS (test code = SEG) % 39-69 LYMPHOCYTE (test code = LYMPH) % 25-55 MONOCYTE (test code = MON) % 0-10 EOSINOPHIL (test code = EOS) % 0.0-5.0 CABOT RINGS (test code = CAB) MORPHOLOGY COMMENT (test code = MOC) PLATELET ESTIMATE (test code = PLTEST) PLATELET MORPHOLOGY (test code = PLTMORPH) CBC W/MANUAL [id number] 14:15:00* Test Item Value Reference Range Interpretation Comments WHITE BLOOD CELL (test code = WBC) 1.5 K/mm3 4.5-12.5 L Has "Path Review" been performed on patient's currentadmission?If yes, please insert path review specimen here If not, please order "Path Review" for the followingcriteria:1/ WBC count over 40,000/mm3 or below 2,000/mm32/ Platelet counts over 1,000,000/mm3, or below 10,000/mm3, or with abnormal morphology.3/ Abnormal red cell morphology or inclusions which are severe (> 3+) , widespread, or d ifficult to classify.4/ Abnormal white blood cell morphology: Blasts present in peripheral blood of any patient as a new finding. Abnormal cells suspected of being blasts. Patients with large numbers of immature cells in peripheral blood. Unusual cells or cells not easily classified in peripheral blood.5/ Any smear in which the technologist is uncertain of the classification or the disease. RED BLOOD CELL (test code = RBC) 3.89 mill/mm3 3.7-5.2 N HEMOGLOBIN (test code = HGB) 13.1 gram/dL 11.5-15.5 N HEMATOCRIT (test code = HCT) 38.5 % 36.0-46.0 N MEAN CELL VOLUME (test code = MCV) 99.0 fL 80-98 H MEAN CELL HGB (test code = MCH) 33.7 picogram 27.0-33.0 H MEAN CELL HGB CONCETRATION (test code = MCHC) 34.0 gram/dL 33.0-36. 0 N RED CELL DISTRIBUTION WIDTH (test code = RDW) 13.3 % 11.6-16. 2 N RED CELL DISTRIBUTION WIDTH SD (test code = RDW-SD) 48.6 fL 37 .0-51.0 N PLATELET COUNT (test code = PLT) 39 K/mm3 150-450 LL Results called to CEDRIC by MARYANN 05/22/18 1414Critical results verified and read back by Nurse? Y MEAN PLATELET VOLUME (test code = MPV) 10.0 fL 6.7-11.0 N IMMATURE GRANULOCYTE % (test code = IG%) 0.7 % 0.0-5.0 N NUCLEATED RBC % (test code = NRBC%) 0.0 % 0-0 N NEUTROPHIL # (test code = NT#) 0.91 K/mm3 1.8-7.7 L IMMATURE GRANULOCYTE # (test code = IG#) 0.01 x10 3/uL 0-0.03 N LYMPHOCYTE # (test code = LY#) 0.45 K/mm3 1.0-5.0 L MONOCYTE # (test code = MO#) 0.08 K/mm3 0-0.8 N EOSINOPHIL # (test code = EO#) 0.06 K/mm3 0.0-0.5 N BASOPHIL # (test code = BA#) 0.01 K/mm3 0.0-0.2 N NUCLEATED RBC # (test code = NRBC#) 0.00 K/mm3 0.0-0.1 N MANUAL DIFF REQUIRED (test code = MDIFF) YES STAIN ACCEPTABILITY (test code = STN ACCEPTABLE) TOTAL CELLS COUNTED (test code = TCC) #CELLS SEGMENTED NEUTROPHILS (test code = SEG) % 39-69 LYMPHOCYTE (test code = LYMPH) % 25-55 MONOCYTE (test code = MON) % 0-10 EOSINOPHIL (test code = EOS) % 0.0-5.0 MORPHOLOGY COMMENT (test code = MOC) PLATELET ESTIMATE (test code = PLTEST) PLATELET MORPHOLOGY (test code = PLTMORPH) CBC W/MANUAL [id number] 14:15:00* Test Item Value Reference Range Interpretation Comments WHITE BLOOD CELL (test code = WBC) 1.5 K/mm3 4.5-12.5 L Has "Path Review" been performed on patient's currentadmission?If yes, please insert path review specimen here If not, please order "Path Review" for the followingcriteria:1/ WBC count over 40,000/mm3 or below 2,000/mm32/ Platelet counts over 1,000,000/mm3, or below 10,000/mm3, or with abnormal morphology.3/ Abnormal red cell morphology or inclusions which are severe (> 3+) , widespread, or d ifficult to classify.4/ Abnormal white blood cell morphology: Blasts present in peripheral blood of any patient as a new finding. Abnormal cells suspected of being blasts. Patients with large numbers of immature cells in peripheral blood. Unusual cells or cells not easily classified in peripheral blood.5/ Any smear in which the technologist is uncertain of the classification or the disease. RED BLOOD CELL (test code = RBC) 3.89 mill/mm3 3.7-5.2 N HEMOGLOBIN (test code = HGB) 13.1 gram/dL 11.5-15.5 N HEMATOCRIT (test code = HCT) 38.5 % 36.0-46.0 N MEAN CELL VOLUME (test code = MCV) 99.0 fL 80-98 H MEAN CELL HGB (test code = MCH) 33.7 picogram 27.0-33.0 H MEAN CELL HGB CONCETRATION (test code = MCHC) 34.0 gram/dL 33.0-36. 0 N RED CELL DISTRIBUTION WIDTH (test code = RDW) 13.3 % 11.6-16. 2 N RED CELL DISTRIBUTION WIDTH SD (test code = RDW-SD) 48.6 fL 37 .0-51.0 N PLATELET COUNT (test code = PLT) 39 K/mm3 150-450 LL Results called to CEDRIC by MARYANN 05/22/18 1414Critical results verified and read back by Nurse? Y MEAN PLATELET VOLUME (test code = MPV) 10.0 fL 6.7-11.0 N IMMATURE GRANULOCYTE % (test code = IG%) 0.7 % 0.0-5.0 N NUCLEATED RBC % (test code = NRBC%) 0.0 % 0-0 N NEUTROPHIL # (test code = NT#) 0.91 K/mm3 1.8-7.7 L IMMATURE GRANULOCYTE # (test code = IG#) 0.01 x10 3/uL 0-0.03 N LYMPHOCYTE # (test code = LY#) 0.45 K/mm3 1.0-5.0 L MONOCYTE # (test code = MO#) 0.08 K/mm3 0-0.8 N EOSINOPHIL # (test code = EO#) 0.06 K/mm3 0.0-0.5 N BASOPHIL # (test code = BA#) 0.01 K/mm3 0.0-0.2 N NUCLEATED RBC # (test code = NRBC#) 0.00 K/mm3 0.0-0.1 N MANUAL DIFF REQUIRED (test code = MDIFF) YES STAIN ACCEPTABILITY (test code = STN ACCEPTABLE) TOTAL CELLS COUNTED (test code = TCC) #CELLS SEGMENTED NEUTROPHILS (test code = SEG) % 39-69 LYMPHOCYTE (test code = LYMPH) % 25-55 MONOCYTE (test code = MON) % 0-10 MORPHOLOGY COMMENT (test code = MOC) PLATELET ESTIMATE (test code = PLTEST) PLATELET MORPHOLOGY (test code = PLTMORPH) CBC W/MANUAL [id number] 14:14:00* Test Item Value Reference Range Interpretation Comments WHITE BLOOD CELL (test code = WBC) 1.5 K/mm3 4.5-12.5 L Has "Path Review" been performed on patient's currentadmission?If yes, please insert path review specimen here If not, please order "Path Review" for the followingcriteria:1/ WBC count over 40,000/mm3 or below 2,000/mm32/ Platelet counts over 1,000,000/mm3, or below 10,000/mm3, or with abnormal morphology.3/ Abnormal red cell morphology or inclusions which are severe (> 3+) , widespread, or d ifficult to classify.4/ Abnormal white blood cell morphology: Blasts present in peripheral blood of any patient as a new finding. Abnormal cells suspected of being blasts. Patients with large numbers of immature cells in peripheral blood. Unusual cells or cells not easily classified in peripheral blood.5/ Any smear in which the technologist is uncertain of the classification or the disease. RED BLOOD CELL (test code = RBC) 3.89 mill/mm3 3.7-5.2 N HEMOGLOBIN (test code = HGB) 13.1 gram/dL 11.5-15.5 N HEMATOCRIT (test code = HCT) 38.5 % 36.0-46.0 N MEAN CELL VOLUME (test code = MCV) 99.0 fL 80-98 H MEAN CELL HGB (test code = MCH) 33.7 picogram 27.0-33.0 H MEAN CELL HGB CONCETRATION (test code = MCHC) 34.0 gram/dL 33.0-36. 0 N RED CELL DISTRIBUTION WIDTH (test code = RDW) 13.3 % 11.6-16. 2 N RED CELL DISTRIBUTION WIDTH SD (test code = RDW-SD) 48.6 fL 37 .0-51.0 N PLATELET COUNT (test code = PLT) 39 K/mm3 150-450 LL Results called to CEDRIC by MARYANN 05/22/18 1414Critical results verified and read back by Nurse? Y MEAN PLATELET VOLUME (test code = MPV) 10.0 fL 6.7-11.0 N IMMATURE GRANULOCYTE % (test code = IG%) 0.7 % 0.0-5.0 N NUCLEATED RBC % (test code = NRBC%) 0.0 % 0-0 N NEUTROPHIL # (test code = NT#) 0.91 K/mm3 1.8-7.7 L IMMATURE GRANULOCYTE # (test code = IG#) 0.01 x10 3/uL 0-0.03 N LYMPHOCYTE # (test code = LY#) 0.45 K/mm3 1.0-5.0 L MONOCYTE # (test code = MO#) 0.08 K/mm3 0-0.8 N EOSINOPHIL # (test code = EO#) 0.06 K/mm3 0.0-0.5 N BASOPHIL # (test code = BA#) 0.01 K/mm3 0.0-0.2 N NUCLEATED RBC # (test code = NRBC#) 0.00 K/mm3 0.0-0.1 N MANUAL DIFF REQUIRED (test code = MDIFF) YES STAIN ACCEPTABILITY (test code = STN ACCEPTABLE) TOTAL CELLS COUNTED (test code = TCC) #CELLS SEGMENTED NEUTROPHILS (test code = SEG) % 39-69 LYMPHOCYTE (test code = LYMPH) % 25-55 MONOCYTE (test code = MON) % 0-10 EOSINOPHIL (test code = EOS) % 0.0-5.0 CABOT RINGS (test code = CAB) MORPHOLOGY COMMENT (test code = MOC) PLATELET ESTIMATE (test code = PLTEST) PLATELET MORPHOLOGY (test code = PLTMORPH) CBC W/MANUAL [id number] 14:14:00* Test Item Value Reference Range Interpretation Comments WHITE BLOOD CELL (test code = WBC) 1.5 K/mm3 4.5-12.5 L Has "Path Review" been performed on patient's currentadmission?If yes, please insert path review specimen here If not, please order "Path Review" for the followingcriteria:1/ WBC count over 40,000/mm3 or below 2,000/mm32/ Platelet counts over 1,000,000/mm3, or below 10,000/mm3, or with abnormal morphology.3/ Abnormal red cell morphology or inclusions which are severe (> 3+) , widespread, or d ifficult to classify.4/ Abnormal white blood cell morphology: Blasts present in peripheral blood of any patient as a new finding. Abnormal cells suspected of being blasts. Patients with large numbers of immature cells in peripheral blood. Unusual cells or cells not easily classified in peripheral blood.5/ Any smear in which the technologist is uncertain of the classification or the disease. RED BLOOD CELL (test code = RBC) 3.89 mill/mm3 3.7-5.2 N HEMOGLOBIN (test code = HGB) 13.1 gram/dL 11.5-15.5 N HEMATOCRIT (test code = HCT) 38.5 % 36.0-46.0 N MEAN CELL VOLUME (test code = MCV) 99.0 fL 80-98 H MEAN CELL HGB (test code = MCH) 33.7 picogram 27.0-33.0 H MEAN CELL HGB CONCETRATION (test code = MCHC) 34.0 gram/dL 33.0-36. 0 N RED CELL DISTRIBUTION WIDTH (test code = RDW) 13.3 % 11.6-16. 2 N RED CELL DISTRIBUTION WIDTH SD (test code = RDW-SD) 48.6 fL 37 .0-51.0 N PLATELET COUNT (test code = PLT) 39 K/mm3 150-450 LL Results called to CEDRIC by MARYANN 05/22/18 1414Critical results verified and read back by Nurse? Y MEAN PLATELET VOLUME (test code = MPV) 10.0 fL 6.7-11.0 N IMMATURE GRANULOCYTE % (test code = IG%) 0.7 % 0.0-5.0 N NUCLEATED RBC % (test code = NRBC%) 0.0 % 0-0 N NEUTROPHIL # (test code = NT#) 0.91 K/mm3 1.8-7.7 L IMMATURE GRANULOCYTE # (test code = IG#) 0.01 x10 3/uL 0-0.03 N LYMPHOCYTE # (test code = LY#) 0.45 K/mm3 1.0-5.0 L MONOCYTE # (test code = MO#) 0.08 K/mm3 0-0.8 N EOSINOPHIL # (test code = EO#) 0.06 K/mm3 0.0-0.5 N BASOPHIL # (test code = BA#) 0.01 K/mm3 0.0-0.2 N NUCLEATED RBC # (test code = NRBC#) 0.00 K/mm3 0.0-0.1 N MANUAL DIFF REQUIRED (test code = MDIFF) YES STAIN ACCEPTABILITY (test code = STN ACCEPTABLE) TOTAL CELLS COUNTED (test code = TCC) #CELLS SEGMENTED NEUTROPHILS (test code = SEG) % 39-69 LYMPHOCYTE (test code = LYMPH) % 25-55 MONOCYTE (test code = MON) % 0-10 EOSINOPHIL (test code = EOS) % 0.0-5.0 CABOT RINGS (test code = CAB) MORPHOLOGY COMMENT (test code = MOC) PLATELET ESTIMATE (test code = PLTEST) PLATELET MORPHOLOGY (test code = PLTMORPH) BASIC METABOLIC [id number] 12:18:00* Test Item Value Reference Range Interpretation Comments SODIUM (test code = NA) 142 mmol/L 136-145 N POTASSIUM (test code = K) 4.3 mmol/L 3.5-5.1 N CHLORIDE (test code = CL) 109.0 mmol/L 98-107 H CARBON DIOXIDE (test code = CO2) 27.0 mmol/L 21-32 N ANION GAP (test code = GAP) 10.3 10-20 N GLUCOSE (test code = GLU) 84 mg/dL 74-106 N BLOOD UREA NITROGEN (test code = BUN) 14 mg/dL 7-18 N GLOMERULAR FILTRATION RATE (test code = GFR) > 60 mL/min >=60 Estimated GFR by using Modified MDRD formula.Chronic kidney disease is defined as either kidney damageor GFR <60 mL/min/1.73 m2 for >3 months. CREATININE (test code = CREAT) 0.60 mg/dL 0.55-1.02 N Note change in reference range due to change in reagent. BUN/CREATININE RATIO (test code = BUN/CREA) 23.3 10-20 H CALCIUM (test code = CA) 8.7 mg/dL 8.5-10.1 N HEPATIC FUNCTION [id number] 12:18:00* Test Item Value Reference Range Interpretation Comments TOTAL PROTEIN (test code = PROT) 7.9 gram/dL 6.4-8.2 N ALBUMIN (test code = ALB) 3.4 g/dL 3.4-5.0 N GLOBULIN (test code = GLOB) 4.5 gram/dL 2.7-4.2 H ALBUMIN/GLOBULIN RATIO (test code = A/G) 0.8 0.75-1.50 N BILIRUBIN TOTAL (test code = BILT) 1.00 mg/dL 0.0-1.0 N BILIRUBIN DIRECT (test code = BILD) 0.38 mg/dL 0.0-0.20 H SGOT/AST (test code = AST) 33 IUnit/L 15-37 N SGPT/ALT (test code = ALT) 32 IUnit/L 12-78 N ALKALINE PHOSPHATASE TOTAL (test code = ALKP) 103 IUnit/L 45-117 N Note change in reference range due to change in reagent. BASIC METABOLIC [id number] 12:16:00* Test Item Value Reference Range Interpretation Comments SODIUM (test code = NA) 142 mmol/L 136-145 N POTASSIUM (test code = K) 4.3 mmol/L 3.5-5.1 N CHLORIDE (test code = CL) 109.0 mmol/L 98-107 H CARBON DIOXIDE (test code = CO2) mmol/L 21-32 ANION GAP (test code = GAP) 10-20 GLUCOSE (test code = GLU) mg/dL 74-106 BLOOD UREA NITROGEN (test code = BUN) mg/dL 7-18 GLOMERULAR FILTRATION RATE (test code = GFR) mL/min >=60 CREATININE (test code = CREAT) mg/dL 0.55-1.02 BUN/CREATININE RATIO (test code = BUN/CREA) 10-20 CALCIUM (test code = CA) mg/dL 8.5-10.1 HEPATIC FUNCTION [id number] 12:16:00* Test Item Value Reference Range Interpretation Comments TOTAL PROTEIN (test code = PROT) gram/dL 6.4-8.2 ALBUMIN (test code = ALB) g/dL 3.4-5.0 GLOBULIN (test code = GLOB) gram/dL 2.7-4.2 ALBUMIN/GLOBULIN RATIO (test code = A/G) 0.75-1.50 BILIRUBIN TOTAL (test code = BILT) mg/dL 0.0-1.0 BILIRUBIN DIRECT (test code = BILD) mg/dL 0.0-0.20 SGOT/AST (test code = AST) IUnit/L 15-37 SGPT/ALT (test code = ALT) IUnit/L 12-78 ALKALINE PHOSPHATASE TOTAL (test code = ALKP) IUnit/L 45-117 PROTHROMBIN [id number] 11:48:00* Test Item Value Reference Range Interpretation Comments PROTHROMBIN TIME PATIENT (test code = PTP) 13.1 seconds 9.0-14.0 N INTERNATIONAL NORMAL RATIO (test code = INR) 1.1 0.8-1.2 N The therapeutic range for oral anticoagulant therapy formost indications is an international normalized ratio (INR)of between 2.0 and 3.0. The recommended therapeutic INRrange for various clinical situations is listed below: Clinical Situation INR range Pulmonary e mbolism treatment (2.0-3.0)Venous thrombosis treatmentVenous thrombosis prophylaxis (high risk surgery)Prevention of systemic embolism from: Acute myocardial infarction Valvular heart disease Atrial fibrillation Mechanical prosthetic heart valves (2.5-3.5) IS PATIENT ON ANTICOAGULANTS? NTHROMBOPLASTIN TIME [id number] 11:48:00* Test Item Value Reference Range Interpretation Comments THROMBOPLASTIN TIME PARTIAL (test code = PTT) 31.4 seconds 25.0-36. 5 N IS PATIENT ON ANTICOAGULANTS? ANALILIA,[id number] 13:01:00 RUN DATE: 05/01/18 [facility] PAGE 1 RUN TIME: 1301 Specimen Inqui ry RUN USER: INTERFACE PATIENT: CASI CHANDRA ACCT #: [id number] LOC: Arsenio U #: [id number] AGE/SX: 53/F ROOM: RE04/27/18[facility] DR: Evangelist Mora : 69 BED: DIS: STATUS: PRE SDC TLOC: SPEC #: [id number] RECD: 04/28/18 STATUS: PATRICIA [facility] #: [id number] IVA: 04/27/18-[address] [facility] [address]: Evangelist Mora MD ENTERED: 04/28/18 SP TYPE: GASTRIC BX OT DR: ORDERED: GROSS PROCEDURES: GROSS (05/01/18-1150) TISSUES: ANTRUM - BX CLINICAL HISTORY COLLECTION DATE: 04/27/18 ABDOMINAL PAIN, NAUSEA FINAL DIAGNOSIS Gastric antrum, biopsy: SUGGESTIVE OF MILD REACTIVE GASTROPATHY NEGATIVE FOR INTESTINAL METAPLA ARTURO NEGATIVE FOR HELICOBACTER ORGANISMS NEGATIVE FOR MALIGNANCY RRB/sm D 62497, 62797 MACROSCOPIC The specimen is recei [place] in formalin, labeled with the patient's name, identified as "antrum", and consists of light mcfadden biopsy tissue measuring 0.2 cm in aggregate, submitted for H E and giemsa stains. GROSS PERFORMED AT [facility] [address] [place] [address] (P)[phone] CONTINUED ON NEXT PAGE RUN DATE: 05/01/18 [facility] P AGE 4 RUN TIME: 1301 Specimen Inquiry RUN USER: INTERFACE SPEC #: [id number] PATIENT: CASI CHANDRA #[id number] (Continued) MICROSCOPIC MICROSCOPIC P ERFORMED AT [facility] All of the stains, including any controls p erformed, stain appropriately. [facility] [address] [place] [address] (P)[phone] PERFORMING SITE Diagnosis perf ormed at: [facility], [place] [address] [place] [address] Signed SIGNATURE ON Lisset Barone 05/01/18 1301 END OF REPORT CBC W/MANUAL [id number] 09:12:00* Test Item Value Reference Range Interpretation Comments WHITE BLOOD CELL (test code = WBC) 1.6 K/mm3 4.5-12.5 L RESULT VERIFIED BY REPEAT ANALYSISHas "Path Review" been performed on patient's currentadmission?If yes, please insert path review specimen here If not, please order "Path Review" for the followingcriteria:1/ WBC count over 40,000/mm3 or below 2,000/mm32/ Platelet counts over 1,000,000/mm3, or below 10,000/mm3, or with abnormal morphology.3/ Abnormal red cell morphology or inclusions which are severe (> 3+) , widespread, or difficult to classify.4/ Abnormal white blood cell morphology: Blasts present in peripheral blood of any patient as a new finding. Abnormal cells suspected of being blasts. Patients with large numbers of immature cells in peripheral blood. Unusual cells or cells not easily classified in peripheral blood.5/ Any smear in which the technologist is uncertain of the classification or the disease. RED BLOOD CELL (test code = RBC) 4.11 mill/mm3 3.7-5.2 N HEMOGLOBIN (test code = HGB) 13.7 gram/dL 11.5-15.5 N HEMATOCRIT (test code = HCT) 41.7 % 36.0-46.0 N MEAN CELL VOLUME (test code = MCV) 101.5 fL 80-98 H MEAN CELL HGB (test code = MCH) 33.3 picogram 27.0-33.0 H MEAN CELL HGB CONCETRATION (test code = MCHC) 32.9 gram/dL 33.0-36. 0 L RED CELL DISTRIBUTION WIDTH (test code = RDW) 13.3 % 11.6-16. 2 N RED CELL DISTRIBUTION WIDTH SD (test code = RDW-SD) 50.3 fL 37 .0-51.0 N PLATELET COUNT (test code = PLT) 44 K/mm3 150-450 LL MEAN PLATELET VOLUME (test code = MPV) 10.6 fL 6.7-11.0 N IMMATURE GRANULOCYTE % (test code = IG%) 0.0 % 0.0-5.0 N NUCLEATED RBC % (test code = NRBC%) 0.0 % 0-0 N NEUTROPHIL # (test code = NT#) 0.92 K/mm3 1.8-7.7 L IMMATURE GRANULOCYTE # (test code = IG#) 0.00 x10 3/uL 0-0.03 N LYMPHOCYTE # (test code = LY#) 0.44 K/mm3 1.0-5.0 L MONOCYTE # (test code = MO#) 0.11 K/mm3 0-0.8 N EOSINOPHIL # (test code = EO#) 0.10 K/mm3 0.0-0.5 N BASOPHIL # (test code = BA#) 0.01 K/mm3 0.0-0.2 N NUCLEATED RBC # (test code = NRBC#) 0.00 K/mm3 0.0-0.1 N MANUAL DIFF REQUIRED (test code = MDIFF) YES STAIN ACCEPTABILITY (test code = STN ACCEPTABLE) STAIN ACCEPTABLE TOTAL CELLS COUNTED (test code = TCC) 116 #CELLS SEGMENTED NEUTROPHILS (test code = SEG) 64.6 % 39-69 N BAND NEUTROPHIL (test code = BAND) 0 % 0-10 N LYMPHOCYTE (test code = LYMPH) 27.6 % 25-55 N REACTIVE LYMPH (test code = RELYMPH) 1.7 % MONOCYTE (test code = MON) 4.3 % 0-10 N EOSINOPHIL (test code = EOS) 0.9 % 0.0-5.0 N BASOPHIL (test code = BASO) 0.9 % 0-1.0 N METAMYELOCYTE (test code = META) 0 % 0-0 N MYELOCYTE (test code = MYELO) 0 % 0.0-0.0 N PROMYELOCYTE (test code = PROM) 0 % 0-0 N MACROCYTOSIS (test code = MACR) 1+ PLATELET ESTIMATE (test code = PLTEST) DECREASED PLATELET MORPHOLOGY (test code = PLTMORPH) NORMAL IMMATURE FORMS (test code = IMMAT) 0 % PATHOLOGISTS [id number] 09:12:00* Test Item Value Reference Range Interpretation Comments PATHOLOGISTS FINDINGS (test code = PATH) PATH NOTES Reviewed by Pathologist, REVIEWED BY VIVIANA DARBY M.D.04/25/18REVIEWED.LEUKOPENIAMACRCYTOCES RED BLOOD CELLSTHROMBOCYTOPENIA CBC W/MANUAL [id number] 14:47:00* Test Item Value Reference Range Interpretation Comments WHITE BLOOD CELL (test code = WBC) 1.6 K/mm3 4.5-12.5 L RESULT VERIFIED BY REPEAT ANALYSISHas "Path Review" been performed on patient's currentadmission?If yes, please insert path review specimen here If not, please order "Path Review" for the followingcriteria:1/ WBC count over 40,000/mm3 or below 2,000/mm32/ Platelet counts over 1,000,000/mm3, or below 10,000/mm3, or with abnormal morphology.3/ Abnormal red cell morphology or inclusions which are severe (> 3+) , widespread, or difficult to classify.4/ Abnormal white blood cell morphology: Blasts present in peripheral blood of any patient as a new finding. Abnormal cells suspected of being blasts. Patients with large numbers of immature cells in peripheral blood. Unusual cells or cells not easily classified in peripheral blood.5/ Any smear in which the technologist is uncertain of the classification or the disease. RED BLOOD CELL (test code = RBC) 4.11 mill/mm3 3.7-5.2 N HEMOGLOBIN (test code = HGB) 13.7 gram/dL 11.5-15.5 N HEMATOCRIT (test code = HCT) 41.7 % 36.0-46.0 N MEAN CELL VOLUME (test code = MCV) 101.5 fL 80-98 H MEAN CELL HGB (test code = MCH) 33.3 picogram 27.0-33.0 H MEAN CELL HGB CONCETRATION (test code = MCHC) 32.9 gram/dL 33.0-36. 0 L RED CELL DISTRIBUTION WIDTH (test code = RDW) 13.3 % 11.6-16. 2 N RED CELL DISTRIBUTION WIDTH SD (test code = RDW-SD) 50.3 fL 37 .0-51.0 N PLATELET COUNT (test code = PLT) 44 K/mm3 150-450 LL MEAN PLATELET VOLUME (test code = MPV) 10.6 fL 6.7-11.0 N IMMATURE GRANULOCYTE % (test code = IG%) 0.0 % 0.0-5.0 N NUCLEATED RBC % (test code = NRBC%) 0.0 % 0-0 N NEUTROPHIL # (test code = NT#) 0.92 K/mm3 1.8-7.7 L IMMATURE GRANULOCYTE # (test code = IG#) 0.00 x10 3/uL 0-0.03 N LYMPHOCYTE # (test code = LY#) 0.44 K/mm3 1.0-5.0 L MONOCYTE # (test code = MO#) 0.11 K/mm3 0-0.8 N EOSINOPHIL # (test code = EO#) 0.10 K/mm3 0.0-0.5 N BASOPHIL # (test code = BA#) 0.01 K/mm3 0.0-0.2 N NUCLEATED RBC # (test code = NRBC#) 0.00 K/mm3 0.0-0.1 N MANUAL DIFF REQUIRED (test code = MDIFF) YES STAIN ACCEPTABILITY (test code = STN ACCEPTABLE) STAIN ACCEPTABLE TOTAL CELLS COUNTED (test code = TCC) 116 #CELLS SEGMENTED NEUTROPHILS (test code = SEG) 64.6 % 39-69 N BAND NEUTROPHIL (test code = BAND) 0 % 0-10 N LYMPHOCYTE (test code = LYMPH) 27.6 % 25-55 N REACTIVE LYMPH (test code = RELYMPH) 1.7 % MONOCYTE (test code = MON) 4.3 % 0-10 N EOSINOPHIL (test code = EOS) 0.9 % 0.0-5.0 N BASOPHIL (test code = BASO) 0.9 % 0-1.0 N METAMYELOCYTE (test code = META) 0 % 0-0 N MYELOCYTE (test code = MYELO) 0 % 0.0-0.0 N PROMYELOCYTE (test code = PROM) 0 % 0-0 N MACROCYTOSIS (test code = MACR) 1+ PLATELET ESTIMATE (test code = PLTEST) DECREASED PLATELET MORPHOLOGY (test code = PLTMORPH) NORMAL IMMATURE FORMS (test code = IMMAT) 0 % PATHOLOGISTS [id number] 14:47:00* Test Item Value Reference Range Interpretation Comments PATHOLOGISTS FINDINGS (test code = PATH) PATH NOTES CBC W/MANUAL [id number] 12:23:00* Test Item Value Reference Range Interpretation Comments WHITE BLOOD CELL (test code = WBC) 1.6 K/mm3 4.5-12.5 L RESULT VERIFIED BY REPEAT ANALYSISHas "Path Review" been performed on patient's currentadmission?If yes, please insert path review specimen here If not, please order "Path Review" for the followingcriteria:1/ WBC count over 40,000/mm3 or below 2,000/mm32/ Platelet counts over 1,000,000/mm3, or below 10,000/mm3, or with abnormal morphology.3/ Abnormal red cell morphology or inclusions which are severe (> 3+) , widespread, or difficult to classify.4/ Abnormal white blood cell morphology: Blasts present in peripheral blood of any patient as a new finding. Abnormal cells suspected of being blasts. Patients with large numbers of immature cells in peripheral blood. Unusual cells or cells not easily classified in peripheral blood.5/ Any smear in which the technologist is uncertain of the classification or the disease. RED BLOOD CELL (test code = RBC) 4.11 mill/mm3 3.7-5.2 N HEMOGLOBIN (test code = HGB) 13.7 gram/dL 11.5-15.5 N HEMATOCRIT (test code = HCT) 41.7 % 36.0-46.0 N MEAN CELL VOLUME (test code = MCV) 101.5 fL 80-98 H MEAN CELL HGB (test code = MCH) 33.3 picogram 27.0-33.0 H MEAN CELL HGB CONCETRATION (test code = MCHC) 32.9 gram/dL 33.0-36. 0 L RED CELL DISTRIBUTION WIDTH (test code = RDW) 13.3 % 11.6-16. 2 N RED CELL DISTRIBUTION WIDTH SD (test code = RDW-SD) 50.3 fL 37 .0-51.0 N PLATELET COUNT (test code = PLT) 44 K/mm3 150-450 LL MEAN PLATELET VOLUME (test code = MPV) 10.6 fL 6.7-11.0 N IMMATURE GRANULOCYTE % (test code = IG%) 0.0 % 0.0-5.0 N NUCLEATED RBC % (test code = NRBC%) 0.0 % 0-0 N NEUTROPHIL # (test code = NT#) 0.92 K/mm3 1.8-7.7 L IMMATURE GRANULOCYTE # (test code = IG#) 0.00 x10 3/uL 0-0.03 N LYMPHOCYTE # (test code = LY#) 0.44 K/mm3 1.0-5.0 L MONOCYTE # (test code = MO#) 0.11 K/mm3 0-0.8 N EOSINOPHIL # (test code = EO#) 0.10 K/mm3 0.0-0.5 N BASOPHIL # (test code = BA#) 0.01 K/mm3 0.0-0.2 N NUCLEATED RBC # (test code = NRBC#) 0.00 K/mm3 0.0-0.1 N MANUAL DIFF REQUIRED (test code = MDIFF) YES STAIN ACCEPTABILITY (test code = STN ACCEPTABLE) TOTAL CELLS COUNTED (test code = TCC) #CELLS SEGMENTED NEUTROPHILS (test code = SEG) % 39-69 LYMPHOCYTE (test code = LYMPH) % 25-55 MONOCYTE (test code = MON) % 0-10 MORPHOLOGY COMMENT (test code = MOC) PLATELET ESTIMATE (test code = PLTEST) PLATELET MORPHOLOGY (test code = PLTMORPH) PATHOLOGISTS [id number] 12:23:00* Test Item Value Reference Range Interpretation Comments PATHOLOGISTS FINDINGS (test code = PATH) PATH NOTES CBC W/MANUAL [id number] 12:13:00* Test Item Value Reference Range Interpretation Comments WHITE BLOOD CELL (test code = WBC) 1.6 K/mm3 4.5-12.5 L RESULT VERIFIED BY REPEAT ANALYSISHas "Path Review" been performed on patient's currentadmission?If yes, please insert path review specimen here If not, please order "Path Review" for the followingcriteria:1/ WBC count over 40,000/mm3 or below 2,000/mm32/ Platelet counts over 1,000,000/mm3, or below 10,000/mm3, or with abnormal morphology.3/ Abnormal red cell morphology or inclusions which are severe (> 3+) , widespread, or difficult to classify.4/ Abnormal white blood cell morphology: Blasts present in peripheral blood of any patient as a new finding. Abnormal cells suspected of being blasts. Patients with large numbers of immature cells in peripheral blood. Unusual cells or cells not easily classified in peripheral blood.5/ Any smear in which the technologist is uncertain of the classification or the disease. RED BLOOD CELL (test code = RBC) 4.11 mill/mm3 3.7-5.2 N HEMOGLOBIN (test code = HGB) 13.7 gram/dL 11.5-15.5 N HEMATOCRIT (test code = HCT) 41.7 % 36.0-46.0 N MEAN CELL VOLUME (test code = MCV) 101.5 fL 80-98 H MEAN CELL HGB (test code = MCH) 33.3 picogram 27.0-33.0 H MEAN CELL HGB CONCETRATION (test code = MCHC) 32.9 gram/dL 33.0-36. 0 L RED CELL DISTRIBUTION WIDTH (test code = RDW) 13.3 % 11.6-16. 2 N RED CELL DISTRIBUTION WIDTH SD (test code = RDW-SD) 50.3 fL 37 .0-51.0 N PLATELET COUNT (test code = PLT) 44 K/mm3 150-450 LL MEAN PLATELET VOLUME (test code = MPV) 10.6 fL 6.7-11.0 N IMMATURE GRANULOCYTE % (test code = IG%) 0.0 % 0.0-5.0 N NUCLEATED RBC % (test code = NRBC%) 0.0 % 0-0 N NEUTROPHIL # (test code = NT#) 0.92 K/mm3 1.8-7.7 L IMMATURE GRANULOCYTE # (test code = IG#) 0.00 x10 3/uL 0-0.03 N LYMPHOCYTE # (test code = LY#) 0.44 K/mm3 1.0-5.0 L MONOCYTE # (test code = MO#) 0.11 K/mm3 0-0.8 N EOSINOPHIL # (test code = EO#) 0.10 K/mm3 0.0-0.5 N BASOPHIL # (test code = BA#) 0.01 K/mm3 0.0-0.2 N NUCLEATED RBC # (test code = NRBC#) 0.00 K/mm3 0.0-0.1 N MANUAL DIFF REQUIRED (test code = MDIFF) YES STAIN ACCEPTABILITY (test code = STN ACCEPTABLE) TOTAL CELLS COUNTED (test code = TCC) #CELLS SEGMENTED NEUTROPHILS (test code = SEG) % 39-69 LYMPHOCYTE (test code = LYMPH) % 25-55 MONOCYTE (test code = MON) % 0-10 EOSINOPHIL (test code = EOS) % 0.0-5.0 CABOT RINGS (test code = CAB) MORPHOLOGY COMMENT (test code = MOC) PLATELET ESTIMATE (test code = PLTEST) PLATELET MORPHOLOGY (test code = PLTMORPH) CBC W/MANUAL [id number] 12:13:00* Test Item Value Reference Range Interpretation Comments WHITE BLOOD CELL (test code = WBC) 1.6 K/mm3 4.5-12.5 L RESULT VERIFIED BY REPEAT ANALYSISHas "Path Review" been performed on patient's currentadmission?If yes, please insert path review specimen here If not, please order "Path Review" for the followingcriteria:1/ WBC count over 40,000/mm3 or below 2,000/mm32/ Platelet counts over 1,000,000/mm3, or below 10,000/mm3, or with abnormal morphology.3/ Abnormal red cell morphology or inclusions which are severe (> 3+) , widespread, or difficult to classify.4/ Abnormal white blood cell morphology: Blasts present in peripheral blood of any patient as a new finding. Abnormal cells suspected of being blasts. Patients with large numbers of immature cells in peripheral blood. Unusual cells or cells not easily classified in peripheral blood.5/ Any smear in which the technologist is uncertain of the classification or the disease. RED BLOOD CELL (test code = RBC) 4.11 mill/mm3 3.7-5.2 N HEMOGLOBIN (test code = HGB) 13.7 gram/dL 11.5-15.5 N HEMATOCRIT (test code = HCT) 41.7 % 36.0-46.0 N MEAN CELL VOLUME (test code = MCV) 101.5 fL 80-98 H MEAN CELL HGB (test code = MCH) 33.3 picogram 27.0-33.0 H MEAN CELL HGB CONCETRATION (test code = MCHC) 32.9 gram/dL 33.0-36. 0 L RED CELL DISTRIBUTION WIDTH (test code = RDW) 13.3 % 11.6-16. 2 N RED CELL DISTRIBUTION WIDTH SD (test code = RDW-SD) 50.3 fL 37 .0-51.0 N PLATELET COUNT (test code = PLT) 44 K/mm3 150-450 LL MEAN PLATELET VOLUME (test code = MPV) 10.6 fL 6.7-11.0 N IMMATURE GRANULOCYTE % (test code = IG%) 0.0 % 0.0-5.0 N NUCLEATED RBC % (test code = NRBC%) 0.0 % 0-0 N NEUTROPHIL # (test code = NT#) 0.92 K/mm3 1.8-7.7 L IMMATURE GRANULOCYTE # (test code = IG#) 0.00 x10 3/uL 0-0.03 N LYMPHOCYTE # (test code = LY#) 0.44 K/mm3 1.0-5.0 L MONOCYTE # (test code = MO#) 0.11 K/mm3 0-0.8 N EOSINOPHIL # (test code = EO#) 0.10 K/mm3 0.0-0.5 N BASOPHIL # (test code = BA#) 0.01 K/mm3 0.0-0.2 N NUCLEATED RBC # (test code = NRBC#) 0.00 K/mm3 0.0-0.1 N MANUAL DIFF REQUIRED (test code = MDIFF) YES STAIN ACCEPTABILITY (test code = STN ACCEPTABLE) TOTAL CELLS COUNTED (test code = TCC) #CELLS SEGMENTED NEUTROPHILS (test code = SEG) % 39-69 LYMPHOCYTE (test code = LYMPH) % 25-55 MONOCYTE (test code = MON) % 0-10 EOSINOPHIL (test code = EOS) % 0.0-5.0 MORPHOLOGY COMMENT (test code = MOC) PLATELET ESTIMATE (test code = PLTEST) PLATELET MORPHOLOGY (test code = PLTMORPH) CBC W/MANUAL [id number] 12:13:00* Test Item Value Reference Range Interpretation Comments WHITE BLOOD CELL (test code = WBC) 1.6 K/mm3 4.5-12.5 L RESULT VERIFIED BY REPEAT ANALYSISHas "Path Review" been performed on patient's currentadmission?If yes, please insert path review specimen here If not, please order "Path Review" for the followingcriteria:1/ WBC count over 40,000/mm3 or below 2,000/mm32/ Platelet counts over 1,000,000/mm3, or below 10,000/mm3, or with abnormal morphology.3/ Abnormal red cell morphology or inclusions which are severe (> 3+) , widespread, or difficult to classify.4/ Abnormal white blood cell morphology: Blasts present in peripheral blood of any patient as a new finding. Abnormal cells suspected of being blasts. Patients with large numbers of immature cells in peripheral blood. Unusual cells or cells not easily classified in peripheral blood.5/ Any smear in which the technologist is uncertain of the classification or the disease. RED BLOOD CELL (test code = RBC) 4.11 mill/mm3 3.7-5.2 N HEMOGLOBIN (test code = HGB) 13.7 gram/dL 11.5-15.5 N HEMATOCRIT (test code = HCT) 41.7 % 36.0-46.0 N MEAN CELL VOLUME (test code = MCV) 101.5 fL 80-98 H MEAN CELL HGB (test code = MCH) 33.3 picogram 27.0-33.0 H MEAN CELL HGB CONCETRATION (test code = MCHC) 32.9 gram/dL 33.0-36. 0 L RED CELL DISTRIBUTION WIDTH (test code = RDW) 13.3 % 11.6-16. 2 N RED CELL DISTRIBUTION WIDTH SD (test code = RDW-SD) 50.3 fL 37 .0-51.0 N PLATELET COUNT (test code = PLT) 44 K/mm3 150-450 LL MEAN PLATELET VOLUME (test code = MPV) 10.6 fL 6.7-11.0 N IMMATURE GRANULOCYTE % (test code = IG%) 0.0 % 0.0-5.0 N NUCLEATED RBC % (test code = NRBC%) 0.0 % 0-0 N NEUTROPHIL # (test code = NT#) 0.92 K/mm3 1.8-7.7 L IMMATURE GRANULOCYTE # (test code = IG#) 0.00 x10 3/uL 0-0.03 N LYMPHOCYTE # (test code = LY#) 0.44 K/mm3 1.0-5.0 L MONOCYTE # (test code = MO#) 0.11 K/mm3 0-0.8 N EOSINOPHIL # (test code = EO#) 0.10 K/mm3 0.0-0.5 N BASOPHIL # (test code = BA#) 0.01 K/mm3 0.0-0.2 N NUCLEATED RBC # (test code = NRBC#) 0.00 K/mm3 0.0-0.1 N MANUAL DIFF REQUIRED (test code = MDIFF) YES STAIN ACCEPTABILITY (test code = STN ACCEPTABLE) TOTAL CELLS COUNTED (test code = TCC) #CELLS SEGMENTED NEUTROPHILS (test code = SEG) % 39-69 LYMPHOCYTE (test code = LYMPH) % 25-55 MONOCYTE (test code = MON) % 0-10 MORPHOLOGY COMMENT (test code = MOC) PLATELET ESTIMATE (test code = PLTEST) PLATELET MORPHOLOGY (test code = PLTMORPH) CBC W/MANUAL [id number] 12:12:00* Test Item Value Reference Range Interpretation Comments WHITE BLOOD CELL (test code = WBC) 1.6 K/mm3 4.5-12.5 L RESULT VERIFIED BY REPEAT ANALYSISHas "Path Review" been performed on patient's currentadmission?If yes, please insert path review specimen here If not, please order "Path Review" for the followingcriteria:1/ WBC count over 40,000/mm3 or below 2,000/mm32/ Platelet counts over 1,000,000/mm3, or below 10,000/mm3, or with abnormal morphology.3/ Abnormal red cell morphology or inclusions which are severe (> 3+) , widespread, or difficult to classify.4/ Abnormal white blood cell morphology: Blasts present in peripheral blood of any patient as a new finding. Abnormal cells suspected of being blasts. Patients with large numbers of immature cells in peripheral blood. Unusual cells or cells not easily classified in peripheral blood.5/ Any smear in which the technologist is uncertain of the classification or the disease. RED BLOOD CELL (test code = RBC) 4.11 mill/mm3 3.7-5.2 N HEMOGLOBIN (test code = HGB) 13.7 gram/dL 11.5-15.5 N HEMATOCRIT (test code = HCT) 41.7 % 36.0-46.0 N MEAN CELL VOLUME (test code = MCV) 101.5 fL 80-98 H MEAN CELL HGB (test code = MCH) 33.3 picogram 27.0-33.0 H MEAN CELL HGB CONCETRATION (test code = MCHC) 32.9 gram/dL 33.0-36. 0 L RED CELL DISTRIBUTION WIDTH (test code = RDW) 13.3 % 11.6-16. 2 N RED CELL DISTRIBUTION WIDTH SD (test code = RDW-SD) 50.3 fL 37 .0-51.0 N PLATELET COUNT (test code = PLT) 44 K/mm3 150-450 LL MEAN PLATELET VOLUME (test code = MPV) 10.6 fL 6.7-11.0 N IMMATURE GRANULOCYTE % (test code = IG%) 0.0 % 0.0-5.0 N NUCLEATED RBC % (test code = NRBC%) 0.0 % 0-0 N NEUTROPHIL # (test code = NT#) 0.92 K/mm3 1.8-7.7 L IMMATURE GRANULOCYTE # (test code = IG#) 0.00 x10 3/uL 0-0.03 N LYMPHOCYTE # (test code = LY#) 0.44 K/mm3 1.0-5.0 L MONOCYTE # (test code = MO#) 0.11 K/mm3 0-0.8 N EOSINOPHIL # (test code = EO#) 0.10 K/mm3 0.0-0.5 N BASOPHIL # (test code = BA#) 0.01 K/mm3 0.0-0.2 N NUCLEATED RBC # (test code = NRBC#) 0.00 K/mm3 0.0-0.1 N MANUAL DIFF REQUIRED (test code = MDIFF) YES STAIN ACCEPTABILITY (test code = STN ACCEPTABLE) TOTAL CELLS COUNTED (test code = TCC) #CELLS SEGMENTED NEUTROPHILS (test code = SEG) % 39-69 LYMPHOCYTE (test code = LYMPH) % 25-55 MONOCYTE (test code = MON) % 0-10 EOSINOPHIL (test code = EOS) % 0.0-5.0 CABOT RINGS (test code = CAB) MORPHOLOGY COMMENT (test code = MOC) PLATELET ESTIMATE (test code = PLTEST) PLATELET MORPHOLOGY (test code = PLTMORPH) CBC W/MANUAL [id number] 12:12:00* Test Item Value Reference Range Interpretation Comments WHITE BLOOD CELL (test code = WBC) 1.6 K/mm3 4.5-12.5 L RESULT VERIFIED BY REPEAT ANALYSISHas "Path Review" been performed on patient's currentadmission?If yes, please insert path review specimen here If not, please order "Path Review" for the followingcriteria:1/ WBC count over 40,000/mm3 or below 2,000/mm32/ Platelet counts over 1,000,000/mm3, or below 10,000/mm3, or with abnormal morphology.3/ Abnormal red cell morphology or inclusions which are severe (> 3+) , widespread, or difficult to classify.4/ Abnormal white blood cell morphology: Blasts present in peripheral blood of any patient as a new finding. Abnormal cells suspected of being blasts. Patients with large numbers of immature cells in peripheral blood. Unusual cells or cells not easily classified in peripheral blood.5/ Any smear in which the technologist is uncertain of the classification or the disease. RED BLOOD CELL (test code = RBC) 4.11 mill/mm3 3.7-5.2 N HEMOGLOBIN (test code = HGB) 13.7 gram/dL 11.5-15.5 N HEMATOCRIT (test code = HCT) 41.7 % 36.0-46.0 N MEAN CELL VOLUME (test code = MCV) 101.5 fL 80-98 H MEAN CELL HGB (test code = MCH) 33.3 picogram 27.0-33.0 H MEAN CELL HGB CONCETRATION (test code = MCHC) 32.9 gram/dL 33.0-36. 0 L RED CELL DISTRIBUTION WIDTH (test code = RDW) 13.3 % 11.6-16. 2 N RED CELL DISTRIBUTION WIDTH SD (test code = RDW-SD) 50.3 fL 37 .0-51.0 N PLATELET COUNT (test code = PLT) 44 K/mm3 150-450 LL MEAN PLATELET VOLUME (test code = MPV) 10.6 fL 6.7-11.0 N IMMATURE GRANULOCYTE % (test code = IG%) 0.0 % 0.0-5.0 N NUCLEATED RBC % (test code = NRBC%) 0.0 % 0-0 N NEUTROPHIL # (test code = NT#) 0.92 K/mm3 1.8-7.7 L IMMATURE GRANULOCYTE # (test code = IG#) 0.00 x10 3/uL 0-0.03 N LYMPHOCYTE # (test code = LY#) 0.44 K/mm3 1.0-5.0 L MONOCYTE # (test code = MO#) 0.11 K/mm3 0-0.8 N EOSINOPHIL # (test code = EO#) 0.10 K/mm3 0.0-0.5 N BASOPHIL # (test code = BA#) 0.01 K/mm3 0.0-0.2 N NUCLEATED RBC # (test code = NRBC#) 0.00 K/mm3 0.0-0.1 N MANUAL DIFF REQUIRED (test code = MDIFF) YES STAIN ACCEPTABILITY (test code = STN ACCEPTABLE) TOTAL CELLS COUNTED (test code = TCC) #CELLS SEGMENTED NEUTROPHILS (test code = SEG) % 39-69 LYMPHOCYTE (test code = LYMPH) % 25-55 MONOCYTE (test code = MON) % 0-10 EOSINOPHIL (test code = EOS) % 0.0-5.0 CABOT RINGS (test code = CAB) MORPHOLOGY COMMENT (test code = MOC) PLATELET ESTIMATE (test code = PLTEST) PLATELET MORPHOLOGY (test code = PLTMORPH) BASIC METABOLIC [id number] 12:04:00* Test Item Value Reference Range Interpretation Comments SODIUM (test code = NA) 139 mmol/L 136-145 N POTASSIUM (test code = K) 4.1 mmol/L 3.5-5.1 N CHLORIDE (test code = CL) 111.0 mmol/L 98-107 H CARBON DIOXIDE (test code = CO2) 23.0 mmol/L 21-32 N ANION GAP (test code = GAP) 9.1 10-20 L GLUCOSE (test code = GLU) 98 mg/dL 74-106 N BLOOD UREA NITROGEN (test code = BUN) 16 mg/dL 7-18 N GLOMERULAR FILTRATION RATE (test code = GFR) > 60 mL/min >=60 Estimated GFR by using Modified MDRD formula.Chronic kidney disease is defined as either kidney damageor GFR <60 mL/min/1.73 m2 for >3 months. CREATININE (test code = CREAT) 0.50 mg/dL 0.55-1.02 L Note change in reference range due to change in reagent. BUN/CREATININE RATIO (test code = BUN/CREA) 29.2 10-20 H CALCIUM (test code = CA) 8.7 mg/dL 8.5-10.1 N HEPATIC FUNCTION [id number] 12:04:00* Test Item Value Reference Range Interpretation Comments TOTAL PROTEIN (test code = PROT) 7.9 gram/dL 6.4-8.2 N ALBUMIN (test code = ALB) 3.4 g/dL 3.4-5.0 N GLOBULIN (test code = GLOB) 4.5 gram/dL 2.7-4.2 H ALBUMIN/GLOBULIN RATIO (test code = A/G) 0.8 0.75-1.50 N BILIRUBIN TOTAL (test code = BILT) 0.90 mg/dL 0.0-1.0 N BILIRUBIN DIRECT (test code = BILD) 0.37 mg/dL 0.0-0.20 H SGOT/AST (test code = AST) 40 IUnit/L 15-37 H SGPT/ALT (test code = ALT) 34 IUnit/L 12-78 N ALKALINE PHOSPHATASE TOTAL (test code = ALKP) 105 IUnit/L 45-117 N Note change in reference range due to change in reagent. PROTHROMBIN [id number] 11:59:00* Test Item Value Reference Range Interpretation Comments PROTHROMBIN TIME PATIENT (test code = PTP) 13.6 seconds 9.0-14.0 N INTERNATIONAL NORMAL RATIO (test code = INR) 1.1 0.8-1.2 N The therapeutic range for oral anticoagulant therapy formost indications is an international normalized ratio (INR)of between 2.0 and 3.0. The recommended therapeutic INRrange for various clinical situations is listed below: Clinical Situation INR range Pulmonary e mbolism treatment (2.0-3.0)Venous thrombosis treatmentVenous thrombosis prophylaxis (high risk surgery)Prevention of systemic embolism from: Acute myocardial infarction Valvular heart disease Atrial fibrillation Mechanical prosthetic heart valves (2.5-3.5) IS PATIENT ON ANTICOAGULANTS? NTHROMBOPLASTIN TIME [id number] 11:59:00* Test Item Value Reference Range Interpretation Comments THROMBOPLASTIN TIME PARTIAL (test code = PTT) 25.5 seconds 25.0-36. 5 N IS PATIENT ON ANTICOAGULANTS? NBASIC METABOLIC [id number] 11:54:00* Test Item Value Reference Range Interpretation Comments SODIUM (test code = NA) 139 mmol/L 136-145 N POTASSIUM (test code = K) 4.1 mmol/L 3.5-5.1 N CHLORIDE (test code = CL) 111.0 mmol/L 98-107 H CARBON DIOXIDE (test code = CO2) mmol/L 21-32 ANION GAP (test code = GAP) 10-20 GLUCOSE (test code = GLU) mg/dL 74-106 BLOOD UREA NITROGEN (test code = BUN) mg/dL 7-18 GLOMERULAR FILTRATION RATE (test code = GFR) mL/min >=60 CREATININE (test code = CREAT) mg/dL 0.55-1.02 BUN/CREATININE RATIO (test code = BUN/CREA) 10-20 CALCIUM (test code = CA) mg/dL 8.5-10.1 HEPATIC FUNCTION [id number] 11:54:00* Test Item Value Reference Range Interpretation Comments TOTAL PROTEIN (test code = PROT) gram/dL 6.4-8.2 ALBUMIN (test code = ALB) g/dL 3.4-5.0 GLOBULIN (test code = GLOB) gram/dL 2.7-4.2 ALBUMIN/GLOBULIN RATIO (test code = A/G) 0.75-1.50 BILIRUBIN TOTAL (test code = BILT) mg/dL 0.0-1.0 BILIRUBIN DIRECT (test code = BILD) mg/dL 0.0-0.20 SGOT/AST (test code = AST) IUnit/L 15-37 SGPT/ALT (test code = ALT) IUnit/L 12-78 ALKALINE PHOSPHATASE TOTAL (test code = ALKP) IUnit/L 45-117 URINALYSIS W/ REFLEX URINE [id number] 15:52:00* Test Item Value Reference Range Interpretation Comments COLOR (BEAKER) (test code = 470) Yellow CLARITY (BEAKER) (test code = 469) Clear SPECIFIC GRAVITY UA (BEAKER) (test code = 468) 1.007 1.001-1 .035 PH UA (BEAKER) (test code = 467) 5.5 5.0-8.0 PROTEIN UA (BEAKER) (test code = 464) Negative Negative GLUCOSE UA (BEAKER) (test code = 365) Negative Negative KETONES UA (BEAKER) (test code = 371) Negative Negative BILIRUBIN UA (BEAKER) (test code = 462) Negative Negative BLOOD UA (BEAKER) (test code = 461) Negative Negative NITRITE UA (BEAKER) (test code = 465) Negative Negative LEUKOCYTE ESTERASE UA (BEAKER) (test code = 466) Negative Negat jenna UROBILINOGEN UA (BEAKER) (test code = 463) 0.2 mg/dL 0.2-1.0 RBC UA (BEAKER) (test code = 519) < /HPF WBC UA (BEAKER) (test code = 520) 1 /HPF MUCUS (BEAKER) (test code = 1574) Rare SQUAMOUS EPITHELIAL (BEAKER) (test code = 516) 1 /HPF SOURCE(BEAKER) (test code = 2795) [id number] 15:00:00* Test Item Value Reference Range Interpretation Comments LIPASE (BEAKER) (test code = 749) 48 U/L 8-78 BASIC METABOLIC [id number] 15:00:00* Test Item Value Reference Range Interpretation Comments SODIUM (BEAKER) (test code = 381) 135 meq/L 136-145 L POTASSIUM (BEAKER) (test code = 379) 4.6 meq/L 3.5-5.1 Specimen slightly hemolyzed CHLORIDE (BEAKER) (test code = 382) 108 meq/L 98-107 H CO2 (BEAKER) (test code = 355) 19 meq/L 22-29 L BLOOD UREA NITROGEN (BEAKER) (test code = 354) 9 mg/dL 7-21 CREATININE (BEAKER) (test code = 358) 0.66 mg/dL 0.57-1.25 Specimen slightly hemolyzed GLUCOSE RANDOM (BEAKER) (test code = 652) 84 mg/dL 70-105 CALCIUM (BEAKER) (test code = 697) 9.0 mg/dL 8.4-10.2 EGFR (BEAKER) (test code = 1092) 94 mL/min/1.73 sq m ESTIMATED GFR IS NOT ACCURATE CREATININE CLEARANCE IN PREDICTING GLOMERULAR FILTRATION RATE. ESTIMATED GFR IS NOT APPLICABLE FOR DIALYSIS PATIENTS. HEPATIC FUNCTION [id number] 15:00:00* Test Item Value Reference Range Interpretation Comments TOTAL PROTEIN (BEAKER) (test code = 770) 8.0 gm/dL 6.0-8.3 Specimen slightly hemolyzed ALBUMIN (BEAKER) (test code = 1145) 3.8 g/dL 3.5-5.0 Specimen slightly hemolyzed BILIRUBIN TOTAL (BEAKER) (test code = 377) 1.6 mg/dL 0.2-1.2 H Specimen slightly hemolyzed BILIRUBIN DIRECT (BEAKER) (test code = 706) 0.8 mg/dL 0.1-0.5 H Specimen slightly hemolyzed ALKALINE PHOSPHATASE (BEAKER) (test code = 346) 91 U/L 40-150 AST (SGOT) (BEAKER) (test code = 353) 39 U/L 5-34 H Specimen slightly hemolyzed ALT (SGPT) (BEAKER) (test code = 347) 24 U/L 6-55 Specimen slightly hemolyzed LACTIC ACID, VENOUS, WHOLE [id number] 14:56:00* Test Item Value Reference Range Interpretation Comments LACTATE BLOOD VENOUS (2) (BEAKER) (test code = 2872) 1.3 mmol/L 0 .5-2.2 Specimen moderately hemolyzed CBC W/PLT COUNT & AUTO [id number] 14:44:00* Test Item Value Reference Range Interpretation Comments WHITE BLOOD CELL COUNT (BEAKER) (test code = 775) 2.5 K/ L 3.5- 10.5 L RED BLOOD CELL COUNT (BEAKER) (test code = 761) 4.24 M/ L 3.93-5 .22 HEMOGLOBIN (BEAKER) (test code = 410) 14.5 GM/DL 11.2-15.7 HEMATOCRIT (BEAKER) (test code = 411) 42.9 % 34.1-44.9 MEAN CORPUSCULAR VOLUME (BEAKER) (test code = 753) 101.2 fL 79. 4-94.8 H MEAN CORPUSCULAR HEMOGLOBIN (BEAKER) (test code = 751) 34.2 pg 25.6-32.2 H MEAN CORPUSCULAR HEMOGLOBIN CONC (BEAKER) (test code = 752) 33.8 GM/DL 32.2-35.5 RED CELL DISTRIBUTION WIDTH (BEAKER) (test code = 412) 13.9 % 11.7-14.4 PLATELET COUNT (BEAKER) (test code = 756) 41 K/CU MM 150-450 L MEAN PLATELET VOLUME (BEAKER) (test code = 754) 9.4 fL 9.4-12 .3 NUCLEATED RED BLOOD CELLS (BEAKER) (test code = 413) 0 /100 WBC 0 -0 NEUTROPHILS RELATIVE PERCENT (BEAKER) (test code = 429) 62 % LYMPHOCYTES RELATIVE PERCENT (BEAKER) (test code = 430) 27 % MONOCYTES RELATIVE PERCENT (BEAKER) (test code = 431) 6 % EOSINOPHILS RELATIVE PERCENT (BEAKER) (test code = 432) 5 % BASOPHILS RELATIVE PERCENT (BEAKER) (test code = 437) 0 % NEUTROPHILS ABSOLUTE COUNT (BEAKER) (test code = 670) 1.57 K/ L 1.56-6.13 LYMPHOCYTES ABSOLUTE COUNT (BEAKER) (test code = 414) 0.67 K/ L 1.18-3.74 L MONOCYTES ABSOLUTE COUNT (BEAKER) (test code = 415) 0.14 K/ L 0. 24-0.36 L EOSINOPHILS ABSOLUTE COUNT (BEAKER) (test code = 416) 0.12 K/ L 0.04-0.36 BASOPHILS ABSOLUTE COUNT (BEAKER) (test code = 417) 0.01 K/ L 0. 01-0.08 IMMATURE GRANULOCYTES-RELATIVE PERCENT (BEAKER) (test code = 2801) 0 % 0-1 HEPATITIS C PCR, [id number] 15:25:00* Test Item Value Reference Range Interpretation Comments HCV RESULT COMPONENT (BEAKER) (test code = 2699) HCV RNA not detected HCV RNA not detected This test uses a Real-Time Polymerase Chain Reaction (RT-PCR) methodology and wa s performed using [employer] Ampliprep/NENITA TaqMan HCV test kit version 2.0 ([employer]).Reportable range for this assay is 15 - 100,000,000 IU per mL (1.18 - 8.00 Log IU/mL).ANTI-NUCLEAR ANTIBODY (DYLAN)2017-05-11 08:54:00* Test Item Value Reference Range Interpretation Comments ANTI-NUCLEAR ANTIBODY (DYLAN) (BEAKER) (test code = 418) Positive Negative A DYLAN TITER AND [id number] 08:54:00* Test Item Value Reference Range Interpretation Comments DYLAN TITER (BEAKER) (test code = 1541) :160 DYLAN PATTERN (BEAKER) (test code = 1781) Homogeneous (MANUAL DIFFERENTIAL)2017-05-10 22:02:00* Test Item Value Reference Range Interpretation Comments NEUTROPHILS - REL (DIFF) (BEAKER) (test code = 1359) 65 % LYMPHOCYTES - REL (DIFF) (BEAKER) (test code = 1360) 25 % MONOCYTES - REL (DIFF) (BEAKER) (test code = 1361) 6 % EOSINOPHILS - REL (DIFF) (BEAKER) (test code = 1362) 4 % NEUTROPHILS - ABS (DIFF) (BEAKER) (test code = 1365) 1.30 K/ L 1 .80-8.00 L LYMPHOCYTES - ABS (DIFF) (BEAKER) (test code = 1366) 0.50 K/ L 1 .48-4.50 L MONOCYTES - ABS (DIFF) (BEAKER) (test code = 1367) 0.12 K/ L 0.0 0-1.30 EOSINOPHILS - ABS (DIFF) (BEAKER) (test code = 1368) 0.08 K/ L 0 .00-0.50 TOTAL COUNTED (BEAKER) (test code = 1351) 100 WBC MORPHOLOGY (BEAKER) (test code = 487) Normal PLT MORPHOLOGY (BEAKER) (test code = 486) Normal POIKILOCYTES (BEAKER) (test code = 966) 1+ few POLYCHROMATOPHILLIC RBCS(BEAKER) (test code = 478) 1+ few [id number] 17:49:00* Test Item Value Reference Range Interpretation Comments ALPHA-1 ANTITRYPSIN (BEAKER) (test code = 502) 142.50 mg/dL 90.00-2 00.00 HEPATITIS B SURFACE [id number] 17:04:00* Test Item Value Reference Range Interpretation Comments HEPATITIS B SURFACE ANTIBODY (BEAKER) (test code = 647) 9.5 mIU/mL <8.0 H [id number] 16:50:00* Test Item Value Reference Range Interpretation Comments FERRITIN (BEAKER) (test code = 361) 69 ng/mL 5-275 HEPATITIS A ANTIBODY, [id number] 14:18:00* Test Item Value Reference Range Interpretation Comments HEPATITIS A IGG ANTIBODY (BEAKER) (test code = 2797) Reactive N onreactive A HEPATITIS B SURFACE [id number] 13:20:00* Test Item Value Reference Range Interpretation Comments HEPATITIS B SURFACE ANTIGEN (2) (BEAKER) (test code = 2585) Nonreactive Nonreactive ALPHA FETOPROTEIN (AFP), TUMOR [id number] 13:19:00* Test Item Value Reference Range Interpretation Comments ALPHA-FETOPROTEIN (BEAKER) (test code = 1094) 3.5 ng/mL <10.0 HEPATITIS A ANTIBODY, [id number] 13:19:00* Test Item Value Reference Range Interpretation Comments HEPATITIS A IGM ANTIBODY (BEAKER) (test code = 498) Nonreactive No nreactive HEPATITIS B CORE ANTIBODY, [id number] 13:19:00* Test Item Value Reference Range Interpretation Comments HEPATITIS B CORE TOTAL ANTIBODY (BEAKER) (test code = 497) N onreactive Nonreactive COMPREHENSIVE METABOLIC [id number] 12:58:00* Test Item Value Reference Range Interpretation Comments TOTAL PROTEIN (BEAKER) (test code = 770) 7.5 gm/dL 6.0-8.3 ALBUMIN (BEAKER) (test code = 1145) 3.6 g/dL 3.5-5.0 ALKALINE PHOSPHATASE (BEAKER) (test code = 346) 109 U/L 40-150 BILIRUBIN TOTAL (BEAKER) (test code = 377) 1.1 mg/dL 0.2-1.2 SODIUM (BEAKER) (test code = 381) 137 meq/L 136-145 POTASSIUM (BEAKER) (test code = 379) 4.0 meq/L 3.5-5.1 CHLORIDE (BEAKER) (test code = 382) 110 meq/L 98-107 H CO2 (BEAKER) (test code = 355) 21 meq/L 22-29 L BLOOD UREA NITROGEN (BEAKER) (test code = 354) 13 mg/dL 7-21 CREATININE (BEAKER) (test code = 358) 0.63 mg/dL 0.57-1.25 GLUCOSE RANDOM (BEAKER) (test code = 652) 79 mg/dL 70-105 CALCIUM (BEAKER) (test code = 697) 8.9 mg/dL 8.4-10.2 AST (SGOT) (BEAKER) (test code = 353) 41 U/L 5-34 H ALT (SGPT) (BEAKER) (test code = 347) 31 U/L 6-55 EGFR (BEAKER) (test code = 1092) 100 mL/min/1.73 sq m ESTIMATED GFR IS NOT ACCURATE CREATININE CLEARANCE IN PREDICTING GLOMERULAR FILTRATION RATE. ESTIMATED GFR IS NOT APPLICABLE FOR DIALYSIS PATIENTS. BILIRUBIN, [id number] 12:58:00* Test Item Value Reference Range Interpretation Comments BILIRUBIN DIRECT (BEAKER) (test code = 706) 0.5 mg/dL 0.1-0.5 IRON, TIBC, % SAT. (WITHOUT FERRITIN)2017-05-10 12:56:00* Test Item Value Reference Range Interpretation Comments IRON (BEAKER) (test code = 547) 126 ug/dL 40-160 TOTAL IRON BINDING CAPACITY (BEAKER) (test code = 769) 335 ug/dL 250-450 IRON % SATURATION (2) (BEAKER) (test code = 2590) 38 % 20-5 5 PROTHROMBIN [id number] 12:43:00* Test Item Value Reference Range Interpretation Comments PROTIME (BEAKER) (test code = 759) 15.8 seconds 11.7-14.7 H INR (BEAKER) (test code = 370) 1.3 <=5.9 RECOMMENDED COUMADIN/WARFARIN INR THERAPY RANGESSTANDARD DOSE: 2.0 - 3.0 Inclu liliane: PROPHYLAXIS for venous thrombosis, systemic embolization; TREATMENT for mallory ous thrombosis and/or pulmonary embolus.HIGH RISK: Target INR is 2.5-3.5 for pat ients with mechanical heart valves.CBC W/PLT COUNT & AUTO [id number] 12:12:00* Test Item Value Reference Range Interpretation Comments WHITE BLOOD CELL COUNT (BEAKER) (test code = 775) 2.0 K/ L 3.5- 10.5 L RED BLOOD CELL COUNT (BEAKER) (test code = 761) 3.86 M/ L 3.93-5 .22 L HEMOGLOBIN (BEAKER) (test code = 410) 13.1 GM/DL 11.2-15.7 HEMATOCRIT (BEAKER) (test code = 411) 37.3 % 34.1-44.9 MEAN CORPUSCULAR VOLUME (BEAKER) (test code = 753) 96.6 fL 79. 4-94.8 H MEAN CORPUSCULAR HEMOGLOBIN (BEAKER) (test code = 751) 33.9 pg 25.6-32.2 H MEAN CORPUSCULAR HEMOGLOBIN CONC (BEAKER) (test code = 752) 35.1 GM/DL 32.2-35.5 RED CELL DISTRIBUTION WIDTH (BEAKER) (test code = 412) 13.8 % 11.7-14.4 PLATELET COUNT (BEAKER) (test code = 756) 33 K/CU MM 150-450 L MEAN PLATELET VOLUME (BEAKER) (test code = 754) 10.1 fL 9.4-12 .3 NUCLEATED RED BLOOD CELLS (BEAKER) (test code = 413) 0 /100 WBC 0 -0 IMMATURE GRANULOCYTES-RELATIVE PERCENT (BEAKER) (test code = 1810) 1 % 0-1
[2020-01-11] MEDS ORDERED: PHENAZOPYRIDIN100 MG PO (12:37)
[2020-01-11] MEDS ORDERED: CIPRO500 MG PO (12:47)
== END 2020-01-11 13:00 | disposition home or self-care (01) ==
LOC: FSED 11:46
DX: R30.0 Dysuria (principal); N39.0 Urinary tract infection, site not specified; K76.9 Liver disease, unspecified; F41.9 Anxiety disorder, unspecified; Z86.718 Personal history of other venous thrombosis and embolism
CPT/HCPCS: 81003; 99283

== ENCOUNTER 2020-06-27 12:06 | Emergency (ER) | payer OTHER ==
[~2020-06-27] VITALS: Ht 165.1 cm; Wt 109.8 kg
[~2020-06-27 12:06] MED LIST: CIPRO500 MG PO; PHENAZOPYRIDIN100 MG PO; PROPRANOLOL HCL10 MG PO
[2020-06-27] MEDS ORDERED: NAPROSYN500 MG PO (13:20)
== END 2020-06-27 13:28 | disposition home or self-care (01) ==
LOC: FSED 12:34
DX: S40.011A Contusion of right shoulder, initial encounter (principal); S90.01XA Contusion of right ankle, initial encounter; K76.9 Liver disease, unspecified; F41.9 Anxiety disorder, unspecified; Z86.718 Personal history of other venous thrombosis and embolism
CPT/HCPCS: 99283

== ENCOUNTER 2021-02-02 19:16 | Emergency (ER) | payer OTHER ==
[~2021-02-02] VITALS: Ht 165.1 cm; Wt 105.7 kg
[~2021-02-02 19:16] MED LIST changes: +NAPROSYN500 MG PO
[2021-02-02] MEDS ORDERED: CLEOCIN HCL300 MG PO (20:55)
[2021-02-02] MEDS ORDERED: MUPIROCIN22 GM TOP (20:56)
== END 2021-02-02 21:02 | disposition home or self-care (01) ==
LOC: FSED 20:50
DX: J34.0 Abscess, furuncle and carbuncle of nose (principal); I10 Essential (primary) hypertension; K76.9 Liver disease, unspecified; F41.9 Anxiety disorder, unspecified; Z86.718 Personal history of other venous thrombosis and embolism; Z86.14 Personal history of Methicillin resistant Staphylococcus aureus infection
CPT/HCPCS: 99282

== ENCOUNTER 2021-08-08 11:15 | Emergency (ER) | payer OTHER ==
[~2021-08-08] VITALS: Ht 165.1 cm; Wt 100.7 kg
[~2021-08-08 11:15] MED LIST changes: +CLEOCIN HCL300 MG PO; +MUPIROCIN22 GM TOP
[2021-08-08] MEDS ORDERED: CIPROFLOXACIN2.5 ML OD (11:53)
[2021-08-08] MEDS ORDERED: CLINDAMYCIN HC300 MG PO (11:53)
== END 2021-08-08 12:12 | disposition home or self-care (01) ==
LOC: FSED 11:22
DX: H00.012 Hordeolum externum right lower eyelid (principal); H00.032 Abscess of right lower eyelid; K76.9 Liver disease, unspecified; F41.9 Anxiety disorder, unspecified
CPT/HCPCS: 99282

== ENCOUNTER 2024-03-29 12:05 | Emergency (ER) | payer OTHER ==
[~2024-03-29] VITALS: Ht 165.1 cm; Wt 118.5 kg
[~2024-03-29 12:05] MED LIST changes: +CIPROFLOXACIN2.5 ML OD; +CLINDAMYCIN HC300 MG PO
[2024-03-29 12:15] VITALS: PULSE 66; RESP 18; TEMP 97.7
[2024-03-29] MEDS ORDERED: BACTRIM 400-801 EACH PO (12:42)
[2024-03-29 12:55] VITALS: BP 125/73; PULSE 64; RESP 18; TEMP 97.7; O2SAT 95
== END 2024-03-29 12:50 | disposition home or self-care (01) ==
LOC: FSED 12:22
DX: L03.211 Cellulitis of face (principal); L73.9 Follicular disorder, unspecified; K76.9 Liver disease, unspecified; F41.9 Anxiety disorder, unspecified; Z86.711 Personal history of pulmonary embolism
CPT/HCPCS: 99284